=== PATIENT | male | born 1955 | race African-American/Black ===

== ENCOUNTER 2016-09-20 15:12 | Inpatient (IN) | payer BC, MEDICAID ==
[~2016-09-20] VITALS: Ht 193 cm; Wt 157.9 kg
[2016-09-20] MEDS ORDERED: ONDANSETRON HCL 4MG/2ML VIAL IV ONE (16:00)
[2016-09-20] MEDS ORDERED: LEVOFLOXACIN 750MG PREMIX 150 ML IV ONE (16:00)
[2016-09-20] MEDS ORDERED: MORPHINE SULFATE 4 MG/ML CPJ (NOT FOR IM USE) IV ONE (16:00)
[2016-09-20] MEDS ORDERED: VANCOMYCIN 1 G PREMIX 200 ML IV ONE (16:00)
[2016-09-20 16:15] LABS: BASOPHILS % 0.6 % (0.0-2.0); EOSINOPHILS % 2.1 % (0.0-5.0); HEMATOCRIT. 39.7 % (42.0-52.0); MEAN CORPUSCULAR HEMOGLOBIN 29.3 pg (28.0-32.0); MEAN CORPUSCULAR HGB CONC 32.6 g/dL (31.0-37.0); MEAN CORPUSCULAR VOLUME 89.8 fL (80.0-94.0); MEAN PLATELET VOLUME 8.4 fl (7.4-10.4); MONOCYTES % 10.3 % (2.0-8.0); PLATELET 231 x1000/uL (130-400); RED BLOOD CELL COUNT 4.42 mill/uL (4.7-6.1); RED CELL DISTRIBUTION WIDTH 14.5 % (11.6-14.6)
[2016-09-20 16:22] LABS: PROTHROMBIN TIME 10.9 sec
[2016-09-20 16:32] LABS: ALANINE AMINOTRANSFERASE 16 IU/L (13-61); ALBUMIN 2.8 g/dL (3.4-5.0); ANION GAP 9; CALCIUM 8.3 mg/dL (8.5-10.1); CARBON DIOXIDE 32 mEq/L (21-32); CHLORIDE 104 mEq/L (98-107); INDEX HEMOLYSI 1 (1-3); INDEX ICTERIC 1 (1-4); INDEX LIPEMIC 1 (1-3); NT PRO B-TYPE NATRIURETIC PEP 226 pg/mL (5-125); TROPONIN I < 0.02 ng/mL (0.00-0.04); UREA NITROGEN BLOOD 24 mg/dL (7-21); eGFR > 60 mL/min (>60)
[2016-09-20] MEDS ORDERED: ALBUTEROL (0.083%) 2.5MG/3ML NEB HHN STA (17:15)
[2016-09-20 17:36] LABS: GLUCOSE URINE NEGATIVE (NEGATIVE); KETONES URINE NEGATIVE (NEGATIVE); LEUKOCYTE ESTERASE URINE TRACE (NEGATIVE); NITRITE URINE NEGATIVE (NEGATIVE); OCCULT BLOOD URINE NEGATIVE (NEGATIVE); PH URINE 5.5 (4.5-8.0); PROTEIN URINE NEGATIVE (NEGATIVE); SPECIFIC GRAVITY URINE 1.016 (1.005-1.030)
[2016-09-20 17:38] LABS: CLARITY URINE CLEAR (CLEAR); COLOR URINE YELLOW (YELLOW)
[2016-09-20 18:09] LABS: BACTERIA URINE TRACE; RBC URINE NONE SEEN /hpf (0-2); SQUAMOUS EPITHELIAL CELL URINE FEW /lpf (RARE/1+); WBC URINE 0-2 /hpf (0-2)
[2016-09-20] MEDS ORDERED: HYDROCODONE/ACETAMINOPHEN 5/325MG TABLET PO ONE (18:30)
[2016-09-20 20:25] VITALS: BP 135/83
[2016-09-20 20:32] VITALS: BP 135/83
[2016-09-20] MEDS ORDERED: DOCUSATE SODIUM 100MG CAPSULE PO PRN (22:15)
[2016-09-20] MEDS ORDERED: ONDANSETRON HCL 4MG/2ML VIAL IV PRN (22:15)
[2016-09-20] MEDS ORDERED: MAGNESIUM/ALUMINUM HYDROXIDE/SIMETHICONE 30ML UDC PO PRN (22:15)
[2016-09-20] MEDS ORDERED: CLONIDINE 0.1MG TABLET PO PRN (22:15)
[2016-09-20] MEDS ORDERED: ACETAMINOPHEN 325MG TABLET PO PRN (22:15)
[2016-09-20] MEDS: MORPHINE SULFATE 2 MG/ML CPJ (NOT FOR IM USE) IV PRN (22:48)
[2016-09-21] MEDS ORDERED: VANCOMYCIN 2,000 MG in DEXT 5% WATER 500 ML IV NR ×2
[2016-09-21 00:22] VITALS: BP_SYST 102; BP_SYST 137; BP_DIAS 77; BP_DIAS 85
[2016-09-21 00:58] LABS: ANION GAP 6; CALCIUM 8.5 mg/dL (8.5-10.1); CARBON DIOXIDE 35 mEq/L (21-32); CHLORIDE 102 mEq/L (98-107); INDEX HEMOLYSI 1 (1-3); INDEX ICTERIC 1 (1-4); INDEX LIPEMIC 1 (1-3); UREA NITROGEN BLOOD 24 mg/dL (7-21); eGFR > 60 mL/min (>60)
[2016-09-21] MEDS: MORPHINE SULFATE 2 MG/ML CPJ (NOT FOR IM USE) IV PRN ×4 (03:00→21:35)
[2016-09-21 04:46] VITALS: BP 151/87
[2016-09-21 06:39] LABS: THYROID STIMULATING HORMONE 0.47 uIU/mL (0.36-3.74)
[2016-09-21] MEDS ORDERED: BACL-141 PO (07:57)
[2016-09-21 07:58] LABS: BASOPHILS % 0.9 % (0.0-2.0); DIFFERENTIAL COMMENT 0; EOSINOPHILS % 0.3 % (0.0-5.0); HEMATOCRIT. 39.1 % (42.0-52.0); HEMOGLOBIN. 12.4 g/dL (14.0-18.0); LYMPHOCYTES % 7.4 % (20.0-50.0); MEAN CORPUSCULAR HEMOGLOBIN 28.8 pg (28.0-32.0); MEAN CORPUSCULAR HGB CONC 31.8 g/dL (31.0-37.0); MEAN CORPUSCULAR VOLUME 90.4 fL (80.0-94.0); MEAN PLATELET VOLUME 8.6 fl (7.4-10.4); NEUTROPHILS % 80.4 % (40.0-76.0); PLATELET 236 x1000/uL (130-400); RED BLOOD CELL COUNT 4.32 mill/uL (4.7-6.1); RED CELL DISTRIBUTION WIDTH 14.7 % (11.6-14.6); WHITE BLOOD COUNT 11.5 x1000/uL (4.5-11.0)
[2016-09-21 08:00] VITALS: BP 150/87
[2016-09-21] MEDS ORDERED: FURO-151 PO (08:03)
[2016-09-21] MEDS ORDERED: METO-296 PO (08:03)
[2016-09-21] MEDS ORDERED: GABA-533 PO (08:03)
[2016-09-21] MEDS ORDERED: POTA20TA75 PO (08:03)
[2016-09-21] MEDS ORDERED: MULT-1146 PO (08:03)
[2016-09-21] MEDS ORDERED: LISI10TA5 PO (08:03)
[2016-09-21 08:04] LABS: CHLORIDE 102 mEq/L (98-107); INDEX HEMOLYSI 1 (1-3); INDEX ICTERIC 1 (1-4); INDEX LIPEMIC 1 (1-3)
[2016-09-21 08:09] LABS: ANION GAP 13; CALCIUM 7.6 mg/dL (8.5-10.1); CARBON DIOXIDE 28 mEq/L (21-32); PHOSPHORUS 3.6 mg/dL (2.5-4.9); UREA NITROGEN BLOOD 16 mg/dL (7-21); eGFR > 60 mL/min (>60)
[2016-09-21 08:13] LABS: *AMPHETAMINES SCREEN URINE NEGATIVE (NEGATIVE); *BARBITURATES SCREEN URINE NEGATIVE (NEGATIVE); *BENZODIAZEPINES SCREEN URINE NEGATIVE (NEGATIVE); *COCAINE SCREEN URINE NEGATIVE (NEGATIVE); CANNABINOID URINE SCREEN NEGATIVE (NEGATIVE); ECSTASY MDMA SCREEN URINE NEGATIVE (NEGATIVE); METHADONE URINE SCREEN NEGATIVE (NEGATIVE); OPIATES URINE SCREEN PRESUMTIVE POSITIVE (NEGATIVE); PHENCYCLIDINE URINE SCREEN NEGATIVE (NEGATIVE)
[2016-09-21] MEDS ORDERED: LISINOPRIL 10MG TABLET PO SCH ×2 (09:00)
[2016-09-21] MEDS ORDERED: POTASSIUM CHLORIDE 20MEQ TABLET SR PO SCH (09:00)
[2016-09-21] MEDS: BACLOFEN 10MG TABLET PO SCH ×3 (09:03→17:53)
[2016-09-21] MEDS: GABAPENTIN 400MG CAPSULE PO SCH ×3 (09:03→21:33)
[2016-09-21] MEDS: ENOXAPARIN 40MG/0.4ML SYR SUBCUT SCH (09:04)
[2016-09-21] MEDS: FUROSEMIDE 40MG TABLET PO SCH (09:04)
[2016-09-21] MEDS: HYDROCODONE/ACETAMINOPHEN 5/325MG TABLET PO PRN (10:18)
[2016-09-21] MEDS: VANCOMYCIN 1 G PREMIX 200 ML IV SCH ×2 (10:18→21:33)
[2016-09-21 12:00] VITALS: BP 157/96
[2016-09-21] MEDS ORDERED: MORPHINE SULFATE 2 MG/ML CPJ (NOT FOR IM USE) IV PRN (14:00)
[2016-09-21 15:34] LABS: BG BASE EXCESS 3.6 mmol/L (-2.0-2.0); BG CARBOXYHEMOGLOBIN 2.5 % (0.5-1.5); BG DEOXYHEMOGLOBIN 7.2 % (0.0-5.0); BG FRACTION INSPIRED OXYGEN 21; BG HCO3 ACT 30.2 mmol/L (22.0-26.0); BG OXYGEN SATURATION 92.6 % (92.0-98.5); BG OXYHEMOGLOBIN 90.3 % (94.0-97.0); BG PCO2 53.4 mmHg (35.0-45.0); BG PO2 65.7 mmHg (75.0-100.0); BG SAMPLE SITE RIGHT BRACHIAL; BG TOTAL HEMOGLOBIN 14.7 g/dL (12.0-18.0); BG VENT MODE ROOM AIR
[2016-09-21] MEDS: LEVOFLOXACIN 750MG PREMIX 150 ML IV SCH (17:45)
[2016-09-21 20:00] VITALS: BP 141/64
[2016-09-21] MEDS: IPRATROPIUM/ALBUTEROL 0.5-3(2.5)MG/3ML NEB INH PRN (20:51)
[2016-09-21] MEDS: PANTOT AC/MIN OIL/PET HY-PHL OINT 52.5GM (AQUAPHOR) TOP SCH (21:31)
[2016-09-22] VITALS: BP 144/68
[2016-09-22] MEDS: BACLOFEN 10MG TABLET PO SCH ×5 (00:28→23:47)
[2016-09-22] MEDS: MORPHINE SULFATE 2 MG/ML CPJ (NOT FOR IM USE) IV PRN ×4 (01:48→20:27)
[2016-09-22 04:00] VITALS: BP 138/73
[2016-09-22] MEDS: GABAPENTIN 400MG CAPSULE PO SCH ×3 (06:20→21:55)
[2016-09-22 06:34] LABS: BASOPHILS % 0.6 % (0.0-2.0); EOSINOPHILS % 0.1 % (0.0-5.0); HEMATOCRIT. 39.1 % (42.0-52.0); HEMOGLOBIN. 12.7 g/dL (14.0-18.0); LYMPHOCYTES % 8.5 % (20.0-50.0); MEAN CORPUSCULAR HEMOGLOBIN 29.1 pg (28.0-32.0); MEAN CORPUSCULAR HGB CONC 32.6 g/dL (31.0-37.0); MEAN CORPUSCULAR VOLUME 89.3 fL (80.0-94.0); MEAN PLATELET VOLUME 8.2 fl (7.4-10.4); MONOCYTES % 11.9 % (2.0-8.0); NEUTROPHILS % 78.9 % (40.0-76.0); PLATELET 228 x1000/uL (130-400); RED BLOOD CELL COUNT 4.38 mill/uL (4.7-6.1); RED CELL DISTRIBUTION WIDTH 14.5 % (11.6-14.6); WHITE BLOOD COUNT 10.9 x1000/uL (4.5-11.0)
[2016-09-22 07:25] LABS: CHLORIDE 100 mEq/L (98-107); INDEX HEMOLYSI 1 (1-3); INDEX ICTERIC 1 (1-4); INDEX LIPEMIC 1 (1-3)
[2016-09-22 07:36] LABS: ANION GAP 11; CALCIUM 8.6 mg/dL (8.5-10.1); CARBON DIOXIDE 32 mEq/L (21-32); PHOSPHORUS 3.3 mg/dL (2.5-4.9); UREA NITROGEN BLOOD 15 mg/dL (7-21); eGFR > 60 mL/min (>60)
[2016-09-22 08:00] VITALS: BP 15/76
[2016-09-22] MEDS: FUROSEMIDE 40MG TABLET PO SCH (08:47)
[2016-09-22] MEDS: ENOXAPARIN 40MG/0.4ML SYR SUBCUT SCH (08:48)
[2016-09-22] MEDS: IPRATROPIUM/ALBUTEROL 0.5-3(2.5)MG/3ML NEB INH PRN ×2 (09:34→14:01)
[2016-09-22 12:00] VITALS: BP 148/74
[2016-09-22] MEDS: PANTOT AC/MIN OIL/PET HY-PHL OINT 52.5GM (AQUAPHOR) TOP SCH (13:05)
[2016-09-22] MEDS: VANCOMYCIN 2,000 MG in DEXT 5% WATER 500 ML IV SCH ×2 (13:11→21:55)
[2016-09-22 16:00] VITALS: BP 140/70
[2016-09-22] MEDS: HYDROCODONE/ACETAMINOPHEN 5/325MG TABLET PO PRN (16:35)
[2016-09-22] MEDS: LEVOFLOXACIN 750MG PREMIX 150 ML IV SCH (16:39)
[2016-09-22 20:00] VITALS: BP 134/76
[2016-09-23] VITALS: BP 129/74
[2016-09-23] MEDS: MORPHINE SULFATE 2 MG/ML CPJ (NOT FOR IM USE) IV PRN ×3 (00:25→16:09)
[2016-09-23 04:00] VITALS: BP 136/77
[2016-09-23] MEDS: BACLOFEN 10MG TABLET PO SCH ×3 (05:47→17:50)
[2016-09-23] MEDS: GABAPENTIN 400MG CAPSULE PO SCH ×3 (05:47→21:45)
[2016-09-23 07:13] LABS: BASOPHILS % 0.3 % (0.0-2.0); EOSINOPHILS % 1.5 % (0.0-5.0); HEMATOCRIT. 39.7 % (42.0-52.0); HEMOGLOBIN. 13.1 g/dL (14.0-18.0); MEAN CORPUSCULAR HEMOGLOBIN 29.5 pg (28.0-32.0); MEAN CORPUSCULAR HGB CONC 33.1 g/dL (31.0-37.0); MEAN CORPUSCULAR VOLUME 89.1 fL (80.0-94.0); MEAN PLATELET VOLUME 8.2 fl (7.4-10.4); MONOCYTES % 12.2 % (2.0-8.0); PLATELET 227 x1000/uL (130-400); RED BLOOD CELL COUNT 4.45 mill/uL (4.7-6.1); RED CELL DISTRIBUTION WIDTH 14.4 % (11.6-14.6); WHITE BLOOD COUNT 9.1 x1000/uL (4.5-11.0)
[2016-09-23 08:00] LABS: CHLORIDE 100 mEq/L (98-107); INDEX HEMOLYSI 1 (1-3); INDEX ICTERIC 1 (1-4); INDEX LIPEMIC 1 (1-3)
[2016-09-23 08:13] LABS: ANION GAP 10; CALCIUM 8.7 mg/dL (8.5-10.1); CARBON DIOXIDE 33 mEq/L (21-32); UREA NITROGEN BLOOD 14 mg/dL (7-21); eGFR > 60 mL/min (>60)
[2016-09-23 08:30] VITALS: BP 155/80
[2016-09-23] MEDS: VANCOMYCIN 2,000 MG in DEXT 5% WATER 500 ML IV SCH ×2 (09:21→21:45)
[2016-09-23] MEDS: FUROSEMIDE 40MG TABLET PO SCH (09:22)
[2016-09-23] MEDS: ENOXAPARIN 40MG/0.4ML SYR SUBCUT SCH ×2 (09:22→21:46)
[2016-09-23] MEDS: PANTOT AC/MIN OIL/PET HY-PHL OINT 52.5GM (AQUAPHOR) TOP SCH (09:23)
[2016-09-23] MEDS: AMIODARONE HCL 200 MG TABLET PO SCH (09:58)
[2016-09-23] MEDS: HYDROCODONE/ACETAMINOPHEN 5/325MG TABLET PO PRN ×2 (11:59→18:53)
[2016-09-23 12:00] VITALS: BP 158/85
[2016-09-23 14:48] LABS: *AMPHETAMINES SCREEN URINE NEGATIVE (NEGATIVE); *BARBITURATES SCREEN URINE NEGATIVE (NEGATIVE); *BENZODIAZEPINES SCREEN URINE NEGATIVE (NEGATIVE); *COCAINE SCREEN URINE NEGATIVE (NEGATIVE); CANNABINOID URINE SCREEN NEGATIVE (NEGATIVE); ECSTASY MDMA SCREEN URINE NEGATIVE (NEGATIVE); METHADONE URINE SCREEN NEGATIVE (NEGATIVE); OPIATES URINE SCREEN PRESUMTIVE POSITIVE (NEGATIVE); PHENCYCLIDINE URINE SCREEN NEGATIVE (NEGATIVE)
[2016-09-23 16:00] VITALS: BP 146/77
[2016-09-23] MEDS: LEVOFLOXACIN 750MG PREMIX 150 ML IV SCH (16:17)
[2016-09-23 20:00] VITALS: BP 123/91
[2016-09-24] VITALS: BP 156/83
[2016-09-24] MEDS: BACLOFEN 10MG TABLET PO SCH ×4 (00:20→17:23)
[2016-09-24] MEDS: MORPHINE SULFATE 2 MG/ML CPJ (NOT FOR IM USE) IV PRN ×4 (00:20→17:24)
[2016-09-24 04:00] VITALS: BP 140/80
[2016-09-24] MEDS: GABAPENTIN 400MG CAPSULE PO SCH ×2 (05:44→15:25)
[2016-09-24 06:38] LABS: BASOPHILS % 0.4 % (0.0-2.0); EOSINOPHILS % 2.3 % (0.0-5.0); HEMATOCRIT. 44.2 % (42.0-52.0); HEMOGLOBIN. 14.1 g/dL (14.0-18.0); LYMPHOCYTES % 13.1 % (20.0-50.0); MEAN CORPUSCULAR HEMOGLOBIN 28.8 pg (28.0-32.0); MEAN CORPUSCULAR HGB CONC 31.9 g/dL (31.0-37.0); MEAN CORPUSCULAR VOLUME 90.3 fL (80.0-94.0); MEAN PLATELET VOLUME 8.3 fl (7.4-10.4); MONOCYTES % 10.9 % (2.0-8.0); NEUTROPHILS % 73.3 % (40.0-76.0); PLATELET 260 x1000/uL (130-400); RED CELL DISTRIBUTION WIDTH 14.1 % (11.6-14.6); WHITE BLOOD COUNT 9.2 x1000/uL (4.5-11.0)
[2016-09-24 07:35] LABS: ALANINE AMINOTRANSFERASE 39 IU/L (13-61); ALBUMIN 2.5 g/dL (3.4-5.0); ANION GAP 9; CALCIUM 8.6 mg/dL (8.5-10.1); CARBON DIOXIDE 35 mEq/L (21-32); CHLORIDE 100 mEq/L (98-107); INDEX HEMOLYSI 1 (1-3); INDEX ICTERIC 1 (1-4); INDEX LIPEMIC 1 (1-3); MAGNESIUM 1.9 mg/dL (1.8-2.4); UREA NITROGEN BLOOD 16 mg/dL (7-21); eGFR > 60 mL/min (>60)
[2016-09-24] MEDS: FUROSEMIDE 40MG TABLET PO SCH (08:26)
[2016-09-24] MEDS: VANCOMYCIN 2,000 MG in DEXT 5% WATER 500 ML IV SCH (08:26)
[2016-09-24] MEDS: ENOXAPARIN 40MG/0.4ML SYR SUBCUT SCH (08:27)
[2016-09-24] MEDS: AMIODARONE HCL 200 MG TABLET PO SCH (08:27)
[2016-09-24] MEDS: PANTOT AC/MIN OIL/PET HY-PHL OINT 52.5GM (AQUAPHOR) TOP SCH (08:28)
[2016-09-24] MEDS ORDERED: METOPROLOL TARTRATE 25MG TABLET PO SCH (10:00)
[2016-09-24] MEDS ORDERED: LEVOFLOXACIN 250MG TABLET PO SCH (11:00)
[2016-09-24] MEDS ORDERED: AMIO200T39 PO (15:14)
[2016-09-24] MEDS ORDERED: DOXY100C2 PO (15:14)
[2016-09-24] MEDS ORDERED: METO25TA6 PO (15:14)
[2016-09-24] MEDS ORDERED: CLIN-123 PO (15:14)
[2016-09-24 16:00] VITALS: BP 115/69
[2016-09-24 17:38] VITALS: BP 115/69
[2016-09-24] MEDS ORDERED: DOXYCYCLINE HYCLATE 100MG CAPSULE PO SCH (18:00)
[2016-09-24] MEDS ORDERED: CLINDAMYCIN HCL 150MG CAPSULE PO SCH (18:00)
== END 2016-09-24 20:24 | DRG 720 ==
LOC: ER 15:18 → 6EST 17:33 → 5WST 09-21 18:53
PROVIDERS: ADMIT Internal Medicine; ATTEND Internal Medicine
DX: A41.9 Sepsis, unspecified organism (principal); E43 Unspecified severe protein-calorie malnutrition; I47.2 Ventricular tachycardia; N17.9 Acute kidney failure, unspecified; D64.9 Anemia, unspecified; S81.802A Unspecified open wound, left lower leg, initial encounter; I13.10 Hypertensive heart and chronic kidney disease without heart failure, with stage 1 through stage 4 chronic kidney disease, or unspecified chronic kidney disease; N39.0 Urinary tract infection, site not specified; L03.116 Cellulitis of left lower limb; E87.5 Hyperkalemia; I73.9 Peripheral vascular disease, unspecified; I25.10 Atherosclerotic heart disease of native coronary artery without angina pectoris; E66.01 Morbid (severe) obesity due to excess calories; E78.00 Pure hypercholesterolemia, unspecified; F10.20 Alcohol dependence, uncomplicated; F17.210 Nicotine dependence, cigarettes, uncomplicated; I87.2 Venous insufficiency (chronic) (peripheral); M86.9 Osteomyelitis, unspecified; L03.115 Cellulitis of right lower limb; J44.9 Chronic obstructive pulmonary disease, unspecified; N18.9 Chronic kidney disease, unspecified; R35.1 Nocturia; Z79.82 Long term (current) use of aspirin; Z79.899 Other long term (current) drug therapy; Z88.0 Allergy status to penicillin; I25.2 Old myocardial infarction; Z71.6 Tobacco abuse counseling; Z68.41 Body mass index [BMI] 40.0-44.9, adult
CPT/HCPCS: 36415; 36600; 71010; 73590; 76770; 80048; 80053; 80061; 80202; 80305; 81001; 82375; 82805; 83605; 83735; 83880; 84100; 84443; 84484; 85025; 85610; 87040; 87086; 93005; 93306; 93923; 93970; 94640; 96365; 96366; 96367; 96375; 97162; 99285; J1650; J1956; J2270; J2405; J3370; J7060; J7611; J7620

== ENCOUNTER 2017-01-02 23:34 | Inpatient (IN) | payer MEDICAID ==
[~2017-01-02] VITALS: Ht 188 cm; Wt 170.1 kg
[~2017-01-02 23:34] MED LIST: AMI2 PO; BACL-141 PO; CLIN-123 PO; DOXY100C2 PO; FURO-151 PO; GABA-533 PO; LISI10TA5 PO; METO-396 PO; METO25TA6 PO; MULT-1146 PO; POTA20TA12 PO
[2017-01-03] VITALS (45 sets, daily range): BP systolic 87–168; BP diastolic 47–127
[2017-01-03] MEDS ORDERED: SODIUM CHLORIDE 0.9% 1,000 ML IV ONE (01:14)
[2017-01-03 01:44] LABS: BASOPHILS % 0.4 % (0.0-2.0); EOSINOPHILS % 0.6 % (0.0-5.0); HEMATOCRIT. 45.3 % (42.0-52.0); HEMOGLOBIN. 14.7 g/dL (14.0-18.0); LYMPHOCYTES % 8.4 % (20.0-50.0); MEAN CORPUSCULAR HEMOGLOBIN 29.4 pg (28.0-32.0); MEAN CORPUSCULAR VOLUME 90.7 fL (80.0-94.0); MONOCYTES % 11.5 % (2.0-8.0); NEUTROPHILS % 79.1 % (40.0-76.0); PLATELET 219 x1000/uL (130-400); RED BLOOD CELL COUNT 4.99 mill/uL (4.7-6.1); RED CELL DISTRIBUTION WIDTH 15.8 % (11.6-14.6)
[2017-01-03 01:46] LABS: PROTHROMBIN TIME 10.9 sec (9.4-11.6)
[2017-01-03 01:50] LABS: BG BASE EXCESS -6.2 mmol/L (-2.0-2.0); BG CARBOXYHEMOGLOBIN 2.8 % (0.5-1.5); BG DEOXYHEMOGLOBIN 15.6 % (0.0-5.0); BG FRACTION INSPIRED OXYGEN 21; BG HCO3 ACT 21.1 mmol/L (22.0-26.0); BG METHEMOGLOBIN 0.2 % (0.0-1.5); BG OXYGEN SATURATION 83.9 % (92.0-98.5); BG OXYHEMOGLOBIN 81.4 % (94.0-97.0); BG PCO2 48.1 mmHg (35.0-45.0); BG PH 7.259 (7.350-7.450); BG PO2 49.5 mmHg (75.0-100.0); BG SAMPLE SITE RIGHT BRACHIAL; BG TOTAL HEMOGLOBIN 15.6 g/dL (12.0-18.0); BG VENT MODE ROOM AIR
[2017-01-03 01:54] LABS: CARBON DIOXIDE 23 mEq/L (21-32); ETHANOL BLOOD < 10 mg/dL; TROPONIN I < 0.02 ng/mL (0.00-0.04)
[2017-01-03 01:55] LABS: CHLORIDE 111 mEq/L (98-107)
[2017-01-03] MEDS ORDERED: SODIUM BICARBONATE 8.4% 1 MEQ/ML 50ML SYR IV ONE (02:30)
[2017-01-03] MEDS ORDERED: CALCIUM CHLORIDE 1GM/10ML SYR IV ONE (02:30)
[2017-01-03] MEDS ORDERED: ALBUTEROL (0.083%) 2.5MG/3ML NEB HHN ONE (02:30)
[2017-01-03] MEDS ORDERED: INSULIN REGULAR (HUMULIN R) 300UNITS/3ML IV ONE (02:30)
[2017-01-03] MEDS ORDERED: DEXTROSE 50% WATER 50ML SYRINGE IV ONE (02:30)
[2017-01-03] MEDS ORDERED: SODIUM BICARBONATE 100 MEQ in DEXTROSE 5% WATER 1,000 ML IV SCH (02:45)
[2017-01-03] MEDS ORDERED: SODIUM POLYSTYRENE SULFONATE 15 G/60 ML BOT PO ONE (02:45)
[2017-01-03] MEDS ORDERED: FUROSEMIDE 40MG/4ML VIAL IVP NR (03:00)
[2017-01-03 03:17] LABS: CLARITY URINE CLEAR (CLEAR); COLOR URINE YELLOW (YELLOW); GLUCOSE URINE NEGATIVE (NEGATIVE); KETONES URINE NEGATIVE (NEGATIVE); LEUKOCYTE ESTERASE URINE NEGATIVE (NEGATIVE); NITRITE URINE NEGATIVE (NEGATIVE); OCCULT BLOOD URINE NEGATIVE (NEGATIVE); PROTEIN URINE TRACE (NEGATIVE); SPECIFIC GRAVITY URINE 1.019 (1.005-1.030)
[2017-01-03 04:01] LABS: *AMPHETAMINES SCREEN URINE NEGATIVE (NEGATIVE); *BARBITURATES SCREEN URINE NEGATIVE (NEGATIVE); *BENZODIAZEPINES SCREEN URINE NEGATIVE (NEGATIVE); *COCAINE SCREEN URINE NEGATIVE (NEGATIVE); CANNABINOID URINE SCREEN NEGATIVE (NEGATIVE); METHADONE URINE SCREEN NEGATIVE (NEGATIVE); OPIATES URINE SCREEN PRESUMTIVE POSITIVE (NEGATIVE); PHENCYCLIDINE URINE SCREEN NEGATIVE (NEGATIVE)
[2017-01-03] MEDS ORDERED: SODIUM POLYSTYRENE SULFONATE 15 G/60 ML BOT PO NR (04:45)
[2017-01-03] MEDS ORDERED: BLOOD SUGAR DIAGNOSTIC STRIP TEST NR (04:45)
[2017-01-03] MEDS ORDERED: SODIUM BICARBONATE 50 MEQ in DEXTROSE 5% WATER 1,000 ML IV SCH (06:00)
[2017-01-03] MEDS: IPRATROPIUM/ALBUTEROL 0.5-3(2.5)MG/3ML NEB HHN SCH ×4 (08:19→20:09)
[2017-01-03 08:57] LABS: HEPATITIS B SURFACE ANTIGEN NEGATIVE
[2017-01-03 09:14] LABS: PHOSPHORUS 4.8 mg/dL (2.5-4.9)
[2017-01-03 09:25] LABS: HEPATITIS B CORE AB IGM NEGATIVE
[2017-01-03 09:26] LABS: HEPATITIS A AB IGM NEGATIVE (NEGATIVE)
[2017-01-03] MEDS ORDERED: HEPARIN SODIUM 1,000 UNIT/1ML VIAL IV NR (12:30)
[2017-01-03] MEDS ORDERED: LIDOCAINE HCL 1% 20ML VIAL (Pyxis) INJ ONE (13:27)
[2017-01-03 19:31] LABS: BASOPHILS % 0.8 % (0.0-2.0); EOSINOPHILS % 0.3 % (0.0-5.0); HEMATOCRIT. 40.3 % (42.0-52.0); LYMPHOCYTES % 9.2 % (20.0-50.0); MEAN CORPUSCULAR HEMOGLOBIN 29.1 pg (28.0-32.0); MEAN CORPUSCULAR VOLUME 90.4 fL (80.0-94.0); MEAN PLATELET VOLUME 8.5 fl (7.4-10.4); MONOCYTES % 12.2 % (2.0-8.0); NEUTROPHILS % 77.5 % (40.0-76.0); PLATELET 187 x1000/uL (130-400); RED BLOOD CELL COUNT 4.46 mill/uL (4.7-6.1); RED CELL DISTRIBUTION WIDTH 15.9 % (11.6-14.6)
[2017-01-04] VITALS (59 sets, daily range): BP systolic 96–150; BP diastolic 50–80
[2017-01-04] MEDS: IPRATROPIUM/ALBUTEROL 0.5-3(2.5)MG/3ML NEB HHN SCH ×6 (00:04→20:46)
[2017-01-04 05:33] LABS: BASOPHILS % 0.4 % (0.0-2.0); EOSINOPHILS % 0.8 % (0.0-5.0); HEMATOCRIT. 38.9 % (42.0-52.0); HEMOGLOBIN. 12.9 g/dL (14.0-18.0); LYMPHOCYTES % 13.1 % (20.0-50.0); MEAN CORPUSCULAR HEMOGLOBIN 29.3 pg (28.0-32.0); MEAN CORPUSCULAR VOLUME 88.2 fL (80.0-94.0); MEAN PLATELET VOLUME 9.1 fl (7.4-10.4); MONOCYTES % 13.9 % (2.0-8.0); NEUTROPHILS % 71.8 % (40.0-76.0); PLATELET 183 x1000/uL (130-400); RED BLOOD CELL COUNT 4.41 mill/uL (4.7-6.1); RED CELL DISTRIBUTION WIDTH 15.3 % (11.6-14.6)
[2017-01-04] MEDS ORDERED: HYDROCODONE/ACETAMINOPHEN 5/325MG TABLET PO PRN (15:45)
[2017-01-04] MEDS ORDERED: CLONIDINE 0.1MG TABLET PO PRN (15:45)
[2017-01-04] MEDS ORDERED: ONDANSETRON HCL 4MG/2ML VIAL IV PRN (15:45)
[2017-01-04] MEDS: SODIUM CHLORIDE 0.9% 1,000 ML IV SCH (17:50)
[2017-01-04] MEDS ORDERED: VANCOMYCIN 2,000 MG in DEXT 5% WATER 400 ML IV NR (18:00)
[2017-01-05] VITALS (33 sets, daily range): BP systolic 116–166; BP diastolic 57–85
[2017-01-05] MEDS: IPRATROPIUM/ALBUTEROL 0.5-3(2.5)MG/3ML NEB HHN SCH ×3 (00:16→18:11)
[2017-01-05] MEDS: MAGNESIUM/ALUMINUM HYDROXIDE/SIMETHICONE 30ML UDC PO PRN ×3 (02:02→10:26)
[2017-01-05] MEDS: SODIUM CHLORIDE 0.9% 1,000 ML IV SCH (03:48)
[2017-01-05 05:20] LABS: BASOPHILS % 0.7 % (0.0-2.0); EOSINOPHILS % 1.2 % (0.0-5.0); HEMATOCRIT. 38.8 % (42.0-52.0); HEMOGLOBIN. 12.9 g/dL (14.0-18.0); LYMPHOCYTES % 12.8 % (20.0-50.0); MEAN CORPUSCULAR HEMOGLOBIN 29.4 pg (28.0-32.0); MEAN CORPUSCULAR VOLUME 88.7 fL (80.0-94.0); MEAN PLATELET VOLUME 8.9 fl (7.4-10.4); MONOCYTES % 14.4 % (2.0-8.0); NEUTROPHILS % 70.9 % (40.0-76.0); PLATELET 187 x1000/uL (130-400); RED BLOOD CELL COUNT 4.38 mill/uL (4.7-6.1); RED CELL DISTRIBUTION WIDTH 15.1 % (11.6-14.6)
[2017-01-05 06:10] LABS: CARBON DIOXIDE 29 mEq/L (21-32); CHLORIDE 103 mEq/L (98-107)
[2017-01-05] MEDS ORDERED: FUROSEMIDE 40MG/4ML VIAL IVP NR (12:15)
[2017-01-05] MEDS ORDERED: ENOXAPARIN 40MG/0.4ML SYR SUBCUT SCH (12:15)
[2017-01-05 12:41] LABS: BG BASE EXCESS 4.1 mmol/L (-2.0-2.0); BG CARBOXYHEMOGLOBIN 0.9 % (0.5-1.5); BG DEOXYHEMOGLOBIN 6.4 % (0.0-5.0); BG FRACTION INSPIRED OXYGEN 28; BG HCO3 ACT 29.3 mmol/L (22.0-26.0); BG METHEMOGLOBIN 0.2 % (0.0-1.5); BG OXYGEN SATURATION 93.5 % (92.0-98.5); BG OXYHEMOGLOBIN 92.5 % (94.0-97.0); BG PCO2 45.9 mmHg (35.0-45.0); BG PH 7.423 (7.350-7.450); BG PO2 69.5 mmHg (75.0-100.0); BG SAMPLE SITE RIGHT RADIAL; BG TOTAL HEMOGLOBIN 14.4 g/dL (12.0-18.0); BG VENT MODE NASAL CANNULA
[2017-01-05] MEDS ORDERED: SILVER SULFADIAZINE 1% CREAM 50GM TOP SCH (21:00)
[2017-01-08 07:13] LABS: A/G RATIO 0.9 (0.7-1.7); ALBUMIN 3.2 g/dL (2.9-4.4); ALPHA-1-GLOBULIN 0.3 g/dL (0.0-0.4); ALPHA-2-GLOBULIN 0.8 g/dL (0.4-1.0); BETA GLOBULIN 0.9 g/dL (0.7-1.3); GAMMA GLOBULINS 1.7 g/dL (0.4-1.8); GLOBULIN TOTAL 3.7 g/dL (2.2-3.9); M-SPIKE Not Observed g/dL (Not Observed); TOTAL PROTEIN SERUM 6.9 g/dL (6.0-8.5)
== END 2017-01-05 19:30 | DRG 720 ==
LOC: ER 23:34 → MICUNO 01-03 02:19 → EDBEDREQSVC 01-03 02:28 → EDBEDREQ 01-03 02:28 → ENRESERV 01-03 03:06 → MICUSO 01-03 08:30
PROVIDERS: ADMIT Internal Medicine; ATTEND Internal Medicine
PROC: 5A09357 Assistance with Respiratory Ventilation, Less than 24 Consecutive Hours, Continuous Positive Airway Pressure (ICD-10-PCS; principal; 2017-01-03)
PROC: 02HV33Z Insertion of Infusion Device into Superior Vena Cava, Percutaneous Approach (ICD-10-PCS; 2017-01-03)
PROC: B548ZZA Ultrasonography of Superior Vena Cava, Guidance (ICD-10-PCS; 2017-01-03)
DX: A41.9 Sepsis, unspecified organism (principal); J96.01 Acute respiratory failure with hypoxia; N17.0 Acute kidney failure with tubular necrosis; I13.0 Hypertensive heart and chronic kidney disease with heart failure and stage 1 through stage 4 chronic kidney disease, or unspecified chronic kidney disease; I50.32 Chronic diastolic (congestive) heart failure; E87.5 Hyperkalemia; N18.9 Chronic kidney disease, unspecified; J44.9 Chronic obstructive pulmonary disease, unspecified; I25.10 Atherosclerotic heart disease of native coronary artery without angina pectoris; E66.9 Obesity, unspecified; F17.200 Nicotine dependence, unspecified, uncomplicated; I83.009 Varicose veins of unspecified lower extremity with ulcer of unspecified site; L03.90 Cellulitis, unspecified; L97.909 Non-pressure chronic ulcer of unspecified part of unspecified lower leg with unspecified severity; W18.30XA Fall on same level, unspecified, initial encounter; Y93.89 Activity, other specified; Y92.89 Other specified places as the place of occurrence of the external cause; Y99.8 Other external cause status; Z88.0 Allergy status to penicillin; Z79.899 Other long term (current) drug therapy
CPT/HCPCS: 36415; 36556; 36600; 70450; 71010; 73560; 76770; 76937; 80048; 80053; 80305; 81001; 82375; 82805; 82962; 83735; 83970; 84100; 84153; 84155; 84165; 84484; 85025; 85610; 86705; 86709; 86803; 87340; 93005; 93970; 94640; 94660; 96374; 96375; 96376; 97163; 99291; C1752; G0482; J1644; J1650; J1815; J1940; J2405; J3370; J3490; J7030; J7050; J7060; J7070; J7611; J7620; A4315

== ENCOUNTER 2017-05-31 16:11 | Inpatient (IN) | payer MEDICAID ==
[~2017-05-31] VITALS: Ht 193 cm; Wt 182.4 kg
[~2017-05-31 16:11] MED LIST changes: +ASPI-1159 PO; +ATROV IH; +CLON0.1T PO; +NIFE30TA94 PO; +SULF1TAB48 PO; +TIOT18CA3 IH
[2017-05-31] MEDS ORDERED: SODIUM CHLORIDE 0.9% 1,000 ML IV ONE (22:26)
[2017-05-31 23:02] LABS: CLARITY URINE CLEAR (CLEAR); COLOR URINE YELLOW (YELLOW); KETONES URINE NEGATIVE (NEGATIVE); LEUKOCYTE ESTERASE URINE NEGATIVE (NEGATIVE); NITRITE URINE NEGATIVE (NEGATIVE); OCCULT BLOOD URINE NEGATIVE (NEGATIVE); PROTEIN URINE NEGATIVE (NEGATIVE); SPECIFIC GRAVITY URINE 1.019 (1.005-1.030); UROBILINOGEN URINE 0.2 E.U./dL (0.2-1.0)
[2017-05-31 23:04] LABS: HEMATOCRIT. 43.1 % (42.0-52.0); HEMOGLOBIN. 13.3 g/dL (14.0-18.0); MEAN CORPUSCULAR HEMOGLOBIN 27.4 pg (28.0-32.0); MEAN CORPUSCULAR VOLUME 88.5 fL (80.0-94.0); MEAN PLATELET VOLUME 8.5 fl (7.4-10.4); PLATELET 331 x1000/uL (130-400); RED BLOOD CELL COUNT 4.87 mill/uL (4.7-6.1); RED CELL DISTRIBUTION WIDTH 16.1 % (11.6-14.6)
[2017-05-31 23:06] LABS: CHLORIDE 109 mEq/L (98-107)
[2017-05-31 23:09] LABS: INR 1.1; PROTHROMBIN TIME 11.6 sec (9.4-11.6)
[2017-05-31 23:15] LABS: CARBON DIOXIDE 25 mEq/L (21-32)
[2017-05-31 23:23] LABS: PLATELET ESTIMATE NORMAL
[2017-06-01] MEDS ORDERED: CALCIUM GLUCONATE 1,000 MG in DEXTROSE 5% WATER 50 ML IV ONE ×2
[2017-06-01] MEDS ORDERED: INSULIN REGULAR (HUMULIN R) 300UNITS/3ML SUBCUT ONE
[2017-06-01] MEDS ORDERED: ALBUTEROL (0.5%) 2.5MG/0.5ML NEB HHN ONE
[2017-06-01] MEDS ORDERED: DEXTROSE 50% WATER 50ML SYRINGE IV ONE
[2017-06-01] MEDS ORDERED: SODIUM POLYSTYRENE SULFONATE 15 G/60 ML BOT PO ONE (00:30)
[2017-06-01] MEDS ORDERED: VANCOMYCIN 1 G PREMIX 200 ML IV SCH (00:30)
[2017-06-01] MEDS ORDERED: ONDANSETRON 4MG ODT PO ONE (03:15)
[2017-06-01] MEDS ORDERED: MORPHINE SULFATE 4 MG/ML CPJ (NOT FOR IM USE) IV ONE (03:15)
[2017-06-01] MEDS ORDERED: ALBUTEROL (0.083%) 2.5MG/3ML NEB HHN ONE ×2 (03:15)
[2017-06-01] MEDS ORDERED: SODIUM CHLORIDE 0.9% 1,000 ML IV SCH (06:15)
[2017-06-01 09:32] LABS: HEMATOCRIT. 41.8 % (42.0-52.0); HEMOGLOBIN. 13.2 g/dL (14.0-18.0); MEAN CORPUSCULAR HEMOGLOBIN 27.7 pg (28.0-32.0); MEAN CORPUSCULAR VOLUME 87.9 fL (80.0-94.0); MEAN PLATELET VOLUME 8.2 fl (7.4-10.4); PLATELET 316 x1000/uL (130-400); RED BLOOD CELL COUNT 4.76 mill/uL (4.7-6.1); RED CELL DISTRIBUTION WIDTH 16.5 % (11.6-14.6)
[2017-06-01 09:47] LABS: CARBON DIOXIDE 23 mEq/L (21-32); CHLORIDE 115 mEq/L (98-107)
[2017-06-01 10:11] LABS: PLATELET ESTIMATE NORMAL
[2017-06-01] MEDS ORDERED: SODIUM BICARBONATE 8.4% 1 MEQ/ML 50ML SYR IV NR ×2 (10:14→16:00)
[2017-06-01] MEDS ORDERED: INSULIN REGULAR (HUMULIN R) 300UNITS/3ML IV NR (10:14)
[2017-06-01] MEDS ORDERED: SODIUM POLYSTYRENE SULFONATE 15 G/60 ML BOT PO NR ×2 (10:15→16:00)
[2017-06-01] MEDS ORDERED: IPRATROPIUM/ALBUTEROL 0.5-3(2.5)MG/3ML NEB HHN NR (10:16)
[2017-06-01] MEDS ORDERED: IPRATROPIUM/ALBUTEROL 0.5-3(2.5)MG/3ML NEB ONE (10:21)
[2017-06-01] MEDS: DEXTROSE 50% WATER 50ML SYRINGE IV NR ×2 (10:46→10:48)
[2017-06-01 11:52] LABS: BG BASE EXCESS -7.6 mmol/L (-2.0-2.0); BG CARBOXYHEMOGLOBIN 2.1 % (0.5-1.5); BG DEOXYHEMOGLOBIN 5.6 % (0.0-5.0); BG METHEMOGLOBIN 0.3 % (0.0-1.5); BG OXYGEN SATURATION 94.3 % (92.0-98.5); BG PH 7.229 (7.350-7.450); BG PO2 77.1 mmHg (75.0-100.0); BG SAMPLE SITE RIGHT RADIAL; BG TOTAL HEMOGLOBIN 13.7 g/dL (12.0-18.0); BG VENT MODE NASAL CANNULA
[2017-06-01 13:47] VITALS: BP 127/66
[2017-06-01 14:00] VITALS: BP 148/73
[2017-06-01] MEDS: ASPIRIN 81MG EC TABLET PO SCH (14:25)
[2017-06-01] MEDS: METHYLPREDNISOLONE SOD SUCC 40 MG/ML VIAL IV SCH ×2 (14:25→21:19)
[2017-06-01] MEDS: FUROSEMIDE 40MG/4ML VIAL IV SCH (14:25)
[2017-06-01] MEDS: ENOXAPARIN 40MG/0.4ML SYR SUBCUT SCH ×2 (14:26→21:19)
[2017-06-01] MEDS ORDERED: SILVER SULFADIAZINE 1% CREAM 25GM TOP NR (15:15)
[2017-06-01 16:00] VITALS: BP 151/74
[2017-06-01] MEDS ORDERED: DEXTROSE 50% WATER 50ML SYRINGE IV NR (16:00)
[2017-06-01] MEDS: IPRATROPIUM/ALBUTEROL 0.5-3(2.5)MG/3ML NEB INH SCH ×2 (16:48→20:10)
[2017-06-01 16:55] LABS: PHOSPHORUS 3.9 mg/dL (2.5-4.9)
[2017-06-01] MEDS ORDERED: SODIUM CHLORIDE 0.9% IV NR (17:00)
[2017-06-01] MEDS ORDERED: INSULIN REGULAR (HUMULIN R) UD 100 UNITS/ML SYR IV NR (17:00)
[2017-06-01] MEDS ORDERED: CALCIUM GLUCONATE IV NR (17:00)
[2017-06-01 18:00] VITALS: BP 162/77
[2017-06-01] MEDS: VANCOMYCIN 1250MG in DEXTROSE 5% WATER 250ML IV SCH (18:53)
[2017-06-01 20:00] VITALS: BP 150/70
[2017-06-01 21:36] LABS: BG BILEVEL POS AIRWAY PRESSURE 15/5; BG CARBOXYHEMOGLOBIN 1.4 % (0.5-1.5); BG DEOXYHEMOGLOBIN 5.1 % (0.0-5.0); BG FRACTION INSPIRED OXYGEN 30; BG HCO3 ACT 26.3 mmol/L (22.0-26.0); BG METHEMOGLOBIN 0.3 % (0.0-1.5); BG OXYGEN SATURATION 94.8 % (92.0-98.5); BG OXYHEMOGLOBIN 93.2 % (94.0-97.0); BG PCO2 54.8 mmHg (35.0-45.0); BG PH 7.299 (7.350-7.450); BG PO2 74.6 mmHg (75.0-100.0); BG SAMPLE SITE RIGHT RADIAL; BG VENT MODE MASK - BIPAP; BG VENT RATE 16 set
[2017-06-01 22:00] VITALS: BP 128/75
[2017-06-01 22:01] LABS: CHLORIDE 111 mEq/L (98-107)
[2017-06-01 22:07] LABS: CARBON DIOXIDE 28 mEq/L (21-32)
[2017-06-01] MEDS: MORPHINE SULFATE 2 MG/ML CPJ (NOT FOR IM USE) IV PRN (22:46)
[2017-06-02] VITALS (13 sets, daily range): BP systolic 126–162; BP diastolic 59–85
[2017-06-02] MEDS: METHYLPREDNISOLONE SOD SUCC 40 MG/ML VIAL IV SCH ×3 (06:45→21:07)
[2017-06-02] MEDS: MORPHINE SULFATE 2 MG/ML CPJ (NOT FOR IM USE) IV PRN ×4 (06:45→22:38)
[2017-06-02 06:48] LABS: HEMATOCRIT. 42.2 % (42.0-52.0); HEMOGLOBIN. 13.3 g/dL (14.0-18.0); MEAN CORPUSCULAR VOLUME 88.7 fL (80.0-94.0); MEAN PLATELET VOLUME 8.3 fl (7.4-10.4); PLATELET 332 x1000/uL (130-400); RED BLOOD CELL COUNT 4.76 mill/uL (4.7-6.1); RED CELL DISTRIBUTION WIDTH 16.5 % (11.6-14.6)
[2017-06-02 08:08] LABS: CARBON DIOXIDE 28 mEq/L (21-32); CHLORIDE 110 mEq/L (98-107); LDL CHOLESTEROL 33 mg/dL (5-100)
[2017-06-02 08:13] LABS: HDL CHOLESTEROL 47 mg/dL (40-59); T4 FREE 0.73 ng/dL (0.76-1.46)
[2017-06-02 08:32] LABS: PLATELET ESTIMATE NORMAL
[2017-06-02] MEDS: IPRATROPIUM/ALBUTEROL 0.5-3(2.5)MG/3ML NEB INH SCH ×4 (09:20→21:37)
[2017-06-02] MEDS: ASPIRIN 81MG EC TABLET PO SCH (09:47)
[2017-06-02] MEDS: ENOXAPARIN 40MG/0.4ML SYR SUBCUT SCH ×2 (09:48→21:07)
[2017-06-02] MEDS: FUROSEMIDE 40MG/4ML VIAL IV SCH (09:48)
[2017-06-02] MEDS ORDERED: SILVER SULFADIAZINE 1% CREAM 25GM TOP SCH (11:00)
[2017-06-02] MEDS ORDERED: SODIUM POLYSTYRENE SULFONATE 15 G/60 ML BOT PO NR (11:00)
[2017-06-02] MEDS: VANCOMYCIN 1250MG in DEXTROSE 5% WATER 250ML IV SCH (13:32)
[2017-06-02] MEDS ORDERED: ACETAMINOPHEN 325MG TABLET PO PRN (19:00)
[2017-06-03] VITALS (9 sets, daily range): BP systolic 138–165; BP diastolic 63–85
[2017-06-03] MEDS: MORPHINE SULFATE 2 MG/ML CPJ (NOT FOR IM USE) IV PRN ×2 (03:13→11:20)
[2017-06-03 05:35] LABS: HEMATOCRIT. 40.9 % (42.0-52.0); HEMOGLOBIN. 12.6 g/dL (14.0-18.0); MEAN CORPUSCULAR HEMOGLOBIN 27.2 pg (28.0-32.0); MEAN CORPUSCULAR VOLUME 88.2 fL (80.0-94.0); MEAN PLATELET VOLUME 8.9 fl (7.4-10.4); PLATELET 299 x1000/uL (130-400); RED BLOOD CELL COUNT 4.64 mill/uL (4.7-6.1); RED CELL DISTRIBUTION WIDTH 16.4 % (11.6-14.6)
[2017-06-03 05:58] LABS: CARBON DIOXIDE 29 mEq/L (21-32); CHLORIDE 107 mEq/L (98-107); PHOSPHORUS 3.6 mg/dL (2.5-4.9); VANCOMYCIN TROUGH 13.2 ug/mL (5.0-10.0)
[2017-06-03] MEDS: METHYLPREDNISOLONE SOD SUCC 40 MG/ML VIAL IV SCH (06:35)
[2017-06-03] MEDS: VANCOMYCIN 1250MG in DEXTROSE 5% WATER 250ML IV SCH (06:35)
[2017-06-03 08:16] LABS: NUCLEATED RED BLOOD CELLS 1 /100 WBC
[2017-06-03 08:17] LABS: PLATELET ESTIMATE NORMAL
[2017-06-03] MEDS: IPRATROPIUM/ALBUTEROL 0.5-3(2.5)MG/3ML NEB INH SCH ×2 (08:54→12:40)
[2017-06-03] MEDS ORDERED: SILVER SULFADIAZINE 1% CREAM 25GM TOP SCH (09:00)
[2017-06-03] MEDS: ASPIRIN 81MG EC TABLET PO SCH (09:17)
[2017-06-03] MEDS: FUROSEMIDE 40MG/4ML VIAL IV SCH (09:18)
[2017-06-03] MEDS: ENOXAPARIN 40MG/0.4ML SYR SUBCUT SCH (09:18)
== END 2017-06-03 14:25 | DRG 383 ==
LOC: ER 16:21 → 3WST 06-01 06:18 → EDBEDREQSVC 06-01 10:04 → ENRESERV 06-01 11:35
PROVIDERS: ADMIT Internal Medicine; ATTEND Internal Medicine
PROC: 5A09357 Assistance with Respiratory Ventilation, Less than 24 Consecutive Hours, Continuous Positive Airway Pressure (ICD-10-PCS; principal; 2017-06-01)
DX: L03.116 Cellulitis of left lower limb (principal); J96.22 Acute and chronic respiratory failure with hypercapnia; I50.33 Acute on chronic diastolic (congestive) heart failure; N17.9 Acute kidney failure, unspecified; Z68.42 Body mass index [BMI] 45.0-49.9, adult; I27.20 Pulmonary hypertension, unspecified; J44.1 Chronic obstructive pulmonary disease with (acute) exacerbation; E87.5 Hyperkalemia; E66.01 Morbid (severe) obesity due to excess calories; N18.9 Chronic kidney disease, unspecified; E78.00 Pure hypercholesterolemia, unspecified; I13.0 Hypertensive heart and chronic kidney disease with heart failure and stage 1 through stage 4 chronic kidney disease, or unspecified chronic kidney disease; I25.10 Atherosclerotic heart disease of native coronary artery without angina pectoris; I87.2 Venous insufficiency (chronic) (peripheral); Z79.82 Long term (current) use of aspirin; Z79.899 Other long term (current) drug therapy; Z87.891 Personal history of nicotine dependence; Z95.5 Presence of coronary angioplasty implant and graft; Z88.0 Allergy status to penicillin
CPT/HCPCS: 36415; 36600; 71045; 76770; 80048; 80053; 80061; 80202; 81003; 82375; 82805; 82962; 83605; 83735; 83970; 84100; 84132; 84439; 84443; 85025; 85610; 87040; 87070; 87086; 87205; 93005; 96365; 96375; 97022; 97161; 99285; A4565; J0610; J1650; J1815; J1940; J2270; J2920; J3370; J3490; J7030; J7040; J7050; J7060; J7611; J7620; Q0162

== ENCOUNTER 2018-02-09 16:01 | Inpatient (IN) | payer MEDICAID ==
[~2018-02-09] VITALS: Ht 193 cm; Wt 162.4 kg
[~2018-02-09 16:01] MED LIST changes: -ASPI-1159 PO; -ATROV IH; -BACL-141 PO; -CLON0.1T PO; -FURO-151 PO; -GABA-533 PO; -LISI10TA5 PO; -METO-396 PO; -MULT-1146 PO; -NIFE30TA94 PO; -POTA20TA12 PO; -SULF1TAB48 PO; -TIOT18CA3 IH
[2018-02-09] MEDS ORDERED: METHYLPREDNISOLONE SOD SUCC 125 MG/2 ML VIAL IV STA (16:08)
[2018-02-09] MEDS ORDERED: IPRATROPIUM BROMIDE (0.02%) 0.5MG/2.5ML NEB HHN STA (16:08)
[2018-02-09] MEDS ORDERED: MAGNESIUM 2 G PREMIX 50 ML IV ONE (16:15)
[2018-02-09] MEDS: ALBUTEROL (0.083%) 2.5MG/3ML NEB HHN SCH ×3 (16:25→17:33)
[2018-02-09 16:41] LABS: HEMATOCRIT. 41.9 % (42.0-52.0); MEAN CORPUSCULAR HEMOGLOBIN 26.8 pg (28.0-32.0); MEAN CORPUSCULAR VOLUME 86.8 fL (80.0-94.0); MEAN PLATELET VOLUME 9.1 fl (7.4-10.4); PLATELET 198 x1000/uL (130-400); RED BLOOD CELL COUNT 4.83 mill/uL (4.7-6.1); RED CELL DISTRIBUTION WIDTH 20.8 % (11.6-14.6)
[2018-02-09] MEDS ORDERED: FUROSEMIDE 40MG/4ML VIAL IVP SCH (16:45)
[2018-02-09 16:46] LABS: CHLORIDE 106 mEq/L (98-107)
[2018-02-09] MEDS ORDERED: FUROSEMIDE 40MG/4ML VIAL IVP ONE (17:00)
[2018-02-09] MEDS ORDERED: FUROSEMIDE 100MG/10ML VIAL IV STA (17:03)
[2018-02-09 17:13] LABS: BG BASE EXCESS -1.9 mmol/L (-2.0-2.0); BG CARBOXYHEMOGLOBIN 5.4 % (0.5-1.5); BG DEOXYHEMOGLOBIN 3.1 % (0.0-5.0); BG FRACTION INSPIRED OXYGEN 21; BG METHEMOGLOBIN 0.2 % (0.0-1.5); BG OXYGEN SATURATION 96.7 % (92.0-98.5); BG OXYHEMOGLOBIN 91.3 % (94.0-97.0); BG PCO2 33.9 mmHg (35.0-45.0); BG PH 7.431 (7.350-7.450); BG PO2 92.5 mmHg (75.0-100.0); BG SAMPLE SITE RIGHT BRACHIAL; BG TOTAL HEMOGLOBIN 8.5 g/dL (12.0-18.0); BG VENT MODE ROOM AIR
[2018-02-09] MEDS ORDERED: INSULIN REGULAR (HUMULIN R) 300UNITS/3ML IV ONE (17:15)
[2018-02-09] MEDS ORDERED: DEXTROSE 50% WATER 50ML SYRINGE IV ONE (17:15)
[2018-02-09] MEDS ORDERED: CALCIUM CHLORIDE 1GM/10ML SYR IV ONE (17:15)
[2018-02-09] MEDS ORDERED: SODIUM BICARBONATE 8.4% 1 MEQ/ML 50ML SYR IV ONE (17:15)
[2018-02-09 19:15] LABS: PLATELET ESTIMATE NORMAL
[2018-02-09 21:00] VITALS: BP 152/86
[2018-02-09 21:22] VITALS: BP 152/86
[2018-02-10] VITALS (35 sets, daily range): BP systolic 67–197; BP diastolic 53–96
[2018-02-10] MEDS ORDERED: ACETAMINOPHEN 650MG/20.3ML UDC PO PRN (00:30)
[2018-02-10] MEDS ORDERED: MORPHINE SULFATE 4 MG/ML CPJ (NOT FOR IM USE) IV PRN (00:45)
[2018-02-10] MEDS ORDERED: SODIUM POLYSTYRENE SULFONATE 15 G/60 ML BOT PO NR ×3 (01:00→11:30)
[2018-02-10] MEDS ORDERED: SODIUM BICARBONATE 8.4% 1 MEQ/ML 50ML SYR IV NR ×3 (01:00→17:53)
[2018-02-10] MEDS ORDERED: LEVOFLOXACIN 250MG PREMIX 50 ML IV SCH (01:00)
[2018-02-10] MEDS: FUROSEMIDE 100MG/10ML VIAL IVP SCH ×3 (01:31→18:10)
[2018-02-10 01:52] LABS: INR 1.4; PARTIAL THROMBOPLASTIN TIME 34.4 sec (23.4-31.0); PROTHROMBIN TIME 13.9 sec (9.1-11.1)
[2018-02-10] MEDS: HYDRALAZINE HCL 50MG TABLET PO SCH ×3 (03:20→21:38)
[2018-02-10] MEDS: LEVOFLOXACIN 250MG PREMIX 50 ML IV SCH (03:33)
[2018-02-10] MEDS: ALBUTEROL (0.083%) 2.5MG/3ML NEB HHN SCH ×5 (05:00→20:10)
[2018-02-10] MEDS ORDERED: PIPERACILLIN/TAZOBACTAM 2.25 G in DEXTROSE 5% WATER 50 ML IV SCH (06:00)
[2018-02-10] MEDS ORDERED: HYDRALAZINE 20MG/ML VIAL IV NR (06:15)
[2018-02-10] MEDS: PANTOPRAZOLE 40MG DR TABLET PO SCH ×2 (06:44→21:36)
[2018-02-10 07:00] LABS: CHLORIDE 106 mEq/L (98-107)
[2018-02-10 07:06] LABS: HEMATOCRIT. 42.8 % (42.0-52.0); HEMOGLOBIN. 13.5 g/dL (14.0-18.0); MEAN CORPUSCULAR HEMOGLOBIN 27.4 pg (28.0-32.0); MEAN CORPUSCULAR VOLUME 86.6 fL (80.0-94.0); MEAN PLATELET VOLUME 9.4 fl (7.4-10.4); PLATELET 190 x1000/uL (130-400); RED BLOOD CELL COUNT 4.94 mill/uL (4.7-6.1); RED CELL DISTRIBUTION WIDTH 20.2 % (11.6-14.6)
[2018-02-10 07:11] LABS: LDL CHOLESTEROL 66 mg/dL (5-100)
[2018-02-10 07:12] LABS: HDL CHOLESTEROL 46 mg/dL (40-59)
[2018-02-10] MEDS ORDERED: DEXTROSE 50% WATER 50ML SYRINGE IV NR ×3 (08:30→17:53)
[2018-02-10] MEDS ORDERED: INSULIN REGULAR (HUMULIN R) UD 100 UNITS/ML SYR IV NR (08:45)
[2018-02-10] MEDS: ASPIRIN 81MG TABLET PO SCH (08:58)
[2018-02-10] MEDS: CARVEDILOL 6.25 MG TABLET PO SCH ×2 (08:59→21:00)
[2018-02-10] MEDS ORDERED: AMIODARONE HCL 200 MG TABLET PO SCH (09:00)
[2018-02-10] MEDS ORDERED: ENOXAPARIN 30MG/0.3ML SYR SUBCUT SCH (09:00)
[2018-02-10 09:06] LABS: BG BASE EXCESS -8.3 mmol/L (-2.0-2.0); BG BILEVEL POS AIRWAY PRESSURE 20/5; BG CARBOXYHEMOGLOBIN 1.2 % (0.5-1.5); BG DEOXYHEMOGLOBIN 4.6 % (0.0-5.0); BG FRACTION INSPIRED OXYGEN 40; BG HCO3 ACT 21.5 mmol/L (22.0-26.0); BG METHEMOGLOBIN 0.3 % (0.0-1.5); BG OXYGEN SATURATION 95.3 % (92.0-98.5); BG OXYHEMOGLOBIN 93.9 % (94.0-97.0); BG PCO2 64.2 mmHg (35.0-45.0); BG PH 7.143 (7.350-7.450); BG PO2 87.8 mmHg (75.0-100.0); BG SAMPLE SITE LEFT BRACHIAL; BG TOTAL HEMOGLOBIN 13.8 g/dL (12.0-18.0); BG VENT MODE MASK - BIPAP
[2018-02-10 10:22] LABS: BG BASE EXCESS -3.8 mmol/L (-2.0-2.0); BG BILEVEL POS AIRWAY PRESSURE 20/5; BG CARBOXYHEMOGLOBIN 1.6 % (0.5-1.5); BG DEOXYHEMOGLOBIN 5.1 % (0.0-5.0); BG FRACTION INSPIRED OXYGEN 40; BG HCO3 ACT 25.8 mmol/L (22.0-26.0); BG METHEMOGLOBIN 0.4 % (0.0-1.5); BG OXYGEN SATURATION 94.8 % (92.0-98.5); BG OXYHEMOGLOBIN 92.9 % (94.0-97.0); BG PCO2 68.9 mmHg (35.0-45.0); BG PH 7.192 (7.350-7.450); BG PO2 79.1 mmHg (75.0-100.0); BG SAMPLE SITE LEFT RADIAL; BG VENT MODE MASK - BIPAP
[2018-02-10] MEDS ORDERED: CALCIUM CHLORIDE 1GM/10ML SYR IV NR ×2 (11:30→17:53)
[2018-02-10] MEDS ORDERED: INSULIN REGULAR (HUMULIN R) 300UNITS/3ML IV NR ×2 (11:30→17:52)
[2018-02-10] MEDS ORDERED: IPRATROPIUM/ALBUTEROL 0.5-3(2.5)MG/3ML NEB HHN NR (11:30)
[2018-02-10] MEDS ORDERED: SODIUM BICARBONATE 4% (2.4MEQ) 5ML VIAL IV ONE (11:36)
[2018-02-10] MEDS ORDERED: LIDOCAINE HCL 1% 20ML VIAL (Pyxis) INJ ONE (11:36)
[2018-02-10 13:52] LABS: PLATELET ESTIMATE NORMAL
[2018-02-10 16:40] LABS: BG BASE EXCESS -0.2 mmol/L (-2.0-2.0); BG BILEVEL POS AIRWAY PRESSURE 20/5; BG CARBOXYHEMOGLOBIN 1.6 % (0.5-1.5); BG DEOXYHEMOGLOBIN 3.7 % (0.0-5.0); BG FRACTION INSPIRED OXYGEN 40; BG HCO3 ACT 29.2 mmol/L (22.0-26.0); BG METHEMOGLOBIN 0.3 % (0.0-1.5); BG OXYGEN SATURATION 96.2 % (92.0-98.5); BG OXYHEMOGLOBIN 94.4 % (94.0-97.0); BG PH 7.238 (7.350-7.450); BG SAMPLE SITE RIGHT RADIAL; BG TOTAL HEMOGLOBIN 14.7 g/dL (12.0-18.0); BG VENT MODE MASK - BIPAP; BG VENT RATE 18 set
[2018-02-11] VITALS (41 sets, daily range): BP systolic 96–147; BP diastolic 36–98
[2018-02-11] MEDS: ALBUTEROL (0.083%) 2.5MG/3ML NEB HHN SCH ×6 (00:35→20:15)
[2018-02-11 05:53] LABS: HEMATOCRIT. 40.8 % (42.0-52.0); HEMOGLOBIN. 12.8 g/dL (14.0-18.0); MEAN CORPUSCULAR HEMOGLOBIN 26.8 pg (28.0-32.0); MEAN CORPUSCULAR VOLUME 85.3 fL (80.0-94.0); PLATELET 209 x1000/uL (130-400); RED BLOOD CELL COUNT 4.78 mill/uL (4.7-6.1); RED CELL DISTRIBUTION WIDTH 19.8 % (11.6-14.6)
[2018-02-11] MEDS: HYDRALAZINE HCL 50MG TABLET PO SCH (05:57)
[2018-02-11] MEDS: PANTOPRAZOLE 40MG DR TABLET PO SCH ×2 (07:50→21:04)
[2018-02-11 08:04] LABS: BG BASE EXCESS 3.7 mmol/L (-2.0-2.0); BG BILEVEL POS AIRWAY PRESSURE 20/5; BG CARBOXYHEMOGLOBIN 1.7 % (0.5-1.5); BG DEOXYHEMOGLOBIN 4.6 % (0.0-5.0); BG HCO3 ACT 31.4 mmol/L (22.0-26.0); BG METHEMOGLOBIN 0.3 % (0.0-1.5); BG OXYGEN SATURATION 95.3 % (92.0-98.5); BG OXYHEMOGLOBIN 93.4 % (94.0-97.0); BG PCO2 61.8 mmHg (35.0-45.0); BG PH 7.324 (7.350-7.450); BG PO2 78.5 mmHg (75.0-100.0); BG SAMPLE SITE RIGHT RADIAL; BG TOTAL HEMOGLOBIN 13.6 g/dL (12.0-18.0); BG VENT MODE MASK - BIPAP; BG VENT RATE 18 set
[2018-02-11] MEDS: ASPIRIN 81MG TABLET PO SCH (12:34)
[2018-02-11] MEDS: ENOXAPARIN 40MG/0.4ML SYR SUBCUT SCH (12:35)
[2018-02-11] MEDS: FUROSEMIDE 100MG/10ML VIAL IVP SCH ×2 (12:35→21:04)
[2018-02-11] MEDS ORDERED: HYDRALAZINE 20MG/ML VIAL IV PRN (13:15)
[2018-02-11] MEDS ORDERED: ONDANSETRON 4MG ODT PO PRN (13:15)
[2018-02-11] MEDS ORDERED: DOCUSATE SODIUM 100MG CAPSULE PO PRN (13:15)
[2018-02-11] MEDS ORDERED: MAGNESIUM/ALUMINUM HYDROXIDE/SIMETHICONE 30ML UDC PO PRN (13:15)
[2018-02-11 13:44] LABS: PLATELET ESTIMATE NORMAL
[2018-02-11] MEDS: SILVER SULFADIAZINE 1% CREAM 50GM TOP SCH (14:45)
[2018-02-11 16:21] LABS: CLARITY URINE CLEAR (CLEAR); COLOR URINE YELLOW (YELLOW); KETONES URINE NEGATIVE (NEGATIVE); LEUKOCYTE ESTERASE URINE TRACE (NEGATIVE); NITRITE URINE NEGATIVE (NEGATIVE); OCCULT BLOOD URINE 3+ (NEGATIVE); PROTEIN URINE NEGATIVE (NEGATIVE); SPECIFIC GRAVITY URINE 1.006 (1.005-1.030); UROBILINOGEN URINE 0.2 E.U./dL (0.2-1.0)
[2018-02-12] VITALS (37 sets, daily range): BP systolic 113–170; BP diastolic 44–91
[2018-02-12] MEDS: LEVOFLOXACIN 250MG PREMIX 50 ML IV SCH (02:57)
[2018-02-12] MEDS: ALBUTEROL (0.083%) 2.5MG/3ML NEB HHN SCH ×5 (05:45→21:42)
[2018-02-12 06:49] LABS: HEMATOCRIT 41.6 % (42.0-52.0); HEMOGLOBIN 13.1 g/dL (14.0-18.0); MEAN CORPUSCULAR HEMOGLOBIN 26.9 pg (28.0-32.0); MEAN CORPUSCULAR VOLUME 85.2 fL (80.0-94.0); PLATELET 209 x1000/uL (130-400); RED BLOOD CELL COUNT 4.88 mill/uL (4.7-6.1); RED CELL DISTRIBUTION WIDTH 19.9 % (11.6-14.6)
[2018-02-12 07:04] LABS: PHOSPHORUS 2.7 mg/dL (2.5-4.9)
[2018-02-12 08:17] LABS: BG BASE EXCESS 4.3 mmol/L (-2.0-2.0); BG DEOXYHEMOGLOBIN 4.6 % (0.0-5.0); BG FRACTION INSPIRED OXYGEN 32; BG HCO3 ACT 31.3 mmol/L (22.0-26.0); BG METHEMOGLOBIN 0.2 % (0.0-1.5); BG OXYGEN SATURATION 95.3 % (92.0-98.5); BG OXYHEMOGLOBIN 93.2 % (94.0-97.0); BG PH 7.358 (7.350-7.450); BG PO2 76.6 mmHg (75.0-100.0); BG SAMPLE SITE RIGHT RADIAL; BG TOTAL HEMOGLOBIN 14.2 g/dL (12.0-18.0); BG VENT MODE NASAL CANNULA
[2018-02-12] MEDS: SILVER SULFADIAZINE 1% CREAM 50GM TOP SCH (09:00)
[2018-02-12] MEDS: FUROSEMIDE 100MG/10ML VIAL IVP SCH ×2 (09:34→20:46)
[2018-02-12] MEDS: ASPIRIN 81MG TABLET PO SCH (09:34)
[2018-02-12] MEDS: PANTOPRAZOLE 40MG DR TABLET PO SCH ×2 (09:34→20:47)
[2018-02-12] MEDS: ENOXAPARIN 40MG/0.4ML SYR SUBCUT SCH (09:35)
[2018-02-12] MEDS: HYDRALAZINE HCL 50MG TABLET PO SCH (21:02)
[2018-02-13] VITALS: BP 130/62
[2018-02-13] MEDS: ALBUTEROL (0.083%) 2.5MG/3ML NEB HHN SCH ×6 (00:19→21:11)
[2018-02-13 04:00] VITALS: BP 127/72
[2018-02-13] MEDS: HYDRALAZINE HCL 50MG TABLET PO SCH ×3 (06:38→20:29)
[2018-02-13] MEDS: PANTOPRAZOLE 40MG DR TABLET PO SCH (06:38)
[2018-02-13 06:54] LABS: HEMATOCRIT 43.7 % (42.0-52.0); HEMOGLOBIN 14.3 g/dL (14.0-18.0); MEAN CORPUSCULAR HEMOGLOBIN 27.4 pg (28.0-32.0); MEAN CORPUSCULAR VOLUME 83.7 fL (80.0-94.0); PLATELET 221 x1000/uL (130-400); RED BLOOD CELL COUNT 5.22 mill/uL (4.7-6.1); RED CELL DISTRIBUTION WIDTH 19.3 % (11.6-14.6)
[2018-02-13 08:00] VITALS: BP 164/78
[2018-02-13] MEDS: SILVER SULFADIAZINE 1% CREAM 50GM TOP SCH (08:20)
[2018-02-13] MEDS: FUROSEMIDE 100MG/10ML VIAL IVP SCH ×2 (08:20→20:26)
[2018-02-13] MEDS: ENOXAPARIN 40MG/0.4ML SYR SUBCUT SCH (08:20)
[2018-02-13] MEDS: ASPIRIN 81MG TABLET PO SCH (08:20)
[2018-02-13 12:00] VITALS: BP 158/76
[2018-02-13 16:00] VITALS: BP 138/78
[2018-02-13 20:00] VITALS: BP 146/67
[2018-02-14] VITALS: BP 136/62
[2018-02-14] MEDS: ALBUTEROL (0.083%) 2.5MG/3ML NEB HHN SCH ×3 (00:10→08:00)
[2018-02-14] MEDS: LEVOFLOXACIN 250MG PREMIX 50 ML IV SCH (03:00)
[2018-02-14 04:00] VITALS: BP 149/71
[2018-02-14] MEDS: HYDRALAZINE HCL 50MG TABLET PO SCH (06:31)
[2018-02-14 08:00] VITALS: BP 150/67
[2018-02-14] MEDS ORDERED: FAMOTIDINE 20MG TABLET PO SCH (09:00)
[2018-02-14] MEDS: ENOXAPARIN 40MG/0.4ML SYR SUBCUT SCH (09:43)
[2018-02-14] MEDS: ASPIRIN 81MG TABLET PO SCH (09:43)
[2018-02-14] MEDS: FUROSEMIDE 100MG/10ML VIAL IVP SCH (09:44)
[2018-02-14] MEDS: SILVER SULFADIAZINE 1% CREAM 50GM TOP SCH (09:44)
[2018-02-14 12:00] VITALS: BP 125/67
[2018-02-14 15:05] VITALS: BP 125/67
[2018-02-14 16:00] VITALS: BP 134/72
[2018-02-14] MEDS ORDERED: LEVOFLOXACIN 500MG PREMIX 100 ML IV SCH (21:00)
== END 2018-02-14 20:45 | DRG 469 ==
LOC: ER 16:17 → 3WST 17:37 → EDBEDREQ 17:40 → EDBEDREQSVC 17:40 → ENRESERV 19:25 → CVICU 02-10 10:43 → 6WST 02-12 22:30
PROVIDERS: ADMIT Internal Medicine; ATTEND Internal Medicine
PROC: 5A09357 Assistance with Respiratory Ventilation, Less than 24 Consecutive Hours, Continuous Positive Airway Pressure (ICD-10-PCS; 2018-02-09)
PROC: 02HV33Z Insertion of Infusion Device into Superior Vena Cava, Percutaneous Approach (ICD-10-PCS; principal; 2018-02-10)
PROC: B548ZZA Ultrasonography of Superior Vena Cava, Guidance (ICD-10-PCS; 2018-02-10)
PROC: 5A1D70Z Performance of Urinary Filtration, Intermittent, Less than 6 Hours Per Day (ICD-10-PCS; 2018-02-10)
PROC: 5A1D70Z Performance of Urinary Filtration, Intermittent, Less than 6 Hours Per Day (ICD-10-PCS; 2018-02-11)
PROC: 5A09357 Assistance with Respiratory Ventilation, Less than 24 Consecutive Hours, Continuous Positive Airway Pressure (ICD-10-PCS; 2018-02-11)
DX: N17.0 Acute kidney failure with tubular necrosis (principal); J96.00 Acute respiratory failure, unspecified whether with hypoxia or hypercapnia; I50.43 Acute on chronic combined systolic (congestive) and diastolic (congestive) heart failure; G93.41 Metabolic encephalopathy; L89.159 Pressure ulcer of sacral region, unspecified stage; E87.4 Mixed disorder of acid-base balance; D68.9 Coagulation defect, unspecified; E11.22 Type 2 diabetes mellitus with diabetic chronic kidney disease; I13.0 Hypertensive heart and chronic kidney disease with heart failure and stage 1 through stage 4 chronic kidney disease, or unspecified chronic kidney disease; E66.01 Morbid (severe) obesity due to excess calories; N18.9 Chronic kidney disease, unspecified; J44.9 Chronic obstructive pulmonary disease, unspecified; E87.5 Hyperkalemia; B07.9 Viral wart, unspecified; B35.9 Dermatophytosis, unspecified; B35.1 Tinea unguium; G47.33 Obstructive sleep apnea (adult) (pediatric); I25.10 Atherosclerotic heart disease of native coronary artery without angina pectoris; I48.91 Unspecified atrial fibrillation; L60.3 Nail dystrophy; R91.8 Other nonspecific abnormal finding of lung field; I87.2 Venous insufficiency (chronic) (peripheral); Z90.5 Acquired absence of kidney; Z88.0 Allergy status to penicillin; Z68.41 Body mass index [BMI] 40.0-44.9, adult; Z79.899 Other long term (current) drug therapy
CPT/HCPCS: 36415; 36556; 36600; 71045; 76770; 76937; 80048; 80061; 82375; 82805; 82962; 83735; 83880; 84100; 84443; 84484; 85007; 85027; 93005; 93306; 93970; 94640; 94660; 96365; 96375; 97162; 97530; 99291; A6261; C1752; J0360; J1642; J1650; J1815; J1940; J1956; J2270; J2930; J3475; J3490; J7030; J7050; J7611; A4315

== ENCOUNTER 2018-04-18 17:11 | Inpatient (IN) | payer MEDICAID ==
[~2018-04-18] VITALS: Ht 193 cm; Wt 132.0 kg
[2018-04-18] MEDS ORDERED: VANCOMYCIN 1 G PREMIX 200 ML IV ONE (18:15)
[2018-04-18] MEDS ORDERED: CLINDAMYCIN 600 MG in DEXTROSE 5% WATER 50 ML IV ONE (18:15)
[2018-04-18] MEDS ORDERED: ALBUTEROL (0.083%) 2.5MG/3ML NEB HHN ONE (18:30)
[2018-04-18 19:22] LABS: BASOPHILS % 0.7 % (0.0-2.0); EOSINOPHILS % 1.9 % (0.0-5.0); HEMATOCRIT. 35.5 % (42.0-52.0); HEMOGLOBIN. 10.9 g/dL (14.0-18.0); LYMPHOCYTES % 9.9 % (20.0-50.0); MEAN CORPUSCULAR HEMOGLOBIN 28.2 pg (28.0-32.0); MEAN CORPUSCULAR VOLUME 91.7 fL (80.0-94.0); MEAN PLATELET VOLUME 8.6 fl (7.4-10.4); MONOCYTES % 12.3 % (2.0-8.0); NEUTROPHILS % 75.2 % (40.0-76.0); PLATELET 232 x1000/uL (130-400); RED BLOOD CELL COUNT 3.87 mill/uL (4.7-6.1); RED CELL DISTRIBUTION WIDTH 17.8 % (11.6-14.6)
[2018-04-18 19:25] LABS: CHLORIDE 113 mEq/L (98-107)
[2018-04-18 19:32] LABS: INR 1.1; PROTHROMBIN TIME 10.6 sec (9.1-11.1)
[2018-04-18 20:14] LABS: CLARITY URINE CLEAR (CLEAR); COLOR URINE YELLOW (YELLOW); KETONES URINE NEGATIVE (NEGATIVE); LEUKOCYTE ESTERASE URINE NEGATIVE (NEGATIVE); NITRITE URINE NEGATIVE (NEGATIVE); OCCULT BLOOD URINE NEGATIVE (NEGATIVE); PROTEIN URINE NEGATIVE (NEGATIVE); SPECIFIC GRAVITY URINE 1.016 (1.005-1.030); UROBILINOGEN URINE 0.2 E.U./dL (0.2-1.0)
[2018-04-18] MEDS ORDERED: SODIUM BICARBONATE 8.4% 1 MEQ/ML 50ML SYR IV ONE (20:45)
[2018-04-18] MEDS ORDERED: CALCIUM GLUCONATE 100MG/ML 10ML VIAL IV ONE (20:45)
[2018-04-18] MEDS ORDERED: SODIUM POLYSTYRENE SULFONATE 15 G/60 ML BOT PO ONE (20:45)
[2018-04-18] MEDS ORDERED: FUROSEMIDE 20MG/2ML VIAL IVP SCH (21:15)
[2018-04-19] VITALS (7 sets, daily range): BP systolic 119–164; BP diastolic 52–78
[2018-04-19] MEDS ORDERED: ACETAMINOPHEN 325MG TABLET PO PRN (01:00)
[2018-04-19] MEDS ORDERED: DEXTROSE 50% WATER 50ML SYRINGE IV PRN (01:15)
[2018-04-19] MEDS: MORPHINE SULFATE 10MG/5ML ORAL SOLN UDC PO PRN ×3 (01:30→20:30)
[2018-04-19] MEDS: METOPROLOL TARTRATE 25MG TABLET PO SCH ×3 (01:31→20:31)
[2018-04-19] MEDS: GABAPENTIN 100MG CAPSULE PO SCH ×3 (05:47→21:18)
[2018-04-19] MEDS: CLINDAMYCIN 600 MG in DEXTROSE 5% WATER 50 ML IV SCH ×3 (05:47→18:07)
[2018-04-19 05:50] LABS: CHLORIDE 109 mEq/L (98-107)
[2018-04-19] MEDS ORDERED: CLINDAMYCIN 600 MG in DEXTROSE 5% WATER 50 ML IV SCH (06:00)
[2018-04-19 06:27] LABS: HEMATOCRIT. 32.7 % (42.0-52.0); HEMOGLOBIN. 10.3 g/dL (14.0-18.0); MEAN CORPUSCULAR HEMOGLOBIN 28.6 pg (28.0-32.0); MEAN CORPUSCULAR VOLUME 90.9 fL (80.0-94.0); MEAN PLATELET VOLUME 8.6 fl (7.4-10.4); PLATELET 222 x1000/uL (130-400); RED BLOOD CELL COUNT 3.59 mill/uL (4.7-6.1); RED CELL DISTRIBUTION WIDTH 17.5 % (11.6-14.6)
[2018-04-19] MEDS: TRAMADOL 50MG TABLET PO PRN (06:32)
[2018-04-19] MEDS ORDERED: BLOOD SUGAR DIAGNOSTIC STRIP TEST SCH (07:10)
[2018-04-19] MEDS ORDERED: INSULIN LISPRO 100 UNITS/ML SUBCUT SCH (07:40)
[2018-04-19] MEDS: AMIODARONE HCL 200 MG TABLET PO SCH (08:14)
[2018-04-19] MEDS: ENOXAPARIN 40MG/0.4ML SYR SUBCUT SCH ×2 (08:15→20:34)
[2018-04-19] MEDS ORDERED: MEDICATION NOT ON FORMULARY EA (Metoprolol Tartrate 25 MG) PO SCH (09:00)
[2018-04-19 10:51] LABS: PLATELET ESTIMATE NORMAL
[2018-04-19] MEDS ORDERED: SODIUM POLYSTYRENE SULFONATE 15 G/60 ML BOT PO NR (11:30)
[2018-04-19] MEDS: FUROSEMIDE 40MG/4ML VIAL IVP SCH (20:30)
[2018-04-19] MEDS: LEVOFLOXACIN 500MG PREMIX 100 ML IV SCH (21:18)
[2018-04-19] MEDS: IPRATROPIUM/ALBUTEROL 0.5-3(2.5)MG/3ML NEB HHN SCH (21:28)
[2018-04-20] VITALS (11 sets, daily range): BP systolic 113–161; BP diastolic 50–87
[2018-04-20] MEDS: IPRATROPIUM/ALBUTEROL 0.5-3(2.5)MG/3ML NEB HHN SCH ×6 (00:54→21:00)
[2018-04-20] MEDS: HYDROCODONE/ACETAMINOPHEN 5/325MG TABLET PO PRN ×2 (01:29→22:26)
[2018-04-20] MEDS: GABAPENTIN 100MG CAPSULE PO SCH ×3 (06:07→22:27)
[2018-04-20 07:38] LABS: HEMATOCRIT 32.1 % (42.0-52.0); HEMOGLOBIN 9.9 g/dL (14.0-18.0); MEAN CORPUSCULAR HEMOGLOBIN 28.1 pg (28.0-32.0); MEAN CORPUSCULAR VOLUME 91.4 fL (80.0-94.0); PLATELET 172 x1000/uL (130-400); RED BLOOD CELL COUNT 3.51 mill/uL (4.7-6.1); RED CELL DISTRIBUTION WIDTH 17.3 % (11.6-14.6)
[2018-04-20] MEDS: METOPROLOL TARTRATE 25MG TABLET PO SCH ×2 (08:25→22:27)
[2018-04-20] MEDS: ENOXAPARIN 40MG/0.4ML SYR SUBCUT SCH ×2 (08:25→22:26)
[2018-04-20] MEDS: FUROSEMIDE 40MG/4ML VIAL IVP SCH (08:25)
[2018-04-20] MEDS: AMIODARONE HCL 200 MG TABLET PO SCH (08:26)
[2018-04-20 08:49] LABS: BG BASE EXCESS 0.5 mmol/L (-2.0-2.0); BG CARBOXYHEMOGLOBIN 1.9 % (0.5-1.5); BG DEOXYHEMOGLOBIN 5.1 % (0.0-5.0); BG FRACTION INSPIRED OXYGEN 28; BG HCO3 ACT 29.3 mmol/L (22.0-26.0); BG METHEMOGLOBIN 0.2 % (0.0-1.5); BG OXYGEN SATURATION 94.8 % (92.0-98.5); BG OXYHEMOGLOBIN 92.8 % (94.0-97.0); BG PCO2 70.9 mmHg (35.0-45.0); BG PH 7.234 (7.350-7.450); BG PO2 78.9 mmHg (75.0-100.0); BG SAMPLE SITE RIGHT RADIAL; BG VENT MODE NASAL CANNULA
[2018-04-20] MEDS ORDERED: SODIUM BICARBONATE 8.4% 1 MEQ/ML 50ML SYR IV NR ×2 (09:15)
[2018-04-20] MEDS: MORPHINE SULFATE 10MG/5ML ORAL SOLN UDC PO PRN (09:59)
[2018-04-20 11:58] LABS: BG BASE EXCESS 2.4 mmol/L (-2.0-2.0); BG CARBOXYHEMOGLOBIN 0.8 % (0.5-1.5); BG DEOXYHEMOGLOBIN 4.8 % (0.0-5.0); BG HCO3 ACT 30.5 mmol/L (22.0-26.0); BG METHEMOGLOBIN 0.1 % (0.0-1.5); BG OXYGEN SATURATION 95.2 % (92.0-98.5); BG OXYHEMOGLOBIN 94.3 % (94.0-97.0); BG PCO2 67.2 mmHg (35.0-45.0); BG PH 7.275 (7.350-7.450); BG PO2 82.1 mmHg (75.0-100.0); BG SAMPLE SITE RIGHT RADIAL; BG TOTAL HEMOGLOBIN 10.6 g/dL (12.0-18.0); BG VENT MODE NASAL CANNULA
[2018-04-20] MEDS: SODIUM CHLORIDE 0.9% 1,000 ML IV SCH ×2 (13:08→20:30)
[2018-04-20 16:13] LABS: BG BASE EXCESS 5.6 mmol/L (-2.0-2.0); BG BILEVEL POS AIRWAY PRESSURE 15/5; BG CARBOXYHEMOGLOBIN 1.2 % (0.5-1.5); BG DEOXYHEMOGLOBIN 4.1 % (0.0-5.0); BG FRACTION INSPIRED OXYGEN 30; BG HCO3 ACT 33.9 mmol/L (22.0-26.0); BG METHEMOGLOBIN 0.2 % (0.0-1.5); BG OXYGEN SATURATION 95.8 % (92.0-98.5); BG OXYHEMOGLOBIN 94.5 % (94.0-97.0); BG PCO2 72.8 mmHg (35.0-45.0); BG PH 7.286 (7.350-7.450); BG PO2 83.4 mmHg (75.0-100.0); BG SAMPLE SITE RIGHT RADIAL; BG TOTAL HEMOGLOBIN 10.5 g/dL (12.0-18.0); BG VENT MODE MASK - BIPAP; BG VENT RATE 16 set
[2018-04-20] MEDS: METHYLPREDNISOLONE SOD SUCC 40 MG/ML VIAL IV SCH (17:10)
[2018-04-20 20:46] LABS: BG BASE EXCESS 4.3 mmol/L (-2.0-2.0); BG BILEVEL POS AIRWAY PRESSURE 18/5; BG CARBOXYHEMOGLOBIN 1.2 % (0.5-1.5); BG DEOXYHEMOGLOBIN 9.5 % (0.0-5.0); BG FRACTION INSPIRED OXYGEN 25; BG HCO3 ACT 31.3 mmol/L (22.0-26.0); BG METHEMOGLOBIN 0.2 % (0.0-1.5); BG OXYGEN SATURATION 90.4 % (92.0-98.5); BG OXYHEMOGLOBIN 89.1 % (94.0-97.0); BG PCO2 58.8 mmHg (35.0-45.0); BG PH 7.344 (7.350-7.450); BG PO2 57.7 mmHg (75.0-100.0); BG PRESSURE SUPPORT 13; BG SAMPLE SITE RIGHT RADIAL; BG TOTAL HEMOGLOBIN 11.3 g/dL (12.0-18.0); BG VENT MODE MASK - BIPAP; BG VENT RATE 20 set
[2018-04-20] MEDS: BUDESONIDE 0.5MG/2ML NEB HHN SCH (21:01)
[2018-04-21] MEDS: LEVOFLOXACIN 500MG PREMIX 100 ML IV SCH
[2018-04-21 00:01] VITALS: BP 148/52
[2018-04-21] MEDS: IPRATROPIUM/ALBUTEROL 0.5-3(2.5)MG/3ML NEB HHN SCH ×6 (00:37→20:06)
[2018-04-21 01:01] VITALS: BP 144/67
[2018-04-21] MEDS: METHYLPREDNISOLONE SOD SUCC 40 MG/ML VIAL IV SCH ×3 (01:28→17:33)
[2018-04-21] MEDS: TRAMADOL 50MG TABLET PO PRN (01:28)
[2018-04-21] MEDS: MORPHINE SULFATE 10MG/5ML ORAL SOLN UDC PO PRN (03:06)
[2018-04-21] MEDS: GABAPENTIN 100MG CAPSULE PO SCH ×3 (06:43→21:48)
[2018-04-21] MEDS: FUROSEMIDE 40MG/4ML VIAL IVP SCH ×2 (06:43→17:33)
[2018-04-21] MEDS: HYDROCODONE/ACETAMINOPHEN 5/325MG TABLET PO PRN ×2 (06:44→20:28)
[2018-04-21] MEDS: BUDESONIDE 0.5MG/2ML NEB HHN SCH ×2 (08:01→20:07)
[2018-04-21] MEDS ORDERED: MAG-55 MT (08:10)
[2018-04-21] MEDS ORDERED: MAGNESIUM/ALUMINUM HYDROXIDE/SIMETHICONE 30ML UDC PO PRN (08:15)
[2018-04-21] MEDS: AMIODARONE HCL 200 MG TABLET PO SCH (08:59)
[2018-04-21] MEDS: DIPHENHYDRAMINE 50MG/ML VIAL IV PRN ×2 (09:00→17:33)
[2018-04-21] MEDS: METOPROLOL TARTRATE 25MG TABLET PO SCH ×2 (09:01→21:48)
[2018-04-21 09:12] LABS: BG BASE EXCESS -5.9 mmol/L (-2.0-2.0); BG CARBOXYHEMOGLOBIN 0.1 % (0.5-1.5); BG DEOXYHEMOGLOBIN 8.6 % (0.0-5.0); BG FRACTION INSPIRED OXYGEN 32; BG METHEMOGLOBIN 0.3 % (0.0-1.5); BG OXYGEN SATURATION 91.4 % (92.0-98.5); BG PCO2 41.1 mmHg (35.0-45.0); BG PH 7.305 (7.350-7.450); BG PO2 70.2 mmHg (75.0-100.0); BG SAMPLE SITE RIGHT RADIAL; BG TOTAL HEMOGLOBIN 10.8 g/dL (12.0-18.0); BG VENT MODE NASAL CANNULA
[2018-04-21] MEDS: ENOXAPARIN 40MG/0.4ML SYR SUBCUT SCH ×2 (09:28→21:00)
[2018-04-21] MEDS ORDERED: LIDOCAINE HCL 1% 20ML VIAL (Pyxis) INJ ONE (09:55)
[2018-04-21 10:13] LABS: HEMOGLOBIN 10.3 g/dL (14.0-18.0); MEAN CORPUSCULAR HEMOGLOBIN 28.3 pg (28.0-32.0); MEAN CORPUSCULAR VOLUME 90.7 fL (80.0-94.0); PLATELET 164 x1000/uL (130-400); RED BLOOD CELL COUNT 3.64 mill/uL (4.7-6.1)
[2018-04-21 11:12] LABS: CHLORIDE 105 mEq/L (98-107)
[2018-04-21] MEDS ORDERED: IOHEXOL-350 100 ML BOTTLE ONE (16:16)
[2018-04-21 17:40] LABS: BG BASE EXCESS 4.3 mmol/L (-2.0-2.0); BG BILEVEL POS AIRWAY PRESSURE 18/5; BG CARBOXYHEMOGLOBIN 0.8 % (0.5-1.5); BG DEOXYHEMOGLOBIN 2.4 % (0.0-5.0); BG FRACTION INSPIRED OXYGEN 40; BG METHEMOGLOBIN 0.3 % (0.0-1.5); BG OXYGEN SATURATION 97.6 % (92.0-98.5); BG OXYHEMOGLOBIN 96.5 % (94.0-97.0); BG PCO2 57.2 mmHg (35.0-45.0); BG PH 7.352 (7.350-7.450); BG PO2 104.3 mmHg (75.0-100.0); BG SAMPLE SITE RIGHT RADIAL; BG TOTAL HEMOGLOBIN 10.9 g/dL (12.0-18.0); BG VENT MODE MASK - BIPAP; BG VENT RATE 20 set
[2018-04-21 20:00] VITALS: BP 174/98
[2018-04-21] MEDS: LEVOFLOXACIN 500MG TABLET PO SCH (21:48)
[2018-04-21 22:00] VITALS: BP 149/84
[2018-04-22] VITALS (12 sets, daily range): BP systolic 128–187; BP diastolic 62–99
[2018-04-22] MEDS: IPRATROPIUM/ALBUTEROL 0.5-3(2.5)MG/3ML NEB HHN SCH ×7 (00:22→23:43)
[2018-04-22] MEDS: METHYLPREDNISOLONE SOD SUCC 40 MG/ML VIAL IV SCH ×3 (02:30→20:21)
[2018-04-22] MEDS: GABAPENTIN 100MG CAPSULE PO SCH ×3 (05:28→21:32)
[2018-04-22 05:57] LABS: HEMATOCRIT. 33.4 % (42.0-52.0); HEMOGLOBIN. 10.6 g/dL (14.0-18.0); MEAN CORPUSCULAR HEMOGLOBIN 28.5 pg (28.0-32.0); MEAN CORPUSCULAR VOLUME 90.1 fL (80.0-94.0); PLATELET 189 x1000/uL (130-400); RED BLOOD CELL COUNT 3.71 mill/uL (4.7-6.1); RED CELL DISTRIBUTION WIDTH 16.5 % (11.6-14.6)
[2018-04-22 06:15] LABS: CHLORIDE 104 mEq/L (98-107)
[2018-04-22 06:22] LABS: PHOSPHORUS 3.6 mg/dL (2.5-4.9)
[2018-04-22] MEDS: FUROSEMIDE 40MG/4ML VIAL IVP SCH ×2 (08:23→17:27)
[2018-04-22] MEDS: ENOXAPARIN 40MG/0.4ML SYR SUBCUT SCH ×2 (08:38→20:21)
[2018-04-22] MEDS: METOPROLOL TARTRATE 25MG TABLET PO SCH ×2 (09:00→20:21)
[2018-04-22] MEDS: AMIODARONE HCL 200 MG TABLET PO SCH (09:00)
[2018-04-22] MEDS: BUDESONIDE 0.5MG/2ML NEB HHN SCH ×2 (10:00→19:52)
[2018-04-22 11:18] LABS: PLATELET ESTIMATE NORMAL
[2018-04-22] MEDS ORDERED: MORPHINE SULFATE 10MG/5ML ORAL SOLN UDC PO PRN (13:31)
[2018-04-22] MEDS: HYDROCODONE/ACETAMINOPHEN 5/325MG TABLET PO PRN ×2 (14:07→21:34)
[2018-04-22 15:34] LABS: BG BASE EXCESS 6.2 mmol/L (-2.0-2.0); BG CARBOXYHEMOGLOBIN 0.2 % (0.5-1.5); BG DEOXYHEMOGLOBIN 6.8 % (0.0-5.0); BG HCO3 ACT 33.5 mmol/L (22.0-26.0); BG METHEMOGLOBIN 0.1 % (0.0-1.5); BG OXYGEN SATURATION 93.2 % (92.0-98.5); BG OXYHEMOGLOBIN 92.9 % (94.0-97.0); BG PCO2 63.4 mmHg (35.0-45.0); BG PH 7.341 (7.350-7.450); BG PO2 68.5 mmHg (75.0-100.0); BG SAMPLE SITE RIGHT RADIAL; BG TOTAL HEMOGLOBIN 11.3 g/dL (12.0-18.0); BG VENT MODE NASAL CANNULA
[2018-04-22] MEDS: SILVER SULFADIAZINE 1% CREAM 25GM TOP SCH (17:27)
[2018-04-22] MEDS: LEVOFLOXACIN 500MG TABLET PO SCH (20:21)
[2018-04-23] VITALS (11 sets, daily range): BP systolic 155–180; BP diastolic 65–96
[2018-04-23] MEDS: IPRATROPIUM/ALBUTEROL 0.5-3(2.5)MG/3ML NEB HHN SCH ×4 (04:01→17:01)
[2018-04-23] MEDS: HYDROCODONE/ACETAMINOPHEN 5/325MG TABLET PO PRN (05:27)
[2018-04-23] MEDS: GABAPENTIN 100MG CAPSULE PO SCH ×2 (06:30→14:02)
[2018-04-23 06:58] LABS: HEMATOCRIT 32.9 % (42.0-52.0); HEMOGLOBIN 10.4 g/dL (14.0-18.0); MEAN CORPUSCULAR HEMOGLOBIN 28.6 pg (28.0-32.0); MEAN CORPUSCULAR VOLUME 90.6 fL (80.0-94.0); PLATELET 190 x1000/uL (130-400); RED BLOOD CELL COUNT 3.63 mill/uL (4.7-6.1); RED CELL DISTRIBUTION WIDTH 16.6 % (11.6-14.6)
[2018-04-23] MEDS: BUDESONIDE 0.5MG/2ML NEB HHN SCH (08:00)
[2018-04-23 08:33] LABS: BG BASE EXCESS 6.2 mmol/L (-2.0-2.0); BG CARBOXYHEMOGLOBIN 0.7 % (0.5-1.5); BG DEOXYHEMOGLOBIN 4.7 % (0.0-5.0); BG FRACTION INSPIRED OXYGEN 28; BG HCO3 ACT 33.1 mmol/L (22.0-26.0); BG METHEMOGLOBIN 0.3 % (0.0-1.5); BG OXYGEN SATURATION 95.3 % (92.0-98.5); BG OXYHEMOGLOBIN 94.3 % (94.0-97.0); BG PCO2 59.7 mmHg (35.0-45.0); BG PH 7.362 (7.350-7.450); BG PO2 81.1 mmHg (75.0-100.0); BG SAMPLE SITE RIGHT RADIAL; BG TOTAL HEMOGLOBIN 11.3 g/dL (12.0-18.0); BG VENT MODE NASAL CANNULA
[2018-04-23 09:16] LABS: CHLORIDE 102 mEq/L (98-107)
[2018-04-23] MEDS: AMIODARONE HCL 200 MG TABLET PO SCH (09:58)
[2018-04-23] MEDS: FUROSEMIDE 40MG/4ML VIAL IVP SCH (09:58)
[2018-04-23] MEDS: METHYLPREDNISOLONE SOD SUCC 40 MG/ML VIAL IV SCH (09:58)
[2018-04-23] MEDS: METOPROLOL TARTRATE 25MG TABLET PO SCH (09:58)
[2018-04-23] MEDS: SILVER SULFADIAZINE 1% CREAM 25GM TOP SCH (10:00)
[2018-04-23] MEDS: ENOXAPARIN 40MG/0.4ML SYR SUBCUT SCH (10:01)
[2018-04-23] MEDS ORDERED: CLONIDINE 0.1MG TABLET PO SCH (10:30)
[2018-04-23] MEDS ORDERED: AMLODIPINE 5MG TABLET PO SCH (15:00)
[2018-04-23] MEDS ORDERED: HYDRALAZINE HCL 50MG TABLET PO SCH (15:00)
[2018-04-23] MEDS ORDERED: HYDRALAZINE 20MG/ML VIAL IV PRN (15:00)
[2018-04-23] MEDS ORDERED: ENOXAPARIN 30MG/0.3ML SYR SUBCUT SCH (21:00)
[2018-04-24] MEDS ORDERED: AMIODARONE HCL 200 MG TABLET PO SCH (09:00)
[2018-04-24] MEDS ORDERED: PREDNISONE 20MG TABLET PO SCH (09:00)
[2018-04-29] MEDS ORDERED: PREDNISONE 20MG TABLET PO SCH (09:00)
[2018-05-04] MEDS ORDERED: PREDNISONE 10MG TABLET PO SCH (09:00)
== END 2018-04-23 20:34 | DRG 720 ==
LOC: ER 17:11 → 8WST 21:26 → EDBEDREQ 21:27 → EDBEDREQSVC 21:27 → EDBEDREQTM 21:27 → ENRESERV 21:59 → 5EST 04-20 18:11
PROVIDERS: ADMIT Internal Medicine; ATTEND Internal Medicine
PROC: 5A09357 Assistance with Respiratory Ventilation, Less than 24 Consecutive Hours, Continuous Positive Airway Pressure (ICD-10-PCS; 2018-04-20)
PROC: 05H533Z Insertion of Infusion Device into Right Subclavian Vein, Percutaneous Approach (ICD-10-PCS; principal; 2018-04-21)
PROC: B546ZZA Ultrasonography of Right Subclavian Vein, Guidance (ICD-10-PCS; 2018-04-21)
PROC: 5A09357 Assistance with Respiratory Ventilation, Less than 24 Consecutive Hours, Continuous Positive Airway Pressure (ICD-10-PCS; 2018-04-21)
PROC: 5A09357 Assistance with Respiratory Ventilation, Less than 24 Consecutive Hours, Continuous Positive Airway Pressure (ICD-10-PCS; 2018-04-22)
DX: A41.9 Sepsis, unspecified organism (principal); J96.20 Acute and chronic respiratory failure, unspecified whether with hypoxia or hypercapnia; I50.33 Acute on chronic diastolic (congestive) heart failure; E87.2 Acidosis; N17.9 Acute kidney failure, unspecified; N18.3 Chronic kidney disease, stage 3 (moderate); E66.2 Morbid (severe) obesity with alveolar hypoventilation; E11.51 Type 2 diabetes mellitus with diabetic peripheral angiopathy without gangrene; E87.5 Hyperkalemia; I13.0 Hypertensive heart and chronic kidney disease with heart failure and stage 1 through stage 4 chronic kidney disease, or unspecified chronic kidney disease; J44.1 Chronic obstructive pulmonary disease with (acute) exacerbation; D63.8 Anemia in other chronic diseases classified elsewhere; E11.22 Type 2 diabetes mellitus with diabetic chronic kidney disease; E11.622 Type 2 diabetes mellitus with other skin ulcer; G47.33 Obstructive sleep apnea (adult) (pediatric); L03.115 Cellulitis of right lower limb; L97.919 Non-pressure chronic ulcer of unspecified part of right lower leg with unspecified severity; I70.202 Unspecified atherosclerosis of native arteries of extremities, left leg; L03.116 Cellulitis of left lower limb; L97.929 Non-pressure chronic ulcer of unspecified part of left lower leg with unspecified severity; I70.201 Unspecified atherosclerosis of native arteries of extremities, right leg; Z88.0 Allergy status to penicillin; Z68.35 Body mass index [BMI] 35.0-35.9, adult
CPT/HCPCS: 36415; 36569; 36600; 71045; 75635; 76937; 80048; 82375; 82805; 82962; 83605; 83735; 83880; 84100; 84145; 84484; 85007; 85027; 86850; 86900; 93005; 93923; 93970; 94640; 94660; 96365; 96366; 96375; 99285; C1725; C1769; J0610; J1200; J1650; J1940; J1956; J2920; J3370; J3490; J7030; J7040; J7042; J7060; J7620; J7626; Q9967

== ENCOUNTER 2018-05-05 14:26 | Emergency (ER) | payer MEDICAID ==
[~2018-05-05] VITALS: Ht 180.3 cm; Wt 177.0 kg
[~2018-05-05 14:26] MED LIST changes: +MAG-55 MT
[2018-05-06 02:00] VITALS: BP 175/75
== END 2018-05-06 02:39 | disposition home or self-care (01) ==
LOC: ER 14:43
DX: S82.831A Other fracture of upper and lower end of right fibula, initial encounter for closed fracture (principal); I11.0 Hypertensive heart disease with heart failure; J44.9 Chronic obstructive pulmonary disease, unspecified; E11.9 Type 2 diabetes mellitus without complications; I50.9 Heart failure, unspecified; W22.01XA Walked into wall, initial encounter; Y93.89 Activity, other specified; Y92.89 Other specified places as the place of occurrence of the external cause; Y99.8 Other external cause status; Z88.0 Allergy status to penicillin; Z79.899 Other long term (current) drug therapy
CPT/HCPCS: 29515; 73590; 73610; 99283

== ENCOUNTER 2018-05-21 14:10 | Inpatient (IN) | payer MEDICAID ==
[~2018-05-21] VITALS: Ht 193 cm; Wt 181.9 kg
[2018-05-21] MEDS ORDERED: SODIUM CHLORIDE 0.9% 1,000 ML IV ONE (16:04)
[2018-05-21] MEDS ORDERED: ONDANSETRON HCL 4MG/2ML INJ IV STA (16:04)
[2018-05-21] MEDS ORDERED: MORPHINE SULFATE 4 MG/ML CPJ (NOT FOR IM USE) IV STA (16:04)
[2018-05-21 17:11] LABS: HEMATOCRIT. 36.8 % (42.0-52.0); HEMOGLOBIN. 11.4 g/dL (14.0-18.0); MEAN CORPUSCULAR HEMOGLOBIN 27.6 pg (28.0-32.0); MEAN CORPUSCULAR VOLUME 88.7 fL (80.0-94.0); MEAN PLATELET VOLUME 9.2 fl (7.4-10.4); PLATELET 207 x1000/uL (130-400); RED BLOOD CELL COUNT 4.15 mill/uL (4.7-6.1); RED CELL DISTRIBUTION WIDTH 16.5 % (11.6-14.6)
[2018-05-21 17:14] LABS: CHLORIDE 99 mEq/L (98-107)
[2018-05-21 17:16] LABS: INR 1.2; PARTIAL THROMBOPLASTIN TIME 21.9 sec (23.4-31.0); PROTHROMBIN TIME 12.2 sec (9.1-11.1)
[2018-05-21 17:37] LABS: PLATELET ESTIMATE NORMAL
[2018-05-21 18:42] LABS: BG CARBOXYHEMOGLOBIN 1.6 % (0.5-1.5); BG DEOXYHEMOGLOBIN 5.6 % (0.0-5.0); BG FRACTION INSPIRED OXYGEN 32; BG HCO3 ACT 43.9 mmol/L (22.0-26.0); BG METHEMOGLOBIN 0.3 % (0.0-1.5); BG OXYGEN SATURATION 94.3 % (92.0-98.5); BG OXYHEMOGLOBIN 92.5 % (94.0-97.0); BG PCO2 79.3 mmHg (35.0-45.0); BG PH 7.361 (7.350-7.450); BG PO2 78.6 mmHg (75.0-100.0); BG SAMPLE SITE RIGHT RADIAL; BG TOTAL HEMOGLOBIN 12.4 g/dL (12.0-18.0); BG VENT MODE NASAL CANNULA
[2018-05-21] MEDS ORDERED: ACETAMINOPHEN 325MG TABLET PO PRN (19:00)
[2018-05-21] MEDS ORDERED: ONDANSETRON HCL 4MG/2ML INJ IV PRN (19:00)
[2018-05-21] MEDS ORDERED: MORPHINE SULFATE 4 MG/ML CPJ (NOT FOR IM USE) IV PRN (19:00)
[2018-05-21] MEDS ORDERED: LORAZEPAM 1MG TABLET PO PRN (19:00)
[2018-05-21] MEDS ORDERED: MAGNESIUM/ALUMINUM HYDROXIDE/SIMETHICONE 30ML UDC PO PRN (19:00)
[2018-05-21] MEDS ORDERED: IPRATROPIUM/ALBUTEROL 0.5-3(2.5)MG/3ML NEB INH PRN ×2 (19:00)
[2018-05-21] MEDS ORDERED: DIPHENHYDRAMINE 50MG/ML VIAL IV PRN (19:00)
[2018-05-21] MEDS ORDERED: HYDROCODONE/ACETAMINOPHEN 5/325MG TABLET PO PRN (19:00)
[2018-05-21] MEDS ORDERED: DOCUSATE SODIUM 100MG CAPSULE PO PRN (19:00)
[2018-05-21] MEDS ORDERED: ACETAMINOPHEN 650MG SUPP PR PRN (19:00)
[2018-05-21] MEDS ORDERED: GUAIFENESIN 200MG/10ML SUGAR FREE UDC PO PRN (19:00)
[2018-05-21 21:50] VITALS: BP 141/73
[2018-05-22] VITALS (25 sets, daily range): BP systolic 106–185; BP diastolic 53–89
[2018-05-22] MEDS: AMLODIPINE 5MG TABLET PO SCH (01:38)
[2018-05-22] MEDS: HYDRALAZINE HCL 25MG TABLET PO SCH ×2 (06:14→22:00)
[2018-05-22 07:47] LABS: BG BASE EXCESS 15.3 mmol/L (-2.0-2.0); BG CARBOXYHEMOGLOBIN 1.4 % (0.5-1.5); BG DEOXYHEMOGLOBIN 5.1 % (0.0-5.0); BG FRACTION INSPIRED OXYGEN 32; BG METHEMOGLOBIN 0.5 % (0.0-1.5); BG OXYGEN SATURATION 94.8 % (92.0-98.5); BG PCO2 137.1 mmHg (35.0-45.0); BG PH 7.171 (7.350-7.450); BG SAMPLE SITE RIGHT RADIAL; BG TOTAL HEMOGLOBIN 12.2 g/dL (12.0-18.0); BG VENT MODE NASAL CANNULA
[2018-05-22 09:47] LABS: HEMATOCRIT. 39.2 % (42.0-52.0); HEMOGLOBIN. 11.6 g/dL (14.0-18.0); MEAN CORPUSCULAR HEMOGLOBIN 27.4 pg (28.0-32.0); MEAN CORPUSCULAR VOLUME 92.7 fL (80.0-94.0); MEAN PLATELET VOLUME 8.7 fl (7.4-10.4); PLATELET 185 x1000/uL (130-400); RED BLOOD CELL COUNT 4.23 mill/uL (4.7-6.1); RED CELL DISTRIBUTION WIDTH 16.4 % (11.6-14.6)
[2018-05-22 09:55] LABS: CHLORIDE 99 mEq/L (98-107)
[2018-05-22 10:02] LABS: LDL CHOLESTEROL 44 mg/dL (5-100)
[2018-05-22 10:04] LABS: CREATINE KINASE 175 IU/L (39-308); HDL CHOLESTEROL 46 mg/dL (40-59)
[2018-05-22] MEDS: ENOXAPARIN 40MG/0.4ML SYR SUBCUT SCH ×2 (10:09→20:51)
[2018-05-22 13:32] LABS: BG BASE EXCESS 14.8 mmol/L (-2.0-2.0); BG BILEVEL POS AIRWAY PRESSURE ST=15/5; BG CARBOXYHEMOGLOBIN 1.4 % (0.5-1.5); BG DEOXYHEMOGLOBIN 4.5 % (0.0-5.0); BG FRACTION INSPIRED OXYGEN 50; BG HCO3 ACT 48.4 mmol/L (22.0-26.0); BG METHEMOGLOBIN 0.4 % (0.0-1.5); BG OXYGEN SATURATION 95.4 % (92.0-98.5); BG OXYHEMOGLOBIN 93.7 % (94.0-97.0); BG PCO2 136.9 mmHg (35.0-45.0); BG PH 7.166 (7.350-7.450); BG PO2 90.7 mmHg (75.0-100.0); BG PRESSURE SUPPORT 10; BG SAMPLE SITE LEFT BRACHIAL; BG TOTAL HEMOGLOBIN 11.9 g/dL (12.0-18.0); BG VENT MODE MASK - BIPAP; BG VENT RATE 16 set
[2018-05-22] MEDS ORDERED: PROPOFOL 10MG/ML 100ML 100 ML IV PRN (14:30)
[2018-05-22] MEDS ORDERED: FUROSEMIDE 40MG/4ML VIAL IVP NR (15:00)
[2018-05-22 15:43] LABS: PLATELET ESTIMATE NORMAL
[2018-05-22] MEDS: METHYLPREDNISOLONE SOD SUCC 40 MG/ML VIAL IV SCH (16:02)
[2018-05-22 16:08] LABS: BG BASE EXCESS 17.8 mmol/L (-2.0-2.0); BG BILEVEL POS AIRWAY PRESSURE 20/5; BG CARBOXYHEMOGLOBIN 1.2 % (0.5-1.5); BG DEOXYHEMOGLOBIN 9.7 % (0.0-5.0); BG FRACTION INSPIRED OXYGEN 30; BG HCO3 ACT 50.1 mmol/L (22.0-26.0); BG METHEMOGLOBIN 0.2 % (0.0-1.5); BG OXYGEN SATURATION 90.2 % (92.0-98.5); BG OXYHEMOGLOBIN 88.9 % (94.0-97.0); BG PCO2 116.1 mmHg (35.0-45.0); BG PH 7.253 (7.350-7.450); BG PO2 60.7 mmHg (75.0-100.0); BG SAMPLE SITE RIGHT RADIAL; BG TOTAL HEMOGLOBIN 12.5 g/dL (12.0-18.0); BG VENT MODE MASK - BIPAP; BG VENT RATE 20 set
[2018-05-22 17:03] LABS: HEMOGLOBIN 10.7 g/dL (14.0-18.0); MEAN CORPUSCULAR HEMOGLOBIN 27.6 pg (28.0-32.0); MEAN CORPUSCULAR VOLUME 92.4 fL (80.0-94.0); PLATELET 197 x1000/uL (130-400); RED CELL DISTRIBUTION WIDTH 16.2 % (11.6-14.6)
[2018-05-22 17:08] LABS: CHLORIDE 98 mEq/L (98-107)
[2018-05-22] MEDS: IPRATROPIUM/ALBUTEROL 0.5-3(2.5)MG/3ML NEB INH SCH (20:48)
[2018-05-22] MEDS: FUROSEMIDE 40MG/4ML VIAL IVP SCH (20:52)
[2018-05-23] VITALS (47 sets, daily range): BP systolic 109–182; BP diastolic 44–111
[2018-05-23] MEDS: IPRATROPIUM/ALBUTEROL 0.5-3(2.5)MG/3ML NEB INH SCH ×6 (00:22→20:40)
[2018-05-23] MEDS: METHYLPREDNISOLONE SOD SUCC 40 MG/ML VIAL IV SCH ×4 (00:24→23:29)
[2018-05-23] MEDS: HYDRALAZINE HCL 25MG TABLET PO SCH ×3 (05:34→21:10)
[2018-05-23 05:39] LABS: HEMATOCRIT 35.5 % (42.0-52.0); HEMOGLOBIN 10.7 g/dL (14.0-18.0); MEAN CORPUSCULAR VOLUME 89.5 fL (80.0-94.0); PLATELET 190 x1000/uL (130-400); RED BLOOD CELL COUNT 3.97 mill/uL (4.7-6.1); RED CELL DISTRIBUTION WIDTH 15.8 % (11.6-14.6)
[2018-05-23 05:45] LABS: CHLORIDE 99 mEq/L (98-107)
[2018-05-23] MEDS: HYDRALAZINE 20MG/ML VIAL IV PRN (05:55)
[2018-05-23 08:10] LABS: BG BASE EXCESS 14.9 mmol/L (-2.0-2.0); BG BILEVEL POS AIRWAY PRESSURE 20/5; BG CARBOXYHEMOGLOBIN 0.7 % (0.5-1.5); BG DEOXYHEMOGLOBIN 6.9 % (0.0-5.0); BG FRACTION INSPIRED OXYGEN 40; BG HCO3 ACT 40.8 mmol/L (22.0-26.0); BG METHEMOGLOBIN 0.2 % (0.0-1.5); BG OXYHEMOGLOBIN 92.2 % (94.0-97.0); BG PCO2 56.7 mmHg (35.0-45.0); BG PH 7.475 (7.350-7.450); BG PO2 60.3 mmHg (75.0-100.0); BG SAMPLE SITE RIGHT RADIAL; BG TOTAL HEMOGLOBIN 11.8 g/dL (12.0-18.0); BG VENT MODE MASK - BIPAP; BG VENT RATE 20 set
[2018-05-23] MEDS ORDERED: FUROSEMIDE 40MG/4ML VIAL IVP SCH (09:00)
[2018-05-23] MEDS: FUROSEMIDE 40MG/4ML VIAL IVP SCH ×3 (09:07→17:14)
[2018-05-23] MEDS: AMLODIPINE 5MG TABLET PO SCH (09:07)
[2018-05-23] MEDS: ENOXAPARIN 40MG/0.4ML SYR SUBCUT SCH ×2 (09:08→21:09)
[2018-05-23] MEDS ORDERED: AMIODARONE HCL 200 MG TABLET PO SCH (12:00)
[2018-05-24] VITALS (29 sets, daily range): BP systolic 131–187; BP diastolic 63–124
[2018-05-24] MEDS: IPRATROPIUM/ALBUTEROL 0.5-3(2.5)MG/3ML NEB INH SCH ×6 (00:35→20:43)
[2018-05-24] MEDS: HYDRALAZINE HCL 25MG TABLET PO SCH (05:07)
[2018-05-24 05:43] LABS: HEMATOCRIT. 36.3 % (42.0-52.0); HEMOGLOBIN. 11.3 g/dL (14.0-18.0); MEAN CORPUSCULAR HEMOGLOBIN 27.3 pg (28.0-32.0); MEAN CORPUSCULAR VOLUME 87.7 fL (80.0-94.0); MEAN PLATELET VOLUME 9.3 fl (7.4-10.4); PLATELET 184 x1000/uL (130-400); RED BLOOD CELL COUNT 4.14 mill/uL (4.7-6.1); RED CELL DISTRIBUTION WIDTH 15.9 % (11.6-14.6)
[2018-05-24 06:11] LABS: CHLORIDE 96 mEq/L (98-107)
[2018-05-24] MEDS: HYDRALAZINE 20MG/ML VIAL IV PRN (07:49)
[2018-05-24] MEDS: METHYLPREDNISOLONE SOD SUCC 40 MG/ML VIAL IV SCH ×2 (07:49→21:14)
[2018-05-24 08:15] LABS: PLATELET ESTIMATE NORMAL
[2018-05-24] MEDS: ENOXAPARIN 40MG/0.4ML SYR SUBCUT SCH ×2 (08:29→21:14)
[2018-05-24] MEDS: AMLODIPINE 5MG TABLET PO SCH (08:30)
[2018-05-24] MEDS: FUROSEMIDE 40MG/4ML VIAL IVP SCH ×3 (08:30→16:37)
[2018-05-24 09:24] LABS: BG BASE EXCESS 11.8 mmol/L (-2.0-2.0); BG CARBOXYHEMOGLOBIN 0.7 % (0.5-1.5); BG DEOXYHEMOGLOBIN 6.6 % (0.0-5.0); BG FRACTION INSPIRED OXYGEN 26; BG METHEMOGLOBIN 0.4 % (0.0-1.5); BG OXYGEN SATURATION 93.3 % (92.0-98.5); BG OXYHEMOGLOBIN 92.3 % (94.0-97.0); BG PCO2 50.4 mmHg (35.0-45.0); BG PH 7.484 (7.350-7.450); BG PO2 68.4 mmHg (75.0-100.0); BG SAMPLE SITE RIGHT RADIAL; BG TOTAL HEMOGLOBIN 12.8 g/dL (12.0-18.0); BG VENT MODE NASAL CANNULA
[2018-05-24] MEDS: SILVER SULFADIAZINE 1% CREAM 50GM TOP SCH (10:22)
[2018-05-24] MEDS ORDERED: PIPERACILLIN/TAZ 3.375G PREMIX 50 ML IV SCH (13:00)
[2018-05-24] MEDS: HYDRALAZINE HCL 50MG TABLET PO SCH ×2 (13:49→21:14)
[2018-05-24] MEDS: LEVOFLOXACIN 500MG PREMIX 100 ML IV SCH (15:53)
[2018-05-25] VITALS (13 sets, daily range): BP systolic 142–183; BP diastolic 69–93
[2018-05-25] MEDS: BUDESONIDE 0.5MG/2ML NEB HHN SCH ×3 (00:11→20:16)
[2018-05-25] MEDS: IPRATROPIUM/ALBUTEROL 0.5-3(2.5)MG/3ML NEB INH SCH ×5 (00:11→20:14)
[2018-05-25] MEDS: HYDRALAZINE HCL 50MG TABLET PO SCH (06:17)
[2018-05-25 07:55] LABS: HEMATOCRIT. 37.2 % (42.0-52.0); HEMOGLOBIN. 11.5 g/dL (14.0-18.0); MEAN CORPUSCULAR VOLUME 87.1 fL (80.0-94.0); MEAN PLATELET VOLUME 9.2 fl (7.4-10.4); PLATELET 183 x1000/uL (130-400); RED BLOOD CELL COUNT 4.26 mill/uL (4.7-6.1); RED CELL DISTRIBUTION WIDTH 16.3 % (11.6-14.6)
[2018-05-25 08:14] LABS: CHLORIDE 97 mEq/L (98-107)
[2018-05-25] MEDS: AMLODIPINE 5MG TABLET PO SCH (09:07)
[2018-05-25] MEDS: AMIODARONE HCL 200 MG TABLET PO SCH (09:07)
[2018-05-25] MEDS: FUROSEMIDE 40MG/4ML VIAL IVP SCH ×3 (09:07→16:47)
[2018-05-25] MEDS: METHYLPREDNISOLONE SOD SUCC 40 MG/ML VIAL IV SCH ×2 (09:07→20:41)
[2018-05-25] MEDS: SILVER SULFADIAZINE 1% CREAM 50GM TOP SCH (09:09)
[2018-05-25] MEDS: ENOXAPARIN 40MG/0.4ML SYR SUBCUT SCH ×2 (09:09→20:41)
[2018-05-25 10:09] LABS: BG BASE EXCESS 14.1 mmol/L (-2.0-2.0); BG CARBOXYHEMOGLOBIN 0.6 % (0.5-1.5); BG DEOXYHEMOGLOBIN 6.7 % (0.0-5.0); BG FRACTION INSPIRED OXYGEN 28; BG HCO3 ACT 40.3 mmol/L (22.0-26.0); BG METHEMOGLOBIN 0.3 % (0.0-1.5); BG OXYGEN SATURATION 93.2 % (92.0-98.5); BG OXYHEMOGLOBIN 92.4 % (94.0-97.0); BG PCO2 57.6 mmHg (35.0-45.0); BG PH 7.463 (7.350-7.450); BG PO2 68.4 mmHg (75.0-100.0); BG SAMPLE SITE RIGHT RADIAL; BG TOTAL HEMOGLOBIN 12.9 g/dL (12.0-18.0); BG VENT MODE NASAL CANNULA
[2018-05-25] MEDS: HYDRALAZINE 20MG/ML VIAL IV PRN (12:03)
[2018-05-25 12:21] LABS: PLATELET ESTIMATE NORMAL
[2018-05-25] MEDS: LEVOFLOXACIN 500MG PREMIX 100 ML IV SCH (13:39)
[2018-05-25] MEDS: HYDRALAZINE HCL 100MG TABLET PO SCH ×2 (13:39→20:41)
[2018-05-25 15:44] LABS: CLARITY URINE CLEAR (CLEAR); COLOR URINE YELLOW (YELLOW); KETONES URINE NEGATIVE (NEGATIVE); LEUKOCYTE ESTERASE URINE NEGATIVE (NEGATIVE); NITRITE URINE NEGATIVE (NEGATIVE); OCCULT BLOOD URINE NEGATIVE (NEGATIVE); PH URINE >=9.0 (4.5-8.0); PROTEIN URINE NEGATIVE (NEGATIVE)
[2018-05-26] VITALS (12 sets, daily range): BP systolic 128–168; BP diastolic 59–81
[2018-05-26] MEDS: IPRATROPIUM/ALBUTEROL 0.5-3(2.5)MG/3ML NEB INH SCH ×6 (00:04→20:21)
[2018-05-26] MEDS: HYDRALAZINE HCL 100MG TABLET PO SCH ×3 (05:51→21:13)
[2018-05-26 05:57] LABS: HEMATOCRIT 38.4 % (42.0-52.0); HEMOGLOBIN 11.9 g/dL (14.0-18.0); MEAN CORPUSCULAR HEMOGLOBIN 26.9 pg (28.0-32.0); MEAN CORPUSCULAR VOLUME 86.9 fL (80.0-94.0); PLATELET 189 x1000/uL (130-400); RED BLOOD CELL COUNT 4.42 mill/uL (4.7-6.1)
[2018-05-26 06:22] LABS: CHLORIDE 96 mEq/L (98-107)
[2018-05-26] MEDS: BUDESONIDE 0.5MG/2ML NEB HHN SCH ×2 (07:31→20:21)
[2018-05-26] MEDS: AMIODARONE HCL 200 MG TABLET PO SCH (09:33)
[2018-05-26] MEDS: FUROSEMIDE 40MG/4ML VIAL IVP SCH ×3 (09:33→17:21)
[2018-05-26] MEDS: METHYLPREDNISOLONE SOD SUCC 40 MG/ML VIAL IV SCH ×2 (09:33→21:11)
[2018-05-26] MEDS: AMLODIPINE 5MG TABLET PO SCH (09:34)
[2018-05-26] MEDS: ENOXAPARIN 40MG/0.4ML SYR SUBCUT SCH ×2 (09:35→21:11)
[2018-05-26] MEDS: SILVER SULFADIAZINE 1% CREAM 50GM TOP SCH (09:47)
[2018-05-26] MEDS ORDERED: LACTULOSE 20G/30ML UDC PO NR (13:15)
[2018-05-26] MEDS: LEVOFLOXACIN 500MG PREMIX 100 ML IV SCH (14:02)
[2018-05-27] VITALS: BP 138/62
[2018-05-27] MEDS: IPRATROPIUM/ALBUTEROL 0.5-3(2.5)MG/3ML NEB INH SCH ×6 (00:20→20:04)
[2018-05-27 04:00] VITALS: BP 155/79
[2018-05-27] MEDS: HYDRALAZINE HCL 100MG TABLET PO SCH ×3 (06:01→21:11)
[2018-05-27] MEDS: FUROSEMIDE 40MG/4ML VIAL IVP SCH (06:02)
[2018-05-27 08:00] VITALS: BP 140/64
[2018-05-27] MEDS: BUDESONIDE 0.5MG/2ML NEB HHN SCH ×2 (09:15→20:05)
[2018-05-27] MEDS: METHYLPREDNISOLONE SOD SUCC 40 MG/ML VIAL IV SCH ×2 (09:38→20:40)
[2018-05-27] MEDS: ENOXAPARIN 40MG/0.4ML SYR SUBCUT SCH ×2 (09:38→20:40)
[2018-05-27] MEDS: AMLODIPINE 5MG TABLET PO SCH (09:38)
[2018-05-27] MEDS: SILVER SULFADIAZINE 1% CREAM 50GM TOP SCH (09:39)
[2018-05-27] MEDS: AMIODARONE HCL 200 MG TABLET PO SCH (09:39)
[2018-05-27 12:00] VITALS: BP 149/79
[2018-05-27] MEDS: LEVOFLOXACIN 500MG PREMIX 100 ML IV SCH (15:17)
[2018-05-27 16:00] VITALS: BP 142/77
[2018-05-27 20:40] VITALS: BP 140/70
[2018-05-28] VITALS (8 sets, daily range): BP systolic 107–168; BP diastolic 60–92
[2018-05-28] MEDS: IPRATROPIUM/ALBUTEROL 0.5-3(2.5)MG/3ML NEB INH SCH ×5 (01:00→15:35)
[2018-05-28] MEDS: HYDRALAZINE HCL 100MG TABLET PO SCH ×2 (05:54→13:29)
[2018-05-28] MEDS: FUROSEMIDE 40MG/4ML VIAL IVP SCH (06:27)
[2018-05-28 06:36] LABS: HEMATOCRIT 39.7 % (42.0-52.0); HEMOGLOBIN 12.4 g/dL (14.0-18.0); MEAN CORPUSCULAR HEMOGLOBIN 26.9 pg (28.0-32.0); PLATELET 185 x1000/uL (130-400); RED BLOOD CELL COUNT 4.61 mill/uL (4.7-6.1); RED CELL DISTRIBUTION WIDTH 15.7 % (11.6-14.6)
[2018-05-28 06:46] LABS: CHLORIDE 95 mEq/L (98-107)
[2018-05-28] MEDS: AMIODARONE HCL 200 MG TABLET PO SCH (08:06)
[2018-05-28] MEDS: AMLODIPINE 5MG TABLET PO SCH (08:06)
[2018-05-28] MEDS: ENOXAPARIN 40MG/0.4ML SYR SUBCUT SCH (08:06)
[2018-05-28] MEDS: METHYLPREDNISOLONE SOD SUCC 40 MG/ML VIAL IV SCH (08:07)
[2018-05-28] MEDS: SILVER SULFADIAZINE 1% CREAM 50GM TOP SCH (08:43)
[2018-05-28] MEDS ORDERED: LEVOFLOXACIN 500MG TABLET PO SCH (11:00)
[2018-05-29] MEDS ORDERED: PREDNISONE 20MG TABLET PO SCH ×2 (09:00)
[2018-06-03] MEDS ORDERED: PREDNISONE 20MG TABLET PO SCH (09:00)
[2018-06-08] MEDS ORDERED: PREDNISONE 10MG TABLET PO SCH (09:00)
== END 2018-05-28 19:42 | DRG 342 ==
LOC: ER 14:10 → EDBEDREQSVC 17:36 → ENRESERV 18:38 → 6WST 05-22 00:26 → 5EST 05-22 08:17 → CVICU 05-22 14:35 → 5EST 05-24 17:16
PROVIDERS: ADMIT Internal Medicine; ATTEND Internal Medicine
PROC: 5A09357 Assistance with Respiratory Ventilation, Less than 24 Consecutive Hours, Continuous Positive Airway Pressure (ICD-10-PCS; principal; 2018-05-22)
PROC: 02HV33Z Insertion of Infusion Device into Superior Vena Cava, Percutaneous Approach (ICD-10-PCS; 2018-05-22)
PROC: 5A09357 Assistance with Respiratory Ventilation, Less than 24 Consecutive Hours, Continuous Positive Airway Pressure (ICD-10-PCS; 2018-05-23)
PROC: 5A09357 Assistance with Respiratory Ventilation, Less than 24 Consecutive Hours, Continuous Positive Airway Pressure (ICD-10-PCS; 2018-05-24)
PROC: 5A09357 Assistance with Respiratory Ventilation, Less than 24 Consecutive Hours, Continuous Positive Airway Pressure (ICD-10-PCS; 2018-05-26)
PROC: 5A09357 Assistance with Respiratory Ventilation, Less than 24 Consecutive Hours, Continuous Positive Airway Pressure (ICD-10-PCS; 2018-05-27)
PROC: 5A09357 Assistance with Respiratory Ventilation, Less than 24 Consecutive Hours, Continuous Positive Airway Pressure (ICD-10-PCS; 2018-05-28)
DX: S82.831A Other fracture of upper and lower end of right fibula, initial encounter for closed fracture (principal); J96.22 Acute and chronic respiratory failure with hypercapnia; I50.33 Acute on chronic diastolic (congestive) heart failure; G93.41 Metabolic encephalopathy; E87.2 Acidosis; N17.9 Acute kidney failure, unspecified; N18.9 Chronic kidney disease, unspecified; I13.0 Hypertensive heart and chronic kidney disease with heart failure and stage 1 through stage 4 chronic kidney disease, or unspecified chronic kidney disease; E11.22 Type 2 diabetes mellitus with diabetic chronic kidney disease; E66.2 Morbid (severe) obesity with alveolar hypoventilation; L97.909 Non-pressure chronic ulcer of unspecified part of unspecified lower leg with unspecified severity; L03.90 Cellulitis, unspecified; E11.51 Type 2 diabetes mellitus with diabetic peripheral angiopathy without gangrene; E11.622 Type 2 diabetes mellitus with other skin ulcer; F17.200 Nicotine dependence, unspecified, uncomplicated; J44.9 Chronic obstructive pulmonary disease, unspecified; D64.9 Anemia, unspecified; T50.2X5A Adverse effect of carbonic-anhydrase inhibitors, benzothiadiazides and other diuretics, initial encounter; W18.30XA Fall on same level, unspecified, initial encounter; Z74.01 Bed confinement status; Y93.89 Activity, other specified; Y92.89 Other specified places as the place of occurrence of the external cause; Y99.8 Other external cause status; Z88.0 Allergy status to penicillin
CPT/HCPCS: 36415; 36600; 71045; 72170; 73610; 80048; 80061; 82375; 82550; 82553; 82805; 84443; 85027; 86850; 86900; 87804; 93005; 93970; 94640; 94660; 97162; 97530; 99285; A4565; J0360; J1650; J1940; J1956; J2270; J2405; J2920; J7030; J7050; J7070; J7620; J7626; A4315

== ENCOUNTER 2019-10-27 08:54 | Inpatient (IN) | payer MEDICARE, MEDICAID ==
[2019-10-27] VITALS (35 sets, daily range): BP systolic 91–164; BP diastolic 55–103
[~2019-10-27] VITALS: Ht 180.3 cm; Wt 144.5 kg
[2019-10-27] MEDS ORDERED: IPRATROPIUM BROMIDE (0.02%) 0.5MG/2.5ML NEB HHN STA (09:05)
[2019-10-27] MEDS ORDERED: ALBUTEROL (0.083%) 2.5MG/3ML NEB HHN STA (09:05)
[2019-10-27] MEDS ORDERED: METHYLPREDNISOLONE SOD SUCC 125 MG/2 ML VIAL IV STA (09:05)
[2019-10-27 09:32] LABS: BG BILEVEL POS AIRWAY PRESSURE 15/5; BG CARBOXYHEMOGLOBIN 2.4 % (0.5-1.5); BG DEOXYHEMOGLOBIN 0.4 % (0.0-5.0); BG FRACTION INSPIRED OXYGEN 100; BG METHEMOGLOBIN 0.4 % (0.0-1.5); BG OXYGEN SATURATION 99.6 % (92.0-98.5); BG OXYHEMOGLOBIN 96.8 % (94.0-97.0); BG PCO2 > 183.4 mmHg (35.0-45.0); BG PH 7.064 (7.350-7.450); BG PO2 342.6 mmHg (75.0-100.0); BG SAMPLE SITE LEFT RADIAL; BG TOTAL HEMOGLOBIN 13.6 g/dL (12.0-18.0); BG VENT MODE MASK - BIPAP; BG VENT RATE 14 set
[2019-10-27] MEDS ORDERED: PROPOFOL 10MG/ML 100ML 100 ML IV ONE ×2 (10:02→10:30)
[2019-10-27] MEDS ORDERED: ETOMIDATE 2MG/ML 10ML VIAL IV ONE (10:30)
[2019-10-27] MEDS ORDERED: SUCCINYLCHOLINE CHLORIDE 200MG/10ML IV ONE (10:30)
[2019-10-27 10:41] LABS: CHLORIDE 97 mEq/L (98-107)
[2019-10-27 11:22] LABS: CLARITY URINE CLOUDY (CLEAR); COLOR URINE DARK YELLOW (YELLOW); KETONES URINE NEGATIVE (NEGATIVE); LEUKOCYTE ESTERASE URINE NEGATIVE (NEGATIVE); NITRITE URINE NEGATIVE (NEGATIVE); OCCULT BLOOD URINE NEGATIVE (NEGATIVE); PROTEIN URINE 2+ (NEGATIVE); SPECIFIC GRAVITY URINE 1.018 (1.005-1.030)
[2019-10-27] MEDS: PROPOFOL 10MG/ML 100ML 100 ML IV PRN ×5 (12:49→23:24)
[2019-10-27] MEDS ORDERED: SODIUM POLYSTYRENE SULFONATE 15 G/60 ML BOT PO NR (13:15)
[2019-10-27] MEDS ORDERED: LORAZEPAM 0.5MG TABLET PO PRN (13:15)
[2019-10-27] MEDS ORDERED: ACETAMINOPHEN 650MG SUPP PR PRN (13:15)
[2019-10-27] MEDS ORDERED: NA PHOS,M-B/NA PHOS,DI-BA ENEMA 118ML PR PRN (13:15)
[2019-10-27] MEDS ORDERED: DIPHENHYDRAMINE 50MG/ML VIAL IV PRN (13:15)
[2019-10-27] MEDS ORDERED: ONDANSETRON HCL 4MG/2ML INJ IV PRN (13:15)
[2019-10-27] MEDS ORDERED: HYDROCODONE/ACETAMINOPHEN 5/325MG TABLET PO PRN (13:15)
[2019-10-27] MEDS ORDERED: MAGNESIUM/ALUMINUM HYDROXIDE/SIMETHICONE 30ML UDC PO PRN (13:15)
[2019-10-27] MEDS ORDERED: DOCUSATE SODIUM 100MG CAPSULE PO PRN (13:15)
[2019-10-27 13:26] LABS: BG BASE EXCESS 13.7 mmol/L (-2.0-2.0); BG CARBOXYHEMOGLOBIN 1.9 % (0.5-1.5); BG DEOXYHEMOGLOBIN 3.8 % (0.0-5.0); BG FRACTION INSPIRED OXYGEN 40; BG HCO3 ACT 44.6 mmol/L (22.0-26.0); BG METHEMOGLOBIN 0.2 % (0.0-1.5); BG OXYGEN SATURATION 96.1 % (92.0-98.5); BG OXYHEMOGLOBIN 94.1 % (94.0-97.0); BG PH 7.276 (7.350-7.450); BG PO2 80.8 mmHg (75.0-100.0); BG SAMPLE SITE RIGHT RADIAL; BG TIDAL VOLUME(mL) 500 mL; BG TOTAL HEMOGLOBIN 12.6 g/dL (12.0-18.0); BG VENT MODE VENT - A/C; BG VENT RATE 18 set
[2019-10-27] MEDS ORDERED: DILTIAZEM HCL 30MG TABLET PO SCH (14:00)
[2019-10-27] MEDS ORDERED: LIDOCAINE HCL 1% 20ML VIAL (Pyxis) INJ ONE (14:05)
[2019-10-27] MEDS: FAMOTIDINE 20MG/2ML VIAL IV SCH (14:38)
[2019-10-27] MEDS ORDERED: FUROSEMIDE 40MG/4ML VIAL IVP NR (14:45)
[2019-10-27] MEDS: AMIODARONE HCL 200 MG TABLET PO SCH (15:31)
[2019-10-27 16:20] LABS: *AMPHETAMINES SCREEN URINE NEGATIVE (NEGATIVE); *BARBITURATES SCREEN URINE NEGATIVE (NEGATIVE); *BENZODIAZEPINES SCREEN URINE NEGATIVE (NEGATIVE); *COCAINE SCREEN URINE NEGATIVE (NEGATIVE); METHADONE URINE SCREEN NEGATIVE (NEGATIVE); OPIATES URINE SCREEN PRESUMTIVE POSITIVE (NEGATIVE); PHENCYCLIDINE URINE SCREEN NEGATIVE (NEGATIVE)
[2019-10-27 16:21] LABS: CANNABINOID URINE SCREEN NEGATIVE (NEGATIVE)
[2019-10-27 16:57] LABS: HEMATOCRIT. 36.9 % (42.0-52.0); HEMOGLOBIN. 12.1 g/dL (14.0-18.0); MEAN CORPUSCULAR HEMOGLOBIN 31.1 pg (28.0-32.0); MEAN CORPUSCULAR VOLUME 94.6 fL (80.0-94.0); MEAN PLATELET VOLUME 10.3 fl (7.4-10.4); PLATELET 173 x1000/uL (130-400); RED CELL DISTRIBUTION WIDTH 15.3 % (11.6-14.6)
[2019-10-27 17:05] LABS: BG BASE EXCESS 15.8 mmol/L (-2.0-2.0); BG DEOXYHEMOGLOBIN 7.2 % (0.0-5.0); BG HCO3 ACT 44.5 mmol/L (22.0-26.0); BG OXYGEN SATURATION 92.7 % (92.0-98.5); BG OXYHEMOGLOBIN 90.8 % (94.0-97.0); BG PCO2 74.6 mmHg (35.0-45.0); BG PH 7.393 (7.350-7.450); BG PO2 56.1 mmHg (75.0-100.0); BG SAMPLE SITE RIGHT RADIAL; BG TIDAL VOLUME(mL) 500 mL; BG TOTAL HEMOGLOBIN 13.5 g/dL (12.0-18.0); BG VENT MODE VENT - A/C; BG VENT RATE 24 set
[2019-10-27] MEDS: METHYLPREDNISOLONE SOD SUCC 125 MG/2 ML VIAL IV SCH (17:07)
[2019-10-27] MEDS: LEVOFLOXACIN 500MG PREMIX 100 ML IV SCH (17:07)
[2019-10-27 17:16] LABS: PROTHROMBIN TIME 10.7 sec (9.6-11.0)
[2019-10-27 17:36] LABS: PLATELET ESTIMATE NORMAL
[2019-10-27 17:38] LABS: CREATINE KINASE MB FRACTION 15.6 ng/mL (0.5-3.6)
[2019-10-27] MEDS ORDERED: DILTIAZEM HCL 5MG/ML 5ML VIAL IV NR (18:00)
[2019-10-27] MEDS: DILTIAZEM HCL 60MG TABLET PO SCH (19:59)
[2019-10-27] MEDS: BUDESONIDE 0.5MG/2ML NEB HHN SCH (20:10)
[2019-10-27] MEDS: IPRATROPIUM/ALBUTEROL 0.5-3(2.5)MG/3ML NEB NEB SCH (20:10)
[2019-10-27] MEDS: METOPROLOL TARTRATE 25MG TABLET PO SCH (21:00)
[2019-10-27 23:41] LABS: CREATINE KINASE MB FRACTION 19.7 ng/mL (0.5-3.6)
[2019-10-28] VITALS (68 sets, daily range): BP systolic 105–158; BP diastolic 59–106
[2019-10-28] MEDS: METHYLPREDNISOLONE SOD SUCC 125 MG/2 ML VIAL IV SCH ×3 (01:52→16:44)
[2019-10-28] MEDS: ENOXAPARIN 150MG/ML SYR SUBCUT SCH ×2 (01:53→12:48)
[2019-10-28] MEDS: DILTIAZEM HCL 60MG TABLET PO SCH ×2 (01:53→08:06)
[2019-10-28] MEDS: IPRATROPIUM/ALBUTEROL 0.5-3(2.5)MG/3ML NEB NEB SCH ×4 (04:00→21:20)
[2019-10-28] MEDS: PROPOFOL 10MG/ML 100ML 100 ML IV PRN ×6 (05:01→22:15)
[2019-10-28 05:25] LABS: CHLORIDE 97 mEq/L (98-107)
[2019-10-28 05:30] LABS: HDL CHOLESTEROL 36 mg/dL (40-59); LDL CHOLESTEROL 49 mg/dL (5-100)
[2019-10-28 05:31] LABS: T4 FREE 0.95 ng/dL (0.76-1.46)
[2019-10-28 07:44] LABS: HEMATOCRIT. 37.1 % (42.0-52.0); HEMOGLOBIN. 11.8 g/dL (14.0-18.0); MEAN CORPUSCULAR HEMOGLOBIN 29.3 pg (28.0-32.0); MEAN CORPUSCULAR VOLUME 91.9 fL (80.0-94.0); MEAN PLATELET VOLUME 10.2 fl (7.4-10.4); PLATELET 173 x1000/uL (130-400); RED BLOOD CELL COUNT 4.03 mill/uL (4.7-6.1)
[2019-10-28] MEDS: FUROSEMIDE 40MG/4ML VIAL IV SCH ×2 (07:44→16:44)
[2019-10-28] MEDS: FAMOTIDINE 20MG/2ML VIAL IV SCH (08:05)
[2019-10-28] MEDS: ASPIRIN 81MG EC TABLET PO SCH (08:06)
[2019-10-28] MEDS: AMIODARONE HCL 200 MG TABLET PO SCH (08:06)
[2019-10-28] MEDS: METOPROLOL TARTRATE 25MG TABLET PO SCH (08:06)
[2019-10-28 08:35] LABS: BG BASE EXCESS 15.4 mmol/L (-2.0-2.0); BG CARBOXYHEMOGLOBIN 0.5 % (0.5-1.5); BG DEOXYHEMOGLOBIN 2.2 % (0.0-5.0); BG FRACTION INSPIRED OXYGEN 60; BG HCO3 ACT 42.3 mmol/L (22.0-26.0); BG METHEMOGLOBIN 0.2 % (0.0-1.5); BG OXYGEN SATURATION 97.8 % (92.0-98.5); BG OXYHEMOGLOBIN 97.1 % (94.0-97.0); BG PCO2 61.9 mmHg (35.0-45.0); BG PH 7.452 (7.350-7.450); BG PO2 100.4 mmHg (75.0-100.0); BG SAMPLE SITE RIGHT RADIAL; BG TIDAL VOLUME(mL) 500 mL; BG TOTAL HEMOGLOBIN 12.8 g/dL (12.0-18.0); BG VENT MODE VENT - A/C; BG VENT RATE 24 set
[2019-10-28 08:51] LABS: PLATELET ESTIMATE NORMAL
[2019-10-28] MEDS ORDERED: FUROSEMIDE 40MG/4ML VIAL IV SCH (09:00)
[2019-10-28] MEDS ORDERED: SODIUM POLYSTYRENE SULFONATE 15 G/60 ML BOT PO NR (11:00)
[2019-10-28] MEDS: BUDESONIDE 0.5MG/2ML NEB HHN SCH ×3 (13:06→21:20)
[2019-10-28] MEDS: DILTIAZEM HCL 125 MG in DEXT 5% WATER 100 ML IV PRN ×2 (15:00→21:17)
[2019-10-28] MEDS: LEVOFLOXACIN 500MG PREMIX 100 ML IV SCH (15:48)
[2019-10-28] MEDS: METOPROLOL TARTRATE 50MG TABLET PO SCH (16:44)
[2019-10-28] MEDS ORDERED: METOPROLOL TARTRATE 50MG TABLET PO SCH (21:00)
[2019-10-29] VITALS (68 sets, daily range): BP systolic 79–160; BP diastolic 43–101
[2019-10-29] MEDS: ENOXAPARIN 150MG/ML SYR SUBCUT SCH ×2 (00:27→12:30)
[2019-10-29] MEDS: METHYLPREDNISOLONE SOD SUCC 125 MG/2 ML VIAL IV SCH ×2 (00:27→08:39)
[2019-10-29] MEDS: PROPOFOL 10MG/ML 100ML 100 ML IV PRN ×6 (00:29→23:28)
[2019-10-29] MEDS: IPRATROPIUM/ALBUTEROL 0.5-3(2.5)MG/3ML NEB NEB SCH ×4 (01:02→20:10)
[2019-10-29 07:38] LABS: HEMATOCRIT. 39.7 % (42.0-52.0); HEMOGLOBIN. 12.6 g/dL (14.0-18.0); MEAN CORPUSCULAR VOLUME 91.5 fL (80.0-94.0); MEAN PLATELET VOLUME 10.8 fl (7.4-10.4); PLATELET 175 x1000/uL (130-400); RED BLOOD CELL COUNT 4.34 mill/uL (4.7-6.1)
[2019-10-29] MEDS: BUDESONIDE 0.5MG/2ML NEB HHN SCH ×2 (08:05→20:15)
[2019-10-29] MEDS: FUROSEMIDE 40MG/4ML VIAL IV SCH ×2 (08:34→17:16)
[2019-10-29] MEDS: DILTIAZEM HCL 125 MG in DEXT 5% WATER 100 ML IV PRN (08:34)
[2019-10-29] MEDS: METOPROLOL TARTRATE 50MG TABLET PO SCH (08:35)
[2019-10-29] MEDS: ASPIRIN 81MG EC TABLET PO SCH (08:35)
[2019-10-29] MEDS: AMIODARONE HCL 200 MG TABLET PO SCH (08:35)
[2019-10-29] MEDS: FAMOTIDINE 20MG/2ML VIAL IV SCH (08:37)
[2019-10-29] MEDS ORDERED: POTASSIUM CHLORIDE 10MEQ TABLET SR PO NR (09:45)
[2019-10-29] MEDS: LEVOFLOXACIN 500MG PREMIX 100 ML IV SCH (14:12)
[2019-10-29 15:15] LABS: BG BASE EXCESS 12.2 mmol/L (-2.0-2.0); BG CARBOXYHEMOGLOBIN 0.3 % (0.5-1.5); BG DEOXYHEMOGLOBIN 3.5 % (0.0-5.0); BG HCO3 ACT 37.7 mmol/L (22.0-26.0); BG METHEMOGLOBIN 0.2 % (0.0-1.5); BG OXYGEN SATURATION 96.5 % (92.0-98.5); BG PCO2 51.6 mmHg (35.0-45.0); BG PH 7.482 (7.350-7.450); BG PO2 84.8 mmHg (75.0-100.0); BG SAMPLE SITE RIGHT RADIAL; BG TIDAL VOLUME(mL) 500 mL; BG TOTAL HEMOGLOBIN 14.1 g/dL (12.0-18.0); BG VENT MODE VENT - A/C; BG VENT RATE 18 set
[2019-10-29 15:40] LABS: NUCLEATED RED BLOOD CELLS 1 /100 WBC; PLATELET ESTIMATE NORMAL
[2019-10-29] MEDS: DILTIAZEM HCL 30MG TABLET PO SCH (17:16)
[2019-10-29] MEDS: METHYLPREDNISOLONE SOD SUCC 40 MG/ML VIAL IV SCH (17:17)
[2019-10-29 18:07] LABS: BG BASE EXCESS 12.8 mmol/L (-2.0-2.0); BG CARBOXYHEMOGLOBIN 0.5 % (0.5-1.5); BG DEOXYHEMOGLOBIN 3.7 % (0.0-5.0); BG FRACTION INSPIRED OXYGEN 50; BG HCO3 ACT 41.6 mmol/L (22.0-26.0); BG METHEMOGLOBIN 0.2 % (0.0-1.5); BG OXYGEN SATURATION 96.3 % (92.0-98.5); BG OXYHEMOGLOBIN 95.6 % (94.0-97.0); BG PCO2 72.6 mmHg (35.0-45.0); BG PH 7.376 (7.350-7.450); BG PRESSURE SUPPORT 10; BG SAMPLE SITE RIGHT RADIAL; BG TOTAL HEMOGLOBIN 14.6 g/dL (12.0-18.0); BG VENT MODE VENT - CPAP
[2019-10-30] VITALS (78 sets, daily range): BP systolic 97–193; BP diastolic 30–163
[2019-10-30] MEDS: METHYLPREDNISOLONE SOD SUCC 40 MG/ML VIAL IV SCH ×3 (01:11→16:00)
[2019-10-30] MEDS: ENOXAPARIN 150MG/ML SYR SUBCUT SCH ×2 (01:11→12:08)
[2019-10-30] MEDS: DILTIAZEM HCL 30MG TABLET PO SCH ×2 (01:12→05:48)
[2019-10-30] MEDS: IPRATROPIUM/ALBUTEROL 0.5-3(2.5)MG/3ML NEB NEB SCH ×4 (01:40→20:42)
[2019-10-30] MEDS: PROPOFOL 10MG/ML 100ML 100 ML IV PRN ×3 (03:01→08:01)
[2019-10-30 05:06] LABS: HEMATOCRIT. 42.7 % (42.0-52.0); HEMOGLOBIN. 13.8 g/dL (14.0-18.0); MEAN CORPUSCULAR HEMOGLOBIN 28.9 pg (28.0-32.0); MEAN CORPUSCULAR VOLUME 89.5 fL (80.0-94.0); MEAN PLATELET VOLUME 10.4 fl (7.4-10.4); PLATELET 179 x1000/uL (130-400); RED BLOOD CELL COUNT 4.77 mill/uL (4.7-6.1); RED CELL DISTRIBUTION WIDTH 15.3 % (11.6-14.6)
[2019-10-30] MEDS: DILTIAZEM HCL 125 MG in DEXT 5% WATER 100 ML IV PRN ×2 (06:31→19:55)
[2019-10-30] MEDS: FUROSEMIDE 40MG/4ML VIAL IV SCH ×2 (08:01→16:00)
[2019-10-30] MEDS: FAMOTIDINE 20MG/2ML VIAL IV SCH (08:01)
[2019-10-30] MEDS: POTASSIUM CHLORIDE 20MEQ TABLET SR PO SCH ×2 (08:02→16:00)
[2019-10-30] MEDS: ASPIRIN 81MG EC TABLET PO SCH (08:02)
[2019-10-30] MEDS: AMIODARONE HCL 200 MG TABLET PO SCH (08:02)
[2019-10-30] MEDS: BUDESONIDE 0.5MG/2ML NEB HHN SCH (08:40)
[2019-10-30 09:14] LABS: BG DEOXYHEMOGLOBIN 3.5 % (0.0-5.0); BG FRACTION INSPIRED OXYGEN 50; BG HCO3 ACT 39.7 mmol/L (22.0-26.0); BG METHEMOGLOBIN 0.3 % (0.0-1.5); BG OXYGEN SATURATION 96.5 % (92.0-98.5); BG OXYHEMOGLOBIN 96.2 % (94.0-97.0); BG PCO2 53.9 mmHg (35.0-45.0); BG PH 7.485 (7.350-7.450); BG PO2 86.1 mmHg (75.0-100.0); BG SAMPLE SITE RIGHT RADIAL; BG TIDAL VOLUME(mL) 500 mL; BG TOTAL HEMOGLOBIN 13.4 g/dL (12.0-18.0); BG VENT MODE VENT - A/C; BG VENT RATE 18 set
[2019-10-30 09:38] LABS: PLATELET ESTIMATE NORMAL
[2019-10-30] MEDS ORDERED: DILTIAZEM HCL 30MG TABLET GT SCH (11:23)
[2019-10-30] MEDS ORDERED: DOCUSATE SODIUM SUGAR FREE 100MG/10ML UDC GT PRN (11:24)
[2019-10-30 12:43] LABS: BG CARBOXYHEMOGLOBIN 0.4 % (0.5-1.5); BG DEOXYHEMOGLOBIN 2.7 % (0.0-5.0); BG FRACTION INSPIRED OXYGEN 50; BG HCO3 ACT 42.2 mmol/L (22.0-26.0); BG METHEMOGLOBIN 0.3 % (0.0-1.5); BG OXYGEN SATURATION 97.3 % (92.0-98.5); BG OXYHEMOGLOBIN 96.6 % (94.0-97.0); BG PH 7.398 (7.350-7.450); BG PO2 100.1 mmHg (75.0-100.0); BG PRESSURE SUPPORT 10; BG SAMPLE SITE RIGHT RADIAL; BG TOTAL HEMOGLOBIN 13.9 g/dL (12.0-18.0); BG VENT MODE VENT - CPAP
[2019-10-30] MEDS ORDERED: PROPOFOL 10MG/ML 100ML 100 ML IV PRN ×2 (14:30→15:15)
[2019-10-30] MEDS: LEVOFLOXACIN 500MG PREMIX 100 ML IV SCH (15:56)
[2019-10-30] MEDS: DILTIAZEM HCL 60MG TABLET GT SCH (18:01)
[2019-10-30] MEDS: CLONIDINE 0.1MG TABLET PO PRN (18:01)
[2019-10-30 18:16] LABS: BG BASE EXCESS 15.3 mmol/L (-2.0-2.0); BG CARBOXYHEMOGLOBIN 0.2 % (0.5-1.5); BG DEOXYHEMOGLOBIN 1.8 % (0.0-5.0); BG FRACTION INSPIRED OXYGEN 50; BG HCO3 ACT 42.5 mmol/L (22.0-26.0); BG METHEMOGLOBIN 0.2 % (0.0-1.5); BG OXYGEN SATURATION 98.2 % (92.0-98.5); BG OXYHEMOGLOBIN 97.8 % (94.0-97.0); BG PH 7.447 (7.350-7.450); BG PO2 124.2 mmHg (75.0-100.0); BG PRESSURE SUPPORT 10; BG SAMPLE SITE RIGHT RADIAL; BG TOTAL HEMOGLOBIN 14.1 g/dL (12.0-18.0); BG VENT MODE VENT - CPAP
[2019-10-31] VITALS (67 sets, daily range): BP systolic 125–194; BP diastolic 58–121
[2019-10-31] MEDS: DILTIAZEM HCL 60MG TABLET GT SCH ×2 (01:09→05:24)
[2019-10-31] MEDS: METHYLPREDNISOLONE SOD SUCC 40 MG/ML VIAL IV SCH ×3 (01:10→17:02)
[2019-10-31] MEDS: ENOXAPARIN 150MG/ML SYR SUBCUT SCH ×2 (01:10→12:38)
[2019-10-31] MEDS: CLONIDINE 0.1MG TABLET PO PRN (01:10)
[2019-10-31] MEDS: IPRATROPIUM/ALBUTEROL 0.5-3(2.5)MG/3ML NEB NEB SCH ×4 (02:11→20:46)
[2019-10-31 05:30] LABS: HEMATOCRIT. 39.4 % (42.0-52.0); HEMOGLOBIN. 12.7 g/dL (14.0-18.0); MEAN CORPUSCULAR HEMOGLOBIN 28.9 pg (28.0-32.0); MEAN CORPUSCULAR VOLUME 89.6 fL (80.0-94.0); MEAN PLATELET VOLUME 10.4 fl (7.4-10.4); PLATELET 167 x1000/uL (130-400); RED CELL DISTRIBUTION WIDTH 14.9 % (11.6-14.6)
[2019-10-31] MEDS: DILTIAZEM HCL 125 MG in DEXT 5% WATER 100 ML IV PRN (06:56)
[2019-10-31 08:05] LABS: BG BASE EXCESS 14.9 mmol/L (-2.0-2.0); BG CARBOXYHEMOGLOBIN 0.4 % (0.5-1.5); BG DEOXYHEMOGLOBIN 2.8 % (0.0-5.0); BG HCO3 ACT 42.5 mmol/L (22.0-26.0); BG METHEMOGLOBIN 0.3 % (0.0-1.5); BG OXYGEN SATURATION 97.2 % (92.0-98.5); BG OXYHEMOGLOBIN 96.5 % (94.0-97.0); BG PCO2 66.3 mmHg (35.0-45.0); BG PH 7.425 (7.350-7.450); BG PO2 96.5 mmHg (75.0-100.0); BG SAMPLE SITE RIGHT RADIAL; BG TOTAL HEMOGLOBIN 13.5 g/dL (12.0-18.0); BG VENT MODE MASK - AEROSOL
[2019-10-31] MEDS: FUROSEMIDE 40MG/4ML VIAL IV SCH (08:30)
[2019-10-31] MEDS: FAMOTIDINE 20MG/2ML VIAL IV SCH (08:30)
[2019-10-31] MEDS: POTASSIUM CHLORIDE 20MEQ TABLET SR PO SCH ×2 (08:31→17:02)
[2019-10-31] MEDS: ASPIRIN 81MG TABLET GT SCH (08:31)
[2019-10-31] MEDS ORDERED: AMIODARONE HCL 200 MG TABLET GT SCH (09:00)
[2019-10-31] MEDS ORDERED: DILTIAZEM HCL 90MG TABLET GT SCH (12:00)
[2019-10-31] MEDS ORDERED: POTASSIUM CHLORIDE 20MEQ TABLET SR PO SCH (13:00)
[2019-10-31 13:18] LABS: PLATELET ESTIMATE NORMAL
[2019-10-31] MEDS: LEVOFLOXACIN 500MG PREMIX 100 ML IV SCH (15:41)
[2019-10-31] MEDS: DILTIAZEM HCL 90MG TABLET PO SCH ×2 (17:27→23:57)
[2019-11-01] VITALS (36 sets, daily range): BP systolic 116–184; BP diastolic 57–139
[2019-11-01] MEDS: ENOXAPARIN 150MG/ML SYR SUBCUT SCH ×2 (00:01→12:22)
[2019-11-01] MEDS: IPRATROPIUM/ALBUTEROL 0.5-3(2.5)MG/3ML NEB NEB SCH ×2 (02:31→09:00)
[2019-11-01] MEDS: METHYLPREDNISOLONE SOD SUCC 40 MG/ML VIAL IV SCH ×2 (05:37→17:01)
[2019-11-01] MEDS: DILTIAZEM HCL 90MG TABLET PO SCH ×4 (05:38→23:27)
[2019-11-01 07:25] LABS: CHLORIDE 98 mEq/L (98-107)
[2019-11-01 07:29] LABS: HEMOGLOBIN. 12.9 g/dL (14.0-18.0); MEAN CORPUSCULAR HEMOGLOBIN 29.2 pg (28.0-32.0); MEAN CORPUSCULAR VOLUME 90.6 fL (80.0-94.0); MEAN PLATELET VOLUME 10.5 fl (7.4-10.4); PLATELET 159 x1000/uL (130-400); RED BLOOD CELL COUNT 4.42 mill/uL (4.7-6.1); RED CELL DISTRIBUTION WIDTH 15.1 % (11.6-14.6)
[2019-11-01] MEDS: FAMOTIDINE 20MG/2ML VIAL IV SCH (08:20)
[2019-11-01] MEDS: POTASSIUM CHLORIDE 20MEQ TABLET SR PO SCH ×2 (08:20→17:01)
[2019-11-01] MEDS: ASPIRIN 81MG TABLET GT SCH (08:20)
[2019-11-01 10:59] LABS: NUCLEATED RED BLOOD CELLS 1 /100 WBC; PLATELET ESTIMATE NORMAL
[2019-11-01] MEDS ORDERED: CLONIDINE 0.1MG TABLET PO SCH (12:00)
[2019-11-01] MEDS ORDERED: POTASSIUM CHLORIDE 20MEQ TABLET SR PO NR (12:15)
[2019-11-01] MEDS ORDERED: FUROSEMIDE 40MG/4ML VIAL IVP SCH (14:45)
[2019-11-01] MEDS: IPRATROPIUM/ALBUTEROL 0.5-3(2.5)MG/3ML NEB NEB PRN (21:02)
[2019-11-01] MEDS: DEXT 5%/0.45% NACL 1000ML 1,000 ML IV SCH (23:28)
[2019-11-02] VITALS (35 sets, daily range): BP systolic 109–181; BP diastolic 61–91
[2019-11-02] MEDS: METHYLPREDNISOLONE SOD SUCC 40 MG/ML VIAL IV SCH ×2 (05:12→17:50)
[2019-11-02] MEDS: DILTIAZEM HCL 90MG TABLET PO SCH ×2 (05:12→13:01)
[2019-11-02 06:32] LABS: CHLORIDE 101 mEq/L (98-107); HEMATOCRIT 37.9 % (42.0-52.0); HEMOGLOBIN 12.4 g/dL (14.0-18.0); MEAN CORPUSCULAR HEMOGLOBIN 29.3 pg (28.0-32.0); MEAN CORPUSCULAR VOLUME 89.9 fL (80.0-94.0); PLATELET 151 x1000/uL (130-400); RED BLOOD CELL COUNT 4.22 mill/uL (4.7-6.1); RED CELL DISTRIBUTION WIDTH 14.9 % (11.6-14.6)
[2019-11-02 06:34] LABS: INR 1.1; PROTHROMBIN TIME 11.8 sec (9.6-11.0)
[2019-11-02 06:39] LABS: CREATINE KINASE 83 IU/L (39-308)
[2019-11-02 06:40] LABS: CREATINE KINASE MB FRACTION < 1.0 ng/mL (0.5-3.6)
[2019-11-02] MEDS: POTASSIUM CHLORIDE 20MEQ TABLET SR PO SCH ×2 (08:46→17:00)
[2019-11-02] MEDS: FAMOTIDINE 20MG/2ML VIAL IV SCH (08:46)
[2019-11-02] MEDS: ASPIRIN 81MG TABLET GT SCH (08:46)
[2019-11-02] MEDS ORDERED: LIDOCAINE HCL 1% 20ML VIAL (Pyxis) INJ ONE (11:23)
[2019-11-02] MEDS ORDERED: MIDAZOLAM HCL 2 MG/2 ML VIAL ONE (11:23)
[2019-11-02] MEDS ORDERED: FENTANYL CITRATE/PF 50MCG/ML 2ML VIAL ONE (11:23)
[2019-11-02] MEDS ORDERED: ASPIRIN/SOD BICARB/CITRIC ACID 324MG TAB EFF ONE (11:24)
[2019-11-02] MEDS ORDERED: IODIXANOL 320MG/ML 100 ML BOTTLE IV ONE (11:24)
[2019-11-02] MEDS ORDERED: DILTIAZEM HCL 5MG/ML 5ML VIAL IV ONE (12:36)
[2019-11-02] MEDS ORDERED: ATROPINE SULFATE 1MG/10ML SYR IV PRN (12:45)
[2019-11-02] MEDS ORDERED: ACETAMINOPHEN 325MG TABLET PO PRN (12:45)
[2019-11-02] MEDS ORDERED: SODIUM CHLORIDE 0.45% IV SCH (13:00)
[2019-11-02] MEDS: DEXT 5%/0.45% NACL 1000ML 1,000 ML IV SCH (17:51)
[2019-11-02] MEDS: DILTIAZEM HCL 60MG TABLET PO SCH ×2 (17:51→23:54)
[2019-11-02] MEDS ORDERED: ENOXAPARIN 120MG/0.8ML SYR SUBCUT ONE (20:00)
[2019-11-02] MEDS: GUAIFENESIN 200MG/10ML SUGAR FREE UDC PO PRN (22:38)
[2019-11-03] VITALS (32 sets, daily range): BP systolic 124–178; BP diastolic 53–109
[2019-11-03] MEDS: METHYLPREDNISOLONE SOD SUCC 40 MG/ML VIAL IV SCH ×2 (04:47→16:54)
[2019-11-03] MEDS: DILTIAZEM HCL 60MG TABLET PO SCH ×3 (05:29→16:54)
[2019-11-03] MEDS: GUAIFENESIN 200MG/10ML SUGAR FREE UDC PO PRN ×3 (05:30→21:06)
[2019-11-03 06:11] LABS: HEMOGLOBIN. 11.8 g/dL (14.0-18.0); MEAN CORPUSCULAR VOLUME 90.7 fL (80.0-94.0); MEAN PLATELET VOLUME 10.5 fl (7.4-10.4); PLATELET 145 x1000/uL (130-400); RED BLOOD CELL COUNT 4.08 mill/uL (4.7-6.1); RED CELL DISTRIBUTION WIDTH 14.8 % (11.6-14.6)
[2019-11-03 06:22] LABS: CHLORIDE 104 mEq/L (98-107)
[2019-11-03 07:26] LABS: PLATELET ESTIMATE NORMAL
[2019-11-03] MEDS: IPRATROPIUM/ALBUTEROL 0.5-3(2.5)MG/3ML NEB NEB PRN (08:54)
[2019-11-03] MEDS: POTASSIUM CHLORIDE 20MEQ TABLET SR PO SCH ×2 (08:56→16:11)
[2019-11-03] MEDS: ASPIRIN 81MG TABLET GT SCH (08:56)
[2019-11-03] MEDS: FAMOTIDINE 20MG/2ML VIAL IV SCH (08:56)
[2019-11-03] MEDS: DEXT 5%/0.45% NACL 1000ML 1,000 ML IV SCH (08:57)
[2019-11-03] MEDS ORDERED: ENOXAPARIN 150MG/ML SYR SUBCUT SCH (09:00)
[2019-11-03] MEDS: LOSARTAN POTASSIUM 25 MG TABLET PO SCH (09:00)
[2019-11-04] VITALS (26 sets, daily range): BP systolic 101–164; BP diastolic 52–83
[2019-11-04] MEDS: DILTIAZEM HCL 60MG TABLET PO SCH ×3 (00:19→12:00)
[2019-11-04] MEDS: DEXT 5%/0.45% NACL 1000ML 1,000 ML IV SCH (02:16)
[2019-11-04] MEDS: GUAIFENESIN 200MG/10ML SUGAR FREE UDC PO PRN (02:19)
[2019-11-04] MEDS: METHYLPREDNISOLONE SOD SUCC 40 MG/ML VIAL IV SCH ×2 (04:24→17:32)
[2019-11-04 06:06] LABS: HEMATOCRIT. 33.6 % (42.0-52.0); HEMOGLOBIN. 10.9 g/dL (14.0-18.0); MEAN CORPUSCULAR HEMOGLOBIN 29.5 pg (28.0-32.0); MEAN CORPUSCULAR VOLUME 90.6 fL (80.0-94.0); MEAN PLATELET VOLUME 10.3 fl (7.4-10.4); PLATELET 153 x1000/uL (130-400); RED BLOOD CELL COUNT 3.71 mill/uL (4.7-6.1); RED CELL DISTRIBUTION WIDTH 14.5 % (11.6-14.6)
[2019-11-04 06:13] LABS: CHLORIDE 106 mEq/L (98-107)
[2019-11-04] MEDS ORDERED: LIDOCAINE HCL 1% 20ML VIAL (Pyxis) INJ ONE ×2 (07:21→08:01)
[2019-11-04 07:51] LABS: PLATELET ESTIMATE NORMAL
[2019-11-04] MEDS ORDERED: FENTANYL CITRATE/PF 50MCG/ML 2ML VIAL ONE (07:53)
[2019-11-04] MEDS ORDERED: MIDAZOLAM HCL 2 MG/2 ML VIAL ONE (07:53)
[2019-11-04] MEDS ORDERED: SUCCINYLCHOLINE CHLORIDE 200MG/10ML IV ONE (07:58)
[2019-11-04] MEDS ORDERED: PROPOFOL 200MG/20ML VIAL IV ONE (08:01)
[2019-11-04] MEDS ORDERED: SODIUM CHLORIDE 0.9% 10ML VIAL ONE ×2 (08:03→08:07)
[2019-11-04] MEDS ORDERED: EPHEDRINE SULFATE 50MG/ML VIAL ONE (08:03)
[2019-11-04] MEDS ORDERED: PHENYLEPHRINE HCL 10 MG/ML 1ML (IV VIAL) IV ONE (08:06)
[2019-11-04] MEDS ORDERED: ROCURONIUM BROMIDE 10MG/ML VIAL 5ML IV ONE (08:15)
[2019-11-04] MEDS ORDERED: CEFAZOLIN SODIUM 1000MG/VIAL ONE (08:44)
[2019-11-04] MEDS: FAMOTIDINE 20MG/2ML VIAL IV SCH (09:00)
[2019-11-04] MEDS: POTASSIUM CHLORIDE 20MEQ TABLET SR PO SCH ×2 (09:00→17:00)
[2019-11-04] MEDS ORDERED: CLINDAMYCIN 900 MG in DEXTROSE 5% WATER 50 ML IV ONE (09:15)
[2019-11-04] MEDS ORDERED: CLINDAMYCIN 900 MG PREMIX 50 ML IV ONE (09:30)
[2019-11-04] MEDS ORDERED: HEPARIN SODIUM 1,000 UNIT/1ML VIAL IV ONE ×2 (09:58→10:57)
[2019-11-04] MEDS ORDERED: ATROPINE SULFATE 1MG/10ML SYR ONE (10:08)
[2019-11-04] MEDS: LOSARTAN POTASSIUM 25 MG TABLET PO SCH (13:09)
[2019-11-05] VITALS (14 sets, daily range): BP systolic 101–161; BP diastolic 35–89
[2019-11-05] MEDS: METHYLPREDNISOLONE SOD SUCC 40 MG/ML VIAL IV SCH ×2 (05:51→17:50)
[2019-11-05 06:24] LABS: HEMATOCRIT. 30.2 % (42.0-52.0); HEMOGLOBIN. 9.6 g/dL (14.0-18.0); MEAN CORPUSCULAR HEMOGLOBIN 28.9 pg (28.0-32.0); MEAN PLATELET VOLUME 9.9 fl (7.4-10.4); PLATELET 141 x1000/uL (130-400); RED BLOOD CELL COUNT 3.32 mill/uL (4.7-6.1); RED CELL DISTRIBUTION WIDTH 14.7 % (11.6-14.6)
[2019-11-05 06:34] LABS: CHLORIDE 106 mEq/L (98-107)
[2019-11-05] MEDS: ACETAMINOPHEN 325MG TABLET PO PRN (08:40)
[2019-11-05] MEDS: LOSARTAN POTASSIUM 25 MG TABLET PO SCH (08:40)
[2019-11-05] MEDS: POTASSIUM CHLORIDE 20MEQ TABLET SR PO SCH ×2 (08:40→17:00)
[2019-11-05] MEDS: FAMOTIDINE 20MG/2ML VIAL IV SCH (08:41)
[2019-11-05 11:47] LABS: PLATELET ESTIMATE NORMAL
[2019-11-05] MEDS: METOPROLOL TARTRATE 25MG TABLET PO SCH (20:22)
[2019-11-06] VITALS (10 sets, daily range): BP systolic 131–167; BP diastolic 61–106
[2019-11-06] MEDS: METHYLPREDNISOLONE SOD SUCC 40 MG/ML VIAL IV SCH ×2 (05:34→17:00)
[2019-11-06 08:05] LABS: HEMATOCRIT. 29.2 % (42.0-52.0); HEMOGLOBIN. 9.4 g/dL (14.0-18.0); MEAN CORPUSCULAR VOLUME 90.3 fL (80.0-94.0); MEAN PLATELET VOLUME 10.1 fl (7.4-10.4); PLATELET 140 x1000/uL (130-400); RED BLOOD CELL COUNT 3.23 mill/uL (4.7-6.1); RED CELL DISTRIBUTION WIDTH 14.9 % (11.6-14.6)
[2019-11-06] MEDS: POTASSIUM CHLORIDE 20MEQ TABLET SR PO SCH ×2 (08:22→17:00)
[2019-11-06] MEDS: FAMOTIDINE 20MG TABLET PO SCH (08:22)
[2019-11-06] MEDS: LOSARTAN POTASSIUM 25 MG TABLET PO SCH (08:23)
[2019-11-06] MEDS: METOPROLOL TARTRATE 25MG TABLET PO SCH ×2 (08:23→20:41)
[2019-11-06 08:29] LABS: CHLORIDE 106 mEq/L (98-107)
[2019-11-06] MEDS ORDERED: IPRATROPIUM/ALBUTEROL 0.5-3(2.5)MG/3ML NEB HHN NR (13:00)
[2019-11-06 14:12] LABS: BG BASE EXCESS 3.3 mmol/L (-2.0-2.0); BG CARBOXYHEMOGLOBIN 0.5 % (0.5-1.5); BG DEOXYHEMOGLOBIN 3.7 % (0.0-5.0); BG FRACTION INSPIRED OXYGEN 28; BG HCO3 ACT 30.4 mmol/L (22.0-26.0); BG METHEMOGLOBIN 0.4 % (0.0-1.5); BG OXYGEN SATURATION 96.3 % (92.0-98.5); BG OXYHEMOGLOBIN 95.4 % (94.0-97.0); BG PCO2 60.3 mmHg (35.0-45.0); BG PH 7.321 (7.350-7.450); BG PO2 94.4 mmHg (75.0-100.0); BG SAMPLE SITE RIGHT RADIAL; BG TOTAL HEMOGLOBIN 10.4 g/dL (12.0-18.0); BG VENT MODE NASAL CANNULA
[2019-11-06 16:16] LABS: PLATELET ESTIMATE NORMAL
[2019-11-06] MEDS: AZTREONAM 1 G in DEXTROSE 5% WATER 50 ML IV SCH (16:34)
[2019-11-06] MEDS: IPRATROPIUM/ALBUTEROL 0.5-3(2.5)MG/3ML NEB HHN SCH (20:53)
[2019-11-06] MEDS: ACETAMINOPHEN 325MG TABLET PO PRN (23:26)
[2019-11-07] VITALS (12 sets, daily range): BP systolic 123–162; BP diastolic 61–79
[2019-11-07] MEDS: IPRATROPIUM/ALBUTEROL 0.5-3(2.5)MG/3ML NEB HHN SCH ×4 (01:01→20:38)
[2019-11-07] MEDS: METHYLPREDNISOLONE SOD SUCC 40 MG/ML VIAL IV SCH ×2 (05:29→17:15)
[2019-11-07] MEDS: AZTREONAM 1 G in DEXTROSE 5% WATER 50 ML IV SCH ×2 (05:44→17:15)
[2019-11-07 06:59] LABS: HEMATOCRIT. 29.4 % (42.0-52.0); HEMOGLOBIN. 9.4 g/dL (14.0-18.0); MEAN CORPUSCULAR HEMOGLOBIN 29.2 pg (28.0-32.0); MEAN PLATELET VOLUME 10.2 fl (7.4-10.4); PLATELET 135 x1000/uL (130-400); RED BLOOD CELL COUNT 3.23 mill/uL (4.7-6.1); RED CELL DISTRIBUTION WIDTH 14.8 % (11.6-14.6)
[2019-11-07 07:52] LABS: CHLORIDE 105 mEq/L (98-107)
[2019-11-07] MEDS: LOSARTAN POTASSIUM 25 MG TABLET PO SCH (08:38)
[2019-11-07] MEDS: FAMOTIDINE 20MG TABLET PO SCH (08:38)
[2019-11-07] MEDS: POTASSIUM CHLORIDE 20MEQ TABLET SR PO SCH ×2 (08:38→17:15)
[2019-11-07] MEDS: METOPROLOL TARTRATE 25MG TABLET PO SCH (08:39)
[2019-11-07] MEDS: CLONIDINE 0.1MG TABLET PO PRN (11:48)
[2019-11-07] MEDS ORDERED: LOSARTAN POTASSIUM 50 MG TABLET PO SCH (12:30)
[2019-11-07 13:14] LABS: PLATELET ESTIMATE NORMAL
[2019-11-07] MEDS ORDERED: LACTULOSE 20G/30ML UDC PO NR (13:15)
[2019-11-08] VITALS (12 sets, daily range): BP systolic 135–160; BP diastolic 61–76
[2019-11-08] MEDS: IPRATROPIUM/ALBUTEROL 0.5-3(2.5)MG/3ML NEB HHN SCH ×4 (00:37→20:07)
[2019-11-08] MEDS: AZTREONAM 1 G in DEXTROSE 5% WATER 50 ML IV SCH ×2 (05:44→18:45)
[2019-11-08] MEDS: METHYLPREDNISOLONE SOD SUCC 40 MG/ML VIAL IV SCH ×2 (05:44→18:44)
[2019-11-08 06:13] LABS: CHLORIDE 107 mEq/L (98-107)
[2019-11-08 06:46] LABS: HEMATOCRIT. 29.1 % (42.0-52.0); HEMOGLOBIN. 9.5 g/dL (14.0-18.0); MEAN CORPUSCULAR HEMOGLOBIN 29.6 pg (28.0-32.0); MEAN CORPUSCULAR VOLUME 90.5 fL (80.0-94.0); MEAN PLATELET VOLUME 9.6 fl (7.4-10.4); PLATELET 154 x1000/uL (130-400); RED BLOOD CELL COUNT 3.22 mill/uL (4.7-6.1); RED CELL DISTRIBUTION WIDTH 14.9 % (11.6-14.6)
[2019-11-08] MEDS: FAMOTIDINE 20MG TABLET PO SCH (08:44)
[2019-11-08] MEDS: POTASSIUM CHLORIDE 20MEQ TABLET SR PO SCH ×2 (08:44→18:44)
[2019-11-08] MEDS: LOSARTAN POTASSIUM 50 MG TABLET PO SCH (08:44)
[2019-11-08] MEDS: GUAIFENESIN 200MG/10ML SUGAR FREE UDC PO PRN (08:45)
[2019-11-08] MEDS: ACETAMINOPHEN 325MG TABLET PO PRN (09:10)
[2019-11-08 10:33] LABS: PLATELET ESTIMATE NORMAL
[2019-11-08] MEDS: NA PHOS,M-B/NA PHOS,DI-BA ENEMA 118ML PR NR ×2 (11:05→11:14)
[2019-11-08] MEDS ORDERED: SORBITOL 70% SOLN 30ML PO NR (11:15)
[2019-11-08] MEDS ORDERED: HYDROCODONE/ACETAMINOPHEN 5/325MG TABLET PO PRN (20:00)
[2019-11-09] VITALS (10 sets, daily range): BP systolic 138–155; BP diastolic 64–80
[2019-11-09] MEDS: IPRATROPIUM/ALBUTEROL 0.5-3(2.5)MG/3ML NEB HHN SCH ×3 (01:16→13:37)
[2019-11-09] MEDS: METHYLPREDNISOLONE SOD SUCC 40 MG/ML VIAL IV SCH (04:53)
[2019-11-09] MEDS: AZTREONAM 1 G in DEXTROSE 5% WATER 50 ML IV SCH (05:44)
[2019-11-09 06:07] LABS: HEMATOCRIT. 29.2 % (42.0-52.0); HEMOGLOBIN. 9.5 g/dL (14.0-18.0); MEAN CORPUSCULAR HEMOGLOBIN 29.3 pg (28.0-32.0); MEAN PLATELET VOLUME 9.6 fl (7.4-10.4); PLATELET 152 x1000/uL (130-400); RED BLOOD CELL COUNT 3.25 mill/uL (4.7-6.1); RED CELL DISTRIBUTION WIDTH 14.9 % (11.6-14.6)
[2019-11-09 07:16] LABS: CHLORIDE 105 mEq/L (98-107)
[2019-11-09] MEDS: LOSARTAN POTASSIUM 50 MG TABLET PO SCH (08:45)
[2019-11-09] MEDS: FAMOTIDINE 20MG TABLET PO SCH (08:45)
[2019-11-09 13:56] LABS: PLATELET ESTIMATE NORMAL
[2019-11-09] MEDS ORDERED: SODIUM POLYSTYRENE SULFONATE 15 G/60 ML BOT PO SCH (15:00)
[2019-11-09 16:39] LABS: CHLORIDE 105 mEq/L (98-107)
== END 2019-11-09 17:42 | DRG 981 ==
LOC: ER 08:54 → MICUSO 11:05 → ENRESERV 11:15 → CVICU 10-31 13:50 → 3WST 11-05 00:26
PROVIDERS: ADMIT Internal Medicine; ATTEND Internal Medicine
PROC: 02HV33Z Insertion of Infusion Device into Superior Vena Cava, Percutaneous Approach (ICD-10-PCS; 2019-10-27)
PROC: B548ZZA Ultrasonography of Superior Vena Cava, Guidance (ICD-10-PCS; 2019-10-27)
PROC: B5181ZA Fluoroscopy of Superior Vena Cava using Low Osmolar Contrast, Guidance (ICD-10-PCS; 2019-10-27)
PROC: 0BH17EZ Insertion of Endotracheal Airway into Trachea, Via Natural or Artificial Opening (ICD-10-PCS; 2019-10-27)
PROC: 5A1945Z Respiratory Ventilation, 24-96 Consecutive Hours (ICD-10-PCS; 2019-10-27)
PROC: 5A09357 Assistance with Respiratory Ventilation, Less than 24 Consecutive Hours, Continuous Positive Airway Pressure (ICD-10-PCS; 2019-10-27)
PROC: 4A023N7 Measurement of Cardiac Sampling and Pressure, Left Heart, Percutaneous Approach (ICD-10-PCS; 2019-11-02)
PROC: B2111ZZ Fluoroscopy of Multiple Coronary Arteries using Low Osmolar Contrast (ICD-10-PCS; 2019-11-02)
PROC: 4A033BC Measurement of Arterial Pressure, Coronary, Percutaneous Approach (ICD-10-PCS; 2019-11-02)
PROC: 02583ZZ Destruction of Conduction Mechanism, Percutaneous Approach (ICD-10-PCS; principal; 2019-11-04)
PROC: 4A023FZ Measurement of Cardiac Rhythm, Percutaneous Approach (ICD-10-PCS; 2019-11-04)
PROC: 4A0234Z Measurement of Cardiac Electrical Activity, Percutaneous Approach (ICD-10-PCS; 2019-11-04)
PROC: 02K83ZZ Map Conduction Mechanism, Percutaneous Approach (ICD-10-PCS; 2019-11-04)
PROC: B245ZZZ Ultrasonography of Left Heart (ICD-10-PCS; 2019-11-04)
PROC: 5A09357 Assistance with Respiratory Ventilation, Less than 24 Consecutive Hours, Continuous Positive Airway Pressure (ICD-10-PCS; 2019-11-06)
PROC: 5A09357 Assistance with Respiratory Ventilation, Less than 24 Consecutive Hours, Continuous Positive Airway Pressure (ICD-10-PCS; 2019-11-07)
PROC: 5A09357 Assistance with Respiratory Ventilation, Less than 24 Consecutive Hours, Continuous Positive Airway Pressure (ICD-10-PCS; 2019-11-08)
PROC: 5A09357 Assistance with Respiratory Ventilation, Less than 24 Consecutive Hours, Continuous Positive Airway Pressure (ICD-10-PCS; 2019-11-09)
DX: J96.01 Acute respiratory failure with hypoxia (principal); I21.4 Non-ST elevation (NSTEMI) myocardial infarction; I50.43 Acute on chronic combined systolic (congestive) and diastolic (congestive) heart failure; G93.41 Metabolic encephalopathy; I13.0 Hypertensive heart and chronic kidney disease with heart failure and stage 1 through stage 4 chronic kidney disease, or unspecified chronic kidney disease; M62.82 Rhabdomyolysis; I48.92 Unspecified atrial flutter; E66.2 Morbid (severe) obesity with alveolar hypoventilation; J44.1 Chronic obstructive pulmonary disease with (acute) exacerbation; E87.2 Acidosis; E46 Unspecified protein-calorie malnutrition; I47.2 Ventricular tachycardia; J44.0 Chronic obstructive pulmonary disease with (acute) lower respiratory infection; I42.8 Other cardiomyopathies; Z68.41 Body mass index [BMI] 40.0-44.9, adult; L03.119 Cellulitis of unspecified part of limb; J96.02 Acute respiratory failure with hypercapnia; N18.9 Chronic kidney disease, unspecified; I48.91 Unspecified atrial fibrillation; E87.5 Hyperkalemia; E03.9 Hypothyroidism, unspecified; E11.51 Type 2 diabetes mellitus with diabetic peripheral angiopathy without gangrene; I25.10 Atherosclerotic heart disease of native coronary artery without angina pectoris; D64.9 Anemia, unspecified; E11.22 Type 2 diabetes mellitus with diabetic chronic kidney disease; I45.9 Conduction disorder, unspecified; X58.XXXA Exposure to other specified factors, initial encounter; I87.2 Venous insufficiency (chronic) (peripheral); Z20.828 Contact with and (suspected) exposure to other viral communicable diseases; L85.3 Xerosis cutis; I34.0 Nonrheumatic mitral (valve) insufficiency; S40.021A Contusion of right upper arm, initial encounter; S81.811A Laceration without foreign body, right lower leg, initial encounter; Z79.899 Other long term (current) drug therapy; Y93.89 Activity, other specified; Y92.89 Other specified places as the place of occurrence of the external cause; Y99.8 Other external cause status; Z88.0 Allergy status to penicillin; Z87.898 Personal history of other specified conditions
CPT/HCPCS: 36415; 36600; 71045; 71250; 72192; 73700; 76937; 80048; 80053; 80061; 80305; 81003; 82375; 82550; 82553; 82805; 83605; 83735; 83880; 84132; 84145; 84439; 84443; 84478; 84484; 85025; 85027; 86850; 86900; 87070; 92610; 93005; 93306; 93458; 93613; 93621; 93653; 93662; 93923; 93970; 94640; 96374; 97022; 97110; 97162; 97164; 99291; C1725; C1731; C1732; C1759; C1769; C1887; C1893; J0330; J0461; J0690; J1644; J1650; J1940; J1956; J2250; J2370; J2704; J2920; J2930; J3010; J3490; J7060; J7626; Q9967; U0003-CS

== ENCOUNTER 2020-04-19 17:50 | Inpatient (IN) | payer MEDICARE, MEDICAID ==
[~2020-04-19] VITALS: Ht 193 cm; Wt 137.4 kg
[2020-04-19] MEDS ORDERED: SODIUM CHLORIDE 0.9% 1,000 ML IV ONE (21:00)
[2020-04-19 21:42] LABS: BASOPHILS % 0.2 % (0.0-2.0); EOSINOPHILS % 1.2 % (0.0-5.0); HEMATOCRIT. 40.2 % (42.0-52.0); HEMOGLOBIN. 12.1 g/dL (14.0-18.0); LYMPHOCYTES % 9.1 % (20.0-50.0); MEAN CORPUSCULAR HEMOGLOBIN 28.6 pg (28.0-32.0); MEAN CORPUSCULAR VOLUME 95.1 fL (80.0-94.0); MEAN PLATELET VOLUME 9.8 fl (7.4-10.4); NEUTROPHILS % 81.5 % (40.0-76.0); PLATELET 164 x1000/uL (130-400); RED BLOOD CELL COUNT 4.23 mill/uL (4.7-6.1); RED CELL DISTRIBUTION WIDTH 15.6 % (11.6-14.6)
[2020-04-19 21:46] LABS: CHLORIDE 103 mEq/L (98-107)
[2020-04-19 21:49] LABS: CLARITY URINE CLEAR (CLEAR); COLOR URINE YELLOW (YELLOW); KETONES URINE NEGATIVE (NEGATIVE); LEUKOCYTE ESTERASE URINE TRACE (NEGATIVE); NITRITE URINE NEGATIVE (NEGATIVE); OCCULT BLOOD URINE NEGATIVE (NEGATIVE); PROTEIN URINE TRACE (NEGATIVE)
[2020-04-19 21:55] LABS: INR 1.1; PROTHROMBIN TIME 11.4 sec (9.6-11.0)
[2020-04-19] MEDS ORDERED: SODIUM POLYSTYRENE SULFONATE 15 G/60 ML BOT PO ONE (23:45)
[2020-04-19] MEDS ORDERED: LEVOFLOXACIN 750MG PREMIX 150 ML IV ONE (23:45)
[2020-04-19] MEDS ORDERED: INSULIN REGULAR (HUMULIN R) 300UNITS/3ML VIAL IV ONE (23:45)
[2020-04-19] MEDS ORDERED: SODIUM BICARBONATE 8.4% 1 MEQ/ML 50ML SYR IV ONE (23:45)
[2020-04-19] MEDS ORDERED: DEXTROSE 50% WATER 50ML SYRINGE IV ONE (23:45)
[2020-04-20] MEDS ORDERED: ASPIRIN 81MG TABLET PO ONE (01:00)
[2020-04-20 09:42] LABS: BASOPHILS % 0.6 % (0.0-2.0); EOSINOPHILS % 1.8 % (0.0-5.0); HEMATOCRIT. 34.7 % (42.0-52.0); HEMOGLOBIN. 10.6 g/dL (14.0-18.0); LYMPHOCYTES % 8.9 % (20.0-50.0); MEAN CORPUSCULAR HEMOGLOBIN 28.2 pg (28.0-32.0); MEAN CORPUSCULAR VOLUME 92.9 fL (80.0-94.0); MEAN PLATELET VOLUME 9.3 fl (7.4-10.4); MONOCYTES % 8.7 % (2.0-8.0); PLATELET 162 x1000/uL (130-400); RED BLOOD CELL COUNT 3.74 mill/uL (4.7-6.1); RED CELL DISTRIBUTION WIDTH 15.2 % (11.6-14.6)
[2020-04-20 09:48] LABS: CHLORIDE 103 mEq/L (98-107)
[2020-04-21] MEDS ORDERED: LORAZEPAM 2MG/ML CPJ IV PRN (09:15)
[2020-04-21] MEDS ORDERED: ONDANSETRON HCL 4MG/2ML INJ IV PRN (09:15)
[2020-04-21] MEDS ORDERED: IPRATROPIUM/ALBUTEROL 0.5-3(2.5)MG/3ML NEB HHN PRN (09:15)
[2020-04-21] MEDS ORDERED: DOCUSATE SODIUM 100MG CAPSULE PO PRN (09:15)
[2020-04-21] MEDS ORDERED: NA PHOS,M-B/NA PHOS,DI-BA ENEMA 118ML PR PRN (09:15)
[2020-04-21] MEDS ORDERED: ACETAMINOPHEN 325MG TABLET PO PRN (09:15)
[2020-04-21] MEDS ORDERED: MORPHINE SULFATE 2 MG/ML CPJ (NOT FOR IM USE) IV PRN (09:15)
[2020-04-21] MEDS ORDERED: DEXTROSE 50% WATER 50ML SYRINGE IV PRN (09:15)
[2020-04-21] MEDS ORDERED: ENOXAPARIN 40MG/0.4ML SYR SUBCUT SCH (09:15)
[2020-04-21] MEDS ORDERED: GUAIFENESIN 200MG/10ML SUGAR FREE UDC PO PRN (09:15)
[2020-04-21] MEDS ORDERED: MAGNESIUM/ALUMINUM HYDROXIDE/SIMETHICONE 30ML UDC PO PRN (09:15)
[2020-04-21] MEDS ORDERED: CLONIDINE 0.1MG TABLET PO PRN (09:15)
[2020-04-21] MEDS ORDERED: HYDROCODONE/ACETAMINOPHEN 10/325MG TABLET PO PRN (09:15)
[2020-04-21] MEDS ORDERED: DIPHENHYDRAMINE 50MG/ML VIAL IV PRN (09:15)
[2020-04-21 11:50] VITALS: BP 184/80
[2020-04-21] MEDS: ENOXAPARIN 40MG/0.4ML SYR SUBCUT SCH ×2 (12:00→21:37)
[2020-04-21] MEDS: BLOOD SUGAR DIAGNOSTIC STRIP TEST SCH ×3 (12:20→20:48)
[2020-04-21] MEDS: INSULIN LISPRO 100 UNITS/ML SUBCUT SCH ×3 (12:50→20:48)
[2020-04-21] MEDS: SODIUM CHLORIDE 0.9% INJ 3ML FLUSH IVF SCH ×2 (14:00→21:38)
[2020-04-21 17:04] LABS: CREATINE KINASE MB FRACTION 3.5 ng/mL (0.5-3.6)
[2020-04-21] MEDS ORDERED: LEVOFLOXACIN 500MG PREMIX 100 ML IV SCH (18:00)
[2020-04-21] MEDS: FUROSEMIDE 40MG/4ML VIAL IVP SCH (18:51)
[2020-04-21] MEDS: AMIODARONE HCL 200 MG TABLET PO SCH (18:51)
[2020-04-21 20:00] VITALS: BP 127/67
[2020-04-21] MEDS ORDERED: SODIUM CHLORIDE 0.45% 1,000 ML IV ONE (20:00)
[2020-04-21] MEDS: LEVOFLOXACIN 500MG PREMIX 100 ML IV SCH (21:18)
[2020-04-21] MEDS: METOPROLOL TARTRATE 25MG TABLET PO SCH (21:36)
[2020-04-22] VITALS: BP 111/54
[2020-04-22 00:22] LABS: CREATINE KINASE MB FRACTION 2.9 ng/mL (0.5-3.6)
[2020-04-22 05:20] VITALS: BP 151/59
[2020-04-22] MEDS: SODIUM CHLORIDE 0.9% INJ 3ML FLUSH IVF SCH ×3 (06:00→21:35)
[2020-04-22] MEDS: INSULIN LISPRO 100 UNITS/ML SUBCUT SCH ×4 (07:50→20:06)
[2020-04-22 07:54] LABS: BASOPHILS % 0.4 % (0.0-2.0); EOSINOPHILS % 2.3 % (0.0-5.0); HEMATOCRIT. 36.8 % (42.0-52.0); HEMOGLOBIN. 11.2 g/dL (14.0-18.0); LYMPHOCYTES % 11.4 % (20.0-50.0); MEAN CORPUSCULAR VOLUME 92.3 fL (80.0-94.0); MEAN PLATELET VOLUME 9.7 fl (7.4-10.4); MONOCYTES % 11.2 % (2.0-8.0); NEUTROPHILS % 74.7 % (40.0-76.0); PLATELET 147 x1000/uL (130-400); RED BLOOD CELL COUNT 3.99 mill/uL (4.7-6.1); RED CELL DISTRIBUTION WIDTH 15.9 % (11.6-14.6)
[2020-04-22] MEDS: BLOOD SUGAR DIAGNOSTIC STRIP TEST SCH ×4 (08:07→20:06)
[2020-04-22 08:22] VITALS: BP 160/48
[2020-04-22 08:49] LABS: CHLORIDE 103 mEq/L (98-107)
[2020-04-22 09:00] LABS: LDL CHOLESTEROL 37 mg/dL (5-100)
[2020-04-22 09:02] LABS: HDL CHOLESTEROL 42 mg/dL (40-59)
[2020-04-22 09:03] LABS: T4 FREE 0.88 ng/dL (0.76-1.46); VITAMIN B12 SERUM 462 pg/mL (211-911)
[2020-04-22] MEDS: AMIODARONE HCL 200 MG TABLET PO SCH (09:08)
[2020-04-22] MEDS: FUROSEMIDE 40MG/4ML VIAL IVP SCH (09:08)
[2020-04-22] MEDS: ENOXAPARIN 40MG/0.4ML SYR SUBCUT SCH ×2 (09:08→20:10)
[2020-04-22] MEDS: METOPROLOL TARTRATE 25MG TABLET PO SCH ×2 (09:11→20:12)
[2020-04-22] MEDS: LOPERAMIDE HCL 2MG CAPSULE PO PRN ×2 (09:52→14:52)
[2020-04-22 12:16] VITALS: BP 120/50
[2020-04-22 16:20] VITALS: BP 109/61
[2020-04-22 17:24] LABS: CREATINE KINASE MB FRACTION 2.5 ng/mL (0.5-3.6)
[2020-04-22 20:00] VITALS: BP 133/53
[2020-04-22] MEDS: LEVOFLOXACIN 500MG PREMIX 100 ML IV SCH (20:09)
[2020-04-22 23:40] LABS: CREATINE KINASE MB FRACTION 2.2 ng/mL (0.5-3.6)
[2020-04-23] VITALS (7 sets, daily range): BP systolic 119–150; BP diastolic 51–66
[2020-04-23] MEDS ORDERED: MAGNESIUM 2 G PREMIX 50 ML IV SCH
[2020-04-23] MEDS: SODIUM CHLORIDE 0.9% INJ 3ML FLUSH IVF SCH ×3 (06:05→20:41)
[2020-04-23] MEDS: BLOOD SUGAR DIAGNOSTIC STRIP TEST SCH ×4 (06:31→20:40)
[2020-04-23] MEDS: INSULIN LISPRO 100 UNITS/ML SUBCUT SCH ×4 (06:32→21:00)
[2020-04-23 07:12] LABS: CREATINE KINASE MB FRACTION 1.7 ng/mL (0.5-3.6)
[2020-04-23] MEDS: AMIODARONE HCL 200 MG TABLET PO SCH (08:43)
[2020-04-23] MEDS: METOPROLOL TARTRATE 25MG TABLET PO SCH ×2 (08:43→21:26)
[2020-04-23] MEDS: FUROSEMIDE 40MG/4ML VIAL IVP SCH (08:43)
[2020-04-23] MEDS: ENOXAPARIN 40MG/0.4ML SYR SUBCUT SCH (08:44)
[2020-04-23] MEDS: LOPERAMIDE HCL 2MG CAPSULE PO PRN (14:04)
[2020-04-23] MEDS: LEVOFLOXACIN 500MG PREMIX 100 ML IV SCH (20:40)
[2020-04-23] MEDS ORDERED: ENOXAPARIN 30MG/0.3ML SYR SUBCUT SCH (21:00)
[2020-04-24] MEDS ORDERED: LEVOFLOXACIN 500MG TABLET PO SCH (11:00)
== END 2020-04-23 23:15 | DRG 91 ==
LOC: ER 17:50 → MICUSO 04-20 21:52 → 6WST 04-21 08:11
PROVIDERS: ADMIT Internal Medicine; ATTEND Internal Medicine
DX: G92 Toxic encephalopathy (principal); J96.01 Acute respiratory failure with hypoxia; I50.22 Chronic systolic (congestive) heart failure; E87.5 Hyperkalemia; I11.0 Hypertensive heart disease with heart failure; I25.10 Atherosclerotic heart disease of native coronary artery without angina pectoris; E66.01 Morbid (severe) obesity due to excess calories; I48.91 Unspecified atrial fibrillation; E11.51 Type 2 diabetes mellitus with diabetic peripheral angiopathy without gangrene; I87.2 Venous insufficiency (chronic) (peripheral); E03.9 Hypothyroidism, unspecified; E78.5 Hyperlipidemia, unspecified; E83.42 Hypomagnesemia; J32.0 Chronic maxillary sinusitis; J44.9 Chronic obstructive pulmonary disease, unspecified; R62.7 Adult failure to thrive; Z20.828 Contact with and (suspected) exposure to other viral communicable diseases; Z88.0 Allergy status to penicillin; Z68.36 Body mass index [BMI] 36.0-36.9, adult; Z79.899 Other long term (current) drug therapy; R91.8 Other nonspecific abnormal finding of lung field
CPT/HCPCS: 36415; 71045; 80048; 80053; 80061; 81003; 82550; 82553; 82607; 82962; 83036; 83605; 83735; 83880; 84439; 84443; 84484; 85025; 85379; 93005; 93306; 93923; 93970; 97022; 97162; 97530; 99285; J1650; J1815; J1940; J1956; J3475; J3490; J7030; U0003

== ENCOUNTER 2020-04-29 06:45 | Inpatient (IN) | payer MEDICARE, MEDICAID ==
[~2020-04-29] VITALS: Ht 177.8 cm; Wt 178.7 kg
[2020-04-29 09:34] LABS: BASOPHILS % 0.5 % (0.0-2.0); EOSINOPHILS % 2.3 % (0.0-5.0); HEMOGLOBIN. 11.3 g/dL (14.0-18.0); LYMPHOCYTES % 14.5 % (20.0-50.0); MEAN CORPUSCULAR HEMOGLOBIN 28.5 pg (28.0-32.0); MEAN CORPUSCULAR VOLUME 90.5 fL (80.0-94.0); MEAN PLATELET VOLUME 8.6 fl (7.4-10.4); MONOCYTES % 9.3 % (2.0-8.0); NEUTROPHILS % 73.4 % (40.0-76.0); PLATELET 160 x1000/uL (130-400); RED BLOOD CELL COUNT 3.98 mill/uL (4.7-6.1); RED CELL DISTRIBUTION WIDTH 15.3 % (11.6-14.6)
[2020-04-29 09:41] LABS: CHLORIDE 102 mEq/L (98-107)
[2020-04-29] MEDS ORDERED: FUROSEMIDE 40MG/4ML VIAL IVP ONE (10:30)
[2020-04-29 11:59] LABS: CLARITY URINE CLEAR (CLEAR); COLOR URINE YELLOW (YELLOW); KETONES URINE NEGATIVE (NEGATIVE); LEUKOCYTE ESTERASE URINE NEGATIVE (NEGATIVE); NITRITE URINE NEGATIVE (NEGATIVE); OCCULT BLOOD URINE NEGATIVE (NEGATIVE); PH URINE 6.5 (4.5-8.0); PROTEIN URINE NEGATIVE (NEGATIVE); SPECIFIC GRAVITY URINE 1.022 (1.005-1.030)
[2020-04-30] VITALS (12 sets, daily range): BP systolic 121–149; BP diastolic 50–84
[2020-04-30] MEDS ORDERED: IPRATROPIUM/ALBUTEROL 0.5-3(2.5)MG/3ML NEB HHN PRN (02:00)
[2020-04-30] MEDS ORDERED: DEXTROSE 50% WATER 50ML SYRINGE IV PRN ×2 (02:00)
[2020-04-30] MEDS ORDERED: CLONIDINE 0.1MG TABLET PO PRN (02:00)
[2020-04-30] MEDS ORDERED: ACETAMINOPHEN 325MG TABLET PO PRN (02:00)
[2020-04-30] MEDS: LEVOTHYROXINE SODIUM 50MCG TABLET PO SCH (06:29)
[2020-04-30] MEDS: FAMOTIDINE 20MG TABLET PO SCH (06:29)
[2020-04-30] MEDS: BLOOD SUGAR DIAGNOSTIC STRIP TEST SCH ×3 (06:50→16:50)
[2020-04-30] MEDS: INSULIN LISPRO 100 UNITS/ML SUBCUT SCH ×3 (07:20→17:20)
[2020-04-30] MEDS: GABAPENTIN 100MG CAPSULE PO SCH ×2 (10:10→18:26)
[2020-04-30] MEDS: METOPROLOL TARTRATE 25MG TABLET PO SCH ×3 (10:11→23:04)
[2020-04-30] MEDS: LOSARTAN POTASSIUM 50 MG TABLET PO SCH (10:11)
[2020-04-30] MEDS ORDERED: FAMO20TA8 PO (11:57)
[2020-04-30] MEDS ORDERED: LEVO50TA8 MT (11:58)
[2020-04-30] MEDS ORDERED: LOSA50TA41 MT (11:59)
[2020-04-30] MEDS ORDERED: POTA10CA42 MT (12:00)
[2020-04-30] MEDS ORDERED: FUROSEMIDE 40MG/4ML VIAL IVP NR (14:15)
[2020-04-30 20:02] LABS: CHLORIDE 96 mEq/L (98-107)
[2020-05-01] VITALS (12 sets, daily range): BP systolic 102–152; BP diastolic 27–72
[2020-05-01] MEDS: HYDROCODONE/ACETAMINOPHEN 5/325MG TABLET PO PRN (02:09)
[2020-05-01] MEDS: FAMOTIDINE 20MG TABLET PO SCH (06:09)
[2020-05-01] MEDS: LEVOTHYROXINE SODIUM 50MCG TABLET PO SCH (06:09)
[2020-05-01] MEDS: LOSARTAN POTASSIUM 50 MG TABLET PO SCH ×2 (09:00→09:06)
[2020-05-01] MEDS: METOPROLOL TARTRATE 25MG TABLET PO SCH ×2 (09:00→09:06)
[2020-05-01 09:04] LABS: BASOPHILS % 0.5 % (0.0-2.0); EOSINOPHILS % 4.1 % (0.0-5.0); HEMOGLOBIN. 12.2 g/dL (14.0-18.0); LYMPHOCYTES % 16.3 % (20.0-50.0); MEAN CORPUSCULAR HEMOGLOBIN 28.3 pg (28.0-32.0); MEAN CORPUSCULAR VOLUME 91.1 fL (80.0-94.0); MEAN PLATELET VOLUME 9.6 fl (7.4-10.4); MONOCYTES % 11.1 % (2.0-8.0); PLATELET 168 x1000/uL (130-400); RED BLOOD CELL COUNT 4.29 mill/uL (4.7-6.1); RED CELL DISTRIBUTION WIDTH 15.5 % (11.6-14.6)
[2020-05-01 09:06] LABS: CHLORIDE 95 mEq/L (98-107)
[2020-05-01] MEDS: GABAPENTIN 100MG CAPSULE PO SCH ×2 (09:06→16:54)
[2020-05-01] MEDS: AMIODARONE HCL 200 MG TABLET PO SCH (11:40)
[2020-05-01] MEDS: APIXABAN 5 MG TABLET PO SCH ×2 (11:40→16:54)
[2020-05-01] MEDS: METOPROLOL TARTRATE 50MG TABLET PO SCH (20:44)
[2020-05-02] VITALS (9 sets, daily range): BP systolic 123–157; BP diastolic 57–92
[2020-05-02] MEDS: FAMOTIDINE 20MG TABLET PO SCH (06:19)
[2020-05-02] MEDS: LEVOTHYROXINE SODIUM 50MCG TABLET PO SCH (06:19)
[2020-05-02 07:16] LABS: BASOPHILS % 0.5 % (0.0-2.0); EOSINOPHILS % 3.2 % (0.0-5.0); HEMATOCRIT. 34.4 % (42.0-52.0); HEMOGLOBIN. 10.9 g/dL (14.0-18.0); LYMPHOCYTES % 16.3 % (20.0-50.0); MEAN CORPUSCULAR HEMOGLOBIN 28.7 pg (28.0-32.0); MEAN CORPUSCULAR VOLUME 90.7 fL (80.0-94.0); MONOCYTES % 12.5 % (2.0-8.0); NEUTROPHILS % 67.5 % (40.0-76.0); PLATELET 154 x1000/uL (130-400); RED CELL DISTRIBUTION WIDTH 15.4 % (11.6-14.6)
[2020-05-02 07:53] LABS: CHLORIDE 96 mEq/L (98-107)
[2020-05-02] MEDS: APIXABAN 5 MG TABLET PO SCH ×2 (10:29→18:01)
[2020-05-02] MEDS: METOPROLOL TARTRATE 50MG TABLET PO SCH (10:29)
[2020-05-02] MEDS: AMIODARONE HCL 200 MG TABLET PO SCH (10:29)
[2020-05-02] MEDS: GABAPENTIN 100MG CAPSULE PO SCH ×2 (10:29→18:00)
[2020-05-02] MEDS: LOSARTAN POTASSIUM 50 MG TABLET PO SCH (10:29)
[2020-05-02 14:42] LABS: T4 FREE 0.92 ng/dL (0.76-1.46)
[2020-05-02] MEDS ORDERED: DILTIAZEM HCL 30MG TABLET PO SCH (18:00)
[2020-05-03] VITALS (11 sets, daily range): BP systolic 150–177; BP diastolic 68–82
[2020-05-03] MEDS: FAMOTIDINE 20MG TABLET PO SCH (05:14)
[2020-05-03] MEDS: LEVOTHYROXINE SODIUM 50MCG TABLET PO SCH (06:30)
[2020-05-03] MEDS: HYDROCODONE/ACETAMINOPHEN 5/325MG TABLET PO PRN (06:35)
[2020-05-03] MEDS: METOPROLOL TARTRATE 50MG TABLET PO SCH ×2 (08:37→20:24)
[2020-05-03] MEDS: APIXABAN 5 MG TABLET PO SCH (08:37)
[2020-05-03] MEDS: LOSARTAN POTASSIUM 50 MG TABLET PO SCH (08:37)
[2020-05-03] MEDS: GABAPENTIN 100MG CAPSULE PO SCH ×2 (08:37→17:31)
[2020-05-03] MEDS ORDERED: AMIODARONE HCL 200 MG TABLET PO SCH (09:00)
[2020-05-03 14:23] LABS: BG BASE EXCESS 14.2 mmol/L (-2.0-2.0); BG CARBOXYHEMOGLOBIN 1.5 % (0.5-1.5); BG DEOXYHEMOGLOBIN 8.8 % (0.0-5.0); BG FRACTION INSPIRED OXYGEN 28; BG HCO3 ACT 43.9 mmol/L (22.0-26.0); BG METHEMOGLOBIN 0.3 % (0.0-1.5); BG OXYHEMOGLOBIN 89.4 % (94.0-97.0); BG PCO2 87.3 mmHg (35.0-45.0); BG PH 7.319 (7.350-7.450); BG PO2 59.5 mmHg (75.0-100.0); BG SAMPLE SITE RIGHT RADIAL; BG VENT MODE NASAL CANNULA
[2020-05-03] MEDS ORDERED: ENOXAPARIN 150MG/ML SYR SUBCUT SCH (21:00)
== END 2020-05-03 22:26 | DRG 291 ==
LOC: ER 06:45 → 3WST 11:14 → EDBEDREQ 11:27 → ENRESERV 22:12 → 3WST 05-01 18:20
PROVIDERS: ADMIT Internal Medicine; ATTEND Internal Medicine
DX: I13.0 Hypertensive heart and chronic kidney disease with heart failure and stage 1 through stage 4 chronic kidney disease, or unspecified chronic kidney disease (principal); I50.41 Acute combined systolic (congestive) and diastolic (congestive) heart failure; I48.20 Chronic atrial fibrillation, unspecified; Z68.43 Body mass index [BMI] 50.0-59.9, adult; I48.3 Typical atrial flutter; J96.12 Chronic respiratory failure with hypercapnia; J96.11 Chronic respiratory failure with hypoxia; E66.2 Morbid (severe) obesity with alveolar hypoventilation; J44.9 Chronic obstructive pulmonary disease, unspecified; E03.9 Hypothyroidism, unspecified; I89.0 Lymphedema, not elsewhere classified; I44.7 Left bundle-branch block, unspecified; E78.5 Hyperlipidemia, unspecified; E11.22 Type 2 diabetes mellitus with diabetic chronic kidney disease; E11.51 Type 2 diabetes mellitus with diabetic peripheral angiopathy without gangrene; I42.8 Other cardiomyopathies; I44.30 Unspecified atrioventricular block; N18.9 Chronic kidney disease, unspecified; I48.0 Paroxysmal atrial fibrillation; Z20.828 Contact with and (suspected) exposure to other viral communicable diseases; Z86.718 Personal history of other venous thrombosis and embolism; Z79.01 Long term (current) use of anticoagulants; Z88.0 Allergy status to penicillin; Z79.899 Other long term (current) drug therapy; Z82.49 Family history of ischemic heart disease and other diseases of the circulatory system; Z90.5 Acquired absence of kidney; I27.20 Pulmonary hypertension, unspecified
CPT/HCPCS: 36415; 36600; 71045; 80048; 80053; 81003; 82375; 82805; 82962; 83036; 83735; 83880; 84439; 84443; 84484; 85025; 87426; 93005; 93306; 99285; J1650; J1940; A4315

== ENCOUNTER 2020-06-04 22:40 | Inpatient (IN) | payer MEDICARE, MEDICAID ==
[~2020-06-04] VITALS: Ht 193 cm; Wt 166.9 kg
[~2020-06-04 22:40] MED LIST changes: +FAMO20TA8 PO; +LEVO50TA8 MT; +LOSA50TA41 MT; +POTA10CA42 MT
[2020-06-04] MEDS ORDERED: ALBUTEROL (0.083%) 2.5MG/3ML NEB HHN STA (23:45)
[2020-06-04] MEDS ORDERED: IPRATROPIUM BROMIDE (0.02%) 0.5MG/2.5ML NEB HHN STA (23:45)
[2020-06-04] MEDS ORDERED: FUROSEMIDE 40MG/4ML VIAL IVP ONE (23:45)
[2020-06-05 01:05] LABS: BASOPHILS % 0.3 % (0.0-2.0); HEMATOCRIT. 38.6 % (42.0-52.0); HEMOGLOBIN. 11.5 g/dL (14.0-18.0); LYMPHOCYTES % 12.3 % (20.0-50.0); MEAN CORPUSCULAR HEMOGLOBIN 27.5 pg (28.0-32.0); MEAN CORPUSCULAR VOLUME 92.2 fL (80.0-94.0); MEAN PLATELET VOLUME 9.6 fl (7.4-10.4); MONOCYTES % 13.6 % (2.0-8.0); NEUTROPHILS % 71.8 % (40.0-76.0); PLATELET 115 x1000/uL (130-400); RED BLOOD CELL COUNT 4.18 mill/uL (4.7-6.1); RED CELL DISTRIBUTION WIDTH 15.3 % (11.6-14.6)
[2020-06-05 01:17] LABS: CHLORIDE 99 mEq/L (98-107)
[2020-06-05 01:29] LABS: BG BASE EXCESS 16.8 mmol/L (-2.0-2.0); BG CARBOXYHEMOGLOBIN 0.8 % (0.5-1.5); BG DEOXYHEMOGLOBIN 2.6 % (0.0-5.0); BG FRACTION INSPIRED OXYGEN 100; BG HCO3 ACT 51.5 mmol/L (22.0-26.0); BG METHEMOGLOBIN 0.1 % (0.0-1.5); BG OXYGEN SATURATION 97.4 % (92.0-98.5); BG OXYHEMOGLOBIN 96.5 % (94.0-97.0); BG PCO2 147.6 mmHg (35.0-45.0); BG PH 7.161 (7.350-7.450); BG PO2 108.1 mmHg (75.0-100.0); BG SAMPLE SITE RIGHT RADIAL; BG TOTAL HEMOGLOBIN 12.9 g/dL (12.0-18.0); BG VENT MODE MASK - NRB
[2020-06-05] MEDS ORDERED: CEFTRIAXONE 1 G PREMIX 50 ML IV SCH (01:45)
[2020-06-05 01:48] LABS: INR 1.1; PROTHROMBIN TIME 11.6 sec (9.6-11.0)
[2020-06-05] MEDS ORDERED: AZITHROMYCIN 500 MG in DEXT 5% WATER 250 ML IV SCH (02:00)
[2020-06-05 04:38] LABS: BG BASE EXCESS 13.6 mmol/L (-2.0-2.0); BG CARBOXYHEMOGLOBIN 0.7 % (0.5-1.5); BG DEOXYHEMOGLOBIN 6.4 % (0.0-5.0); BG FRACTION INSPIRED OXYGEN 50; BG HCO3 ACT 44.9 mmol/L (22.0-26.0); BG METHEMOGLOBIN 0.1 % (0.0-1.5); BG OXYGEN SATURATION 93.5 % (92.0-98.5); BG OXYHEMOGLOBIN 92.8 % (94.0-97.0); BG PCO2 104.1 mmHg (35.0-45.0); BG PH 7.253 (7.350-7.450); BG PO2 74.1 mmHg (75.0-100.0); BG TOTAL HEMOGLOBIN 12.2 g/dL (12.0-18.0); BG VENT MODE MASK - BIPAP
[2020-06-05] MEDS ORDERED: LEVOTHYROXINE SODIUM 50MCG TABLET PO ONE (09:00)
[2020-06-05] MEDS ORDERED: IPRATROPIUM/ALBUTEROL 0.5-3(2.5)MG/3ML NEB HHN PRN (09:00)
[2020-06-05] MEDS ORDERED: LIDOCAINE HCL/PF 1% 2ML VIAL ONE (09:00)
[2020-06-05] MEDS ORDERED: ACETAMINOPHEN 325MG TABLET PO PRN (09:00)
[2020-06-05] MEDS ORDERED: METOPROLOL TARTRATE 50MG TABLET PO SCH (09:15)
[2020-06-05] MEDS: METHYLPREDNISOLONE SOD SUCC 40 MG/ML VIAL IV SCH ×2 (09:45→21:14)
[2020-06-05] MEDS: ENOXAPARIN 150MG/ML SYR SUBCUT SCH ×2 (09:45→21:45)
[2020-06-05 11:59] LABS: BG BASE EXCESS 22.1 mmol/L (-2.0-2.0); BG CARBOXYHEMOGLOBIN 1.4 % (0.5-1.5); BG DEOXYHEMOGLOBIN 3.7 % (0.0-5.0); BG FRACTION INSPIRED OXYGEN 50; BG HCO3 ACT 54.8 mmol/L (22.0-26.0); BG METHEMOGLOBIN 0.5 % (0.0-1.5); BG OXYGEN SATURATION 96.2 % (92.0-98.5); BG OXYHEMOGLOBIN 94.4 % (94.0-97.0); BG PCO2 121.9 mmHg (35.0-45.0); BG PH 7.271 (7.350-7.450); BG PO2 87.8 mmHg (75.0-100.0); BG SAMPLE SITE RIGHT BRACHIAL; BG TOTAL HEMOGLOBIN 12.4 g/dL (12.0-18.0); BG TOTAL RESPIRATORY RATE 24 b/min; BG VENT MODE MASK - BIPAP
[2020-06-05] MEDS ORDERED: BISACODYL 10MG SUPP PR PRN (15:15)
[2020-06-05] MEDS ORDERED: DEXTROSE 50% WATER 50ML SYRINGE IV PRN (15:30)
[2020-06-05 15:31] LABS: CREATINE KINASE 144 IU/L (39-308)
[2020-06-05 15:32] LABS: CREATINE KINASE MB FRACTION 1.6 ng/mL (0.5-3.6)
[2020-06-05] MEDS ORDERED: DEXT 5%/0.45% NACL 1000ML 1,000 ML IV SCH (16:00)
[2020-06-05] MEDS ORDERED: FENTANYL CITRATE/PF 2,500 MCG in SODIUM CHLORIDE 0.9% 200 ML IV PRN ×4 (16:00)
[2020-06-05] MEDS ORDERED: MIDAZOLAM HCL 100 MG in DEXT 5% WATER 80 ML IV PRN ×4 (16:00)
[2020-06-05 16:04] LABS: BG BASE EXCESS 15.5 mmol/L (-2.0-2.0); BG CARBOXYHEMOGLOBIN 1.3 % (0.5-1.5); BG FRACTION INSPIRED OXYGEN 35; BG HCO3 ACT 44.8 mmol/L (22.0-26.0); BG METHEMOGLOBIN 0.1 % (0.0-1.5); BG OXYGEN SATURATION 92.9 % (92.0-98.5); BG OXYHEMOGLOBIN 91.6 % (94.0-97.0); BG PCO2 82.3 mmHg (35.0-45.0); BG PH 7.354 (7.350-7.450); BG PO2 67.6 mmHg (75.0-100.0); BG SAMPLE SITE RIGHT RADIAL; BG TOTAL HEMOGLOBIN 12.7 g/dL (12.0-18.0); BG VENT MODE MASK - BIPAP
[2020-06-05] MEDS: FAMOTIDINE 20MG/2ML VIAL IV SCH (17:02)
[2020-06-05] MEDS: IPRATROPIUM/ALBUTEROL 0.5-3(2.5)MG/3ML NEB HHN SCH ×2 (17:04→20:08)
[2020-06-05] MEDS: LEVOFLOXACIN 500MG PREMIX 100 ML IV SCH (17:11)
[2020-06-05] MEDS: FUROSEMIDE 40MG/4ML VIAL IVP SCH (17:12)
[2020-06-05] MEDS: BLOOD SUGAR DIAGNOSTIC STRIP TEST SCH ×2 (17:38→20:47)
[2020-06-05] MEDS ORDERED: SODIUM BICARBONATE 8.4% 1 MEQ/ML 50ML SYR IV NR (17:44)
[2020-06-05] MEDS: INSULIN LISPRO 100 UNITS/ML SUBCUT SCH ×2 (18:17→21:00)
[2020-06-05 20:15] LABS: BG BASE EXCESS 10.7 mmol/L (-2.0-2.0); BG CARBOXYHEMOGLOBIN 0.9 % (0.5-1.5); BG FRACTION INSPIRED OXYGEN 40; BG HCO3 ACT 38.1 mmol/L (22.0-26.0); BG METHEMOGLOBIN 0.1 % (0.0-1.5); BG OXYGEN SATURATION 94.9 % (92.0-98.5); BG PH 7.386 (7.350-7.450); BG SAMPLE SITE RIGHT RADIAL; BG TOTAL HEMOGLOBIN 12.3 g/dL (12.0-18.0); BG VENT MODE MASK - BIPAP
[2020-06-06 00:51] LABS: CREATINE KINASE 127 IU/L (39-308)
[2020-06-06 00:52] LABS: CREATINE KINASE MB FRACTION 2.3 ng/mL (0.5-3.6)
[2020-06-06] MEDS: HYDRALAZINE 20MG/ML VIAL IV PRN ×3 (03:15→23:18)
[2020-06-06 05:13] LABS: BASOPHILS % 0.1 % (0.0-2.0); HEMATOCRIT. 37.4 % (42.0-52.0); HEMOGLOBIN. 11.6 g/dL (14.0-18.0); LYMPHOCYTES % 7.6 % (20.0-50.0); MEAN CORPUSCULAR HEMOGLOBIN 27.6 pg (28.0-32.0); MEAN CORPUSCULAR VOLUME 88.8 fL (80.0-94.0); MONOCYTES % 3.5 % (2.0-8.0); NEUTROPHILS % 88.8 % (40.0-76.0); PLATELET 111 x1000/uL (130-400); RED BLOOD CELL COUNT 4.21 mill/uL (4.7-6.1)
[2020-06-06 05:21] LABS: CHLORIDE 95 mEq/L (98-107)
[2020-06-06 05:31] LABS: LDL CHOLESTEROL 40 mg/dL (5-100)
[2020-06-06 05:33] LABS: HDL CHOLESTEROL 58 mg/dL (40-59); T4 FREE 1.03 ng/dL (0.76-1.46)
[2020-06-06] MEDS: BLOOD SUGAR DIAGNOSTIC STRIP TEST SCH ×4 (06:43→21:00)
[2020-06-06] MEDS: INSULIN LISPRO 100 UNITS/ML SUBCUT SCH ×4 (06:44→21:07)
[2020-06-06] MEDS: IPRATROPIUM/ALBUTEROL 0.5-3(2.5)MG/3ML NEB HHN SCH ×2 (08:27→20:45)
[2020-06-06] MEDS: FAMOTIDINE 20MG/2ML VIAL IV SCH (09:00)
[2020-06-06] MEDS: FUROSEMIDE 40MG/4ML VIAL IVP SCH (09:36)
[2020-06-06] MEDS: ENOXAPARIN 150MG/ML SYR SUBCUT SCH ×2 (09:36→22:00)
[2020-06-06] MEDS: METHYLPREDNISOLONE SOD SUCC 40 MG/ML VIAL IV SCH ×2 (09:36→21:06)
[2020-06-06 11:04] LABS: BG BASE EXCESS 15.5 mmol/L (-2.0-2.0); BG CARBOXYHEMOGLOBIN 0.7 % (0.5-1.5); BG DEOXYHEMOGLOBIN 4.9 % (0.0-5.0); BG FRACTION INSPIRED OXYGEN 40; BG OXYGEN SATURATION 95.1 % (92.0-98.5); BG OXYHEMOGLOBIN 94.4 % (94.0-97.0); BG PCO2 53.6 mmHg (35.0-45.0); BG PH 7.501 (7.350-7.450); BG PO2 70.3 mmHg (75.0-100.0); BG SAMPLE SITE RIGHT RADIAL; BG TOTAL HEMOGLOBIN 12.5 g/dL (12.0-18.0); BG TOTAL RESPIRATORY RATE 30 b/min; BG VENT MODE MASK - BIPAP
[2020-06-06] MEDS: LEVOFLOXACIN 500MG PREMIX 100 ML IV SCH (16:16)
[2020-06-06] MEDS ORDERED: LOPERAMIDE HCL 2MG CAPSULE PO ONE (16:45)
[2020-06-07] VITALS (7 sets, daily range): BP systolic 140–204; BP diastolic 60–96
[2020-06-07] MEDS: HYDRALAZINE 20MG/ML VIAL IV PRN (05:39)
[2020-06-07 07:13] LABS: CHLORIDE 96 mEq/L (98-107)
[2020-06-07 07:19] LABS: HEMATOCRIT. 38.4 % (42.0-52.0); HEMOGLOBIN. 12.1 g/dL (14.0-18.0); MEAN CORPUSCULAR HEMOGLOBIN 28.1 pg (28.0-32.0); MEAN CORPUSCULAR VOLUME 88.8 fL (80.0-94.0); MEAN PLATELET VOLUME 10.5 fl (7.4-10.4); PLATELET 133 x1000/uL (130-400); RED BLOOD CELL COUNT 4.32 mill/uL (4.7-6.1); RED CELL DISTRIBUTION WIDTH 15.2 % (11.6-14.6)
[2020-06-07] MEDS: INSULIN LISPRO 100 UNITS/ML SUBCUT SCH ×4 (08:00→21:00)
[2020-06-07] MEDS: BLOOD SUGAR DIAGNOSTIC STRIP TEST SCH ×4 (08:16→21:00)
[2020-06-07] MEDS: FUROSEMIDE 40MG/4ML VIAL IVP SCH (08:17)
[2020-06-07] MEDS: METHYLPREDNISOLONE SOD SUCC 40 MG/ML VIAL IV SCH ×2 (08:17→21:38)
[2020-06-07] MEDS: FAMOTIDINE 20MG/2ML VIAL IV SCH (08:17)
[2020-06-07] MEDS: ENOXAPARIN 150MG/ML SYR SUBCUT SCH ×2 (08:17→21:39)
[2020-06-07] MEDS ORDERED: NA P230E RC (08:58)
[2020-06-07] MEDS ORDERED: DOCU-138 MT (08:58)
[2020-06-07] MEDS ORDERED: HYDR-4001 MT (08:58)
[2020-06-07] MEDS ORDERED: GABA-529 MT (08:58)
[2020-06-07] MEDS ORDERED: TOPUD PO (08:58)
[2020-06-07] MEDS ORDERED: MOM MT (08:58)
[2020-06-07] MEDS ORDERED: IPRA3AMP31 NEB (08:58)
[2020-06-07] MEDS ORDERED: CLON0.1T MT (08:58)
[2020-06-07] MEDS: IPRATROPIUM/ALBUTEROL 0.5-3(2.5)MG/3ML NEB HHN SCH ×2 (09:40→20:16)
[2020-06-07] MEDS: AMLODIPINE 10MG TABLET PO SCH (09:55)
[2020-06-07] MEDS: HYDRALAZINE HCL 50MG TABLET PO SCH ×3 (09:55→21:39)
[2020-06-07] MEDS: METRONIDAZOLE 500MG TABLET PO SCH ×3 (09:55→21:38)
[2020-06-07] MEDS: LOSARTAN POTASSIUM 50 MG TABLET PO SCH (09:55)
[2020-06-07 15:51] LABS: BG BASE EXCESS 15.1 mmol/L (-2.0-2.0); BG CARBOXYHEMOGLOBIN 0.5 % (0.5-1.5); BG DEOXYHEMOGLOBIN 2.8 % (0.0-5.0); BG FRACTION INSPIRED OXYGEN 40; BG HCO3 ACT 41.5 mmol/L (22.0-26.0); BG METHEMOGLOBIN 0.3 % (0.0-1.5); BG OXYGEN SATURATION 97.2 % (92.0-98.5); BG OXYHEMOGLOBIN 96.4 % (94.0-97.0); BG PCO2 58.3 mmHg (35.0-45.0); BG PO2 93.1 mmHg (75.0-100.0); BG SAMPLE SITE RIGHT BRACHIAL; BG TOTAL RESPIRATORY RATE 28 b/min; BG VENT MODE MASK - BIPAP
[2020-06-07 16:17] LABS: PLATELET ESTIMATE NORMAL
[2020-06-07] MEDS: LEVOFLOXACIN 500MG PREMIX 100 ML IV SCH (17:28)
[2020-06-07] MEDS: NITROGLYCERIN OINT 1GM/INCH UDPKT TD SCH (21:39)
[2020-06-08] VITALS (10 sets, daily range): BP systolic 120–186; BP diastolic 58–88
[2020-06-08] MEDS: HYDRALAZINE 20MG/ML VIAL IV PRN (00:47)
[2020-06-08] MEDS: IPRATROPIUM/ALBUTEROL 0.5-3(2.5)MG/3ML NEB HHN SCH ×4 (00:54→20:46)
[2020-06-08] MEDS: HYDRALAZINE HCL 50MG TABLET PO SCH ×3 (06:22→21:08)
[2020-06-08] MEDS: METRONIDAZOLE 500MG TABLET PO SCH ×3 (06:22→21:08)
[2020-06-08] MEDS: NITROGLYCERIN OINT 1GM/INCH UDPKT TD SCH ×3 (06:22→21:05)
[2020-06-08 07:10] LABS: HEMATOCRIT. 37.5 % (42.0-52.0); HEMOGLOBIN. 11.9 g/dL (14.0-18.0); MEAN CORPUSCULAR HEMOGLOBIN 28.3 pg (28.0-32.0); MEAN CORPUSCULAR VOLUME 89.2 fL (80.0-94.0); MEAN PLATELET VOLUME 10.1 fl (7.4-10.4); PLATELET 126 x1000/uL (130-400); RED BLOOD CELL COUNT 4.21 mill/uL (4.7-6.1); RED CELL DISTRIBUTION WIDTH 15.7 % (11.6-14.6)
[2020-06-08 07:27] LABS: CHLORIDE 96 mEq/L (98-107)
[2020-06-08] MEDS: INSULIN LISPRO 100 UNITS/ML SUBCUT SCH ×4 (08:00→21:00)
[2020-06-08] MEDS: BLOOD SUGAR DIAGNOSTIC STRIP TEST SCH ×4 (08:23→21:08)
[2020-06-08] MEDS: AMLODIPINE 10MG TABLET PO SCH (08:23)
[2020-06-08] MEDS: LOSARTAN POTASSIUM 50 MG TABLET PO SCH (08:23)
[2020-06-08] MEDS: ENOXAPARIN 150MG/ML SYR SUBCUT SCH ×2 (08:24→21:08)
[2020-06-08] MEDS: FUROSEMIDE 40MG/4ML VIAL IVP SCH ×2 (08:24→17:38)
[2020-06-08] MEDS: FAMOTIDINE 20MG/2ML VIAL IV SCH (08:24)
[2020-06-08] MEDS: METHYLPREDNISOLONE SOD SUCC 40 MG/ML VIAL IV SCH ×2 (08:24→21:06)
[2020-06-08 13:18] LABS: BG BASE EXCESS 15.6 mmol/L (-2.0-2.0); BG CARBOXYHEMOGLOBIN 0.7 % (0.5-1.5); BG DEOXYHEMOGLOBIN 3.7 % (0.0-5.0); BG FRACTION INSPIRED OXYGEN 35; BG HCO3 ACT 42.8 mmol/L (22.0-26.0); BG METHEMOGLOBIN 0.4 % (0.0-1.5); BG OXYGEN SATURATION 96.3 % (92.0-98.5); BG OXYHEMOGLOBIN 95.2 % (94.0-97.0); BG PCO2 64.3 mmHg (35.0-45.0); BG PH 7.441 (7.350-7.450); BG SAMPLE SITE RIGHT RADIAL; BG TOTAL HEMOGLOBIN 13.2 g/dL (12.0-18.0); BG TOTAL RESPIRATORY RATE 29 b/min; BG VENT MODE MASK - BIPAP
[2020-06-08] MEDS: LEVOFLOXACIN 500MG PREMIX 100 ML IV SCH (13:50)
[2020-06-08] MEDS: VANCOMYCIN HCL 1000 MG/20 ML ORAL PO SCH (17:38)
[2020-06-08 17:59] LABS: PLATELET ESTIMATE SLIGHTLY DECREASED
[2020-06-08] MEDS ORDERED: VANCOMYCIN HCL 1 GM/VIAL PO SCH (18:00)
[2020-06-08 19:41] LABS: CLARITY URINE CLEAR (CLEAR); COLOR URINE YELLOW (YELLOW); KETONES URINE NEGATIVE (NEGATIVE); LEUKOCYTE ESTERASE URINE NEGATIVE (NEGATIVE); NITRITE URINE NEGATIVE (NEGATIVE); OCCULT BLOOD URINE 1+ (NEGATIVE); PROTEIN URINE NEGATIVE (NEGATIVE)
[2020-06-09] VITALS (10 sets, daily range): BP systolic 134–163; BP diastolic 61–84
[2020-06-09] MEDS: VANCOMYCIN HCL 1000 MG/20 ML ORAL PO SCH ×5 (00:47→23:59)
[2020-06-09] MEDS: IPRATROPIUM/ALBUTEROL 0.5-3(2.5)MG/3ML NEB HHN SCH ×3 (02:00→17:06)
[2020-06-09] MEDS: FUROSEMIDE 40MG/4ML VIAL IVP SCH ×2 (05:41→17:29)
[2020-06-09] MEDS: METRONIDAZOLE 500MG TABLET PO SCH ×3 (05:42→20:51)
[2020-06-09] MEDS: NITROGLYCERIN OINT 1GM/INCH UDPKT TD SCH ×3 (05:42→20:51)
[2020-06-09] MEDS: HYDRALAZINE HCL 50MG TABLET PO SCH ×3 (05:42→20:51)
[2020-06-09] MEDS: INSULIN LISPRO 100 UNITS/ML SUBCUT SCH ×4 (08:00→21:00)
[2020-06-09] MEDS: BLOOD SUGAR DIAGNOSTIC STRIP TEST SCH ×4 (08:18→21:00)
[2020-06-09] MEDS: FAMOTIDINE 20MG/2ML VIAL IV SCH (08:19)
[2020-06-09] MEDS: METHYLPREDNISOLONE SOD SUCC 40 MG/ML VIAL IV SCH ×2 (08:19→20:50)
[2020-06-09] MEDS: LOSARTAN POTASSIUM 50 MG TABLET PO SCH (08:19)
[2020-06-09] MEDS: AMLODIPINE 10MG TABLET PO SCH (08:20)
[2020-06-09 08:23] LABS: CHLORIDE 94 mEq/L (98-107)
[2020-06-09 08:46] LABS: HEMATOCRIT. 37.6 % (42.0-52.0); HEMOGLOBIN. 12.1 g/dL (14.0-18.0); MEAN CORPUSCULAR HEMOGLOBIN 28.4 pg (28.0-32.0); MEAN PLATELET VOLUME 10.3 fl (7.4-10.4); PLATELET 127 x1000/uL (130-400); RED BLOOD CELL COUNT 4.28 mill/uL (4.7-6.1); RED CELL DISTRIBUTION WIDTH 15.2 % (11.6-14.6)
[2020-06-09] MEDS: ENOXAPARIN 150MG/ML SYR SUBCUT SCH ×2 (08:55→20:50)
[2020-06-09] MEDS ORDERED: POTASSIUM CHLORIDE 20MEQ TABLET SR PO NR (11:00)
[2020-06-09 12:30] LABS: PLATELET ESTIMATE SLIGHTLY DECREASED
[2020-06-09 12:38] LABS: BG BASE EXCESS 14.7 mmol/L (-2.0-2.0); BG CARBOXYHEMOGLOBIN 0.8 % (0.5-1.5); BG HCO3 ACT 42.7 mmol/L (22.0-26.0); BG METHEMOGLOBIN 0.2 % (0.0-1.5); BG OXYGEN SATURATION 91.9 % (92.0-98.5); BG PCO2 69.6 mmHg (35.0-45.0); BG PH 7.406 (7.350-7.450); BG PO2 63.8 mmHg (75.0-100.0); BG SAMPLE SITE RIGHT RADIAL; BG TOTAL HEMOGLOBIN 13.4 g/dL (12.0-18.0); BG VENT MODE NASAL CANNULA
[2020-06-09] MEDS: LEVOFLOXACIN 500MG PREMIX 100 ML IV SCH (13:13)
[2020-06-10] VITALS (9 sets, daily range): BP systolic 101–169; BP diastolic 47–92
[2020-06-10] MEDS: IPRATROPIUM/ALBUTEROL 0.5-3(2.5)MG/3ML NEB HHN SCH ×4 (00:26→20:38)
[2020-06-10] MEDS: METRONIDAZOLE 500MG TABLET PO SCH ×3 (05:12→23:09)
[2020-06-10] MEDS: FUROSEMIDE 40MG/4ML VIAL IVP SCH ×2 (05:12→17:20)
[2020-06-10] MEDS: VANCOMYCIN HCL 1000 MG/20 ML ORAL PO SCH ×4 (05:12→23:10)
[2020-06-10] MEDS: HYDRALAZINE HCL 50MG TABLET PO SCH ×3 (05:12→23:09)
[2020-06-10] MEDS: NITROGLYCERIN OINT 1GM/INCH UDPKT TD SCH ×3 (05:12→23:09)
[2020-06-10] MEDS: BLOOD SUGAR DIAGNOSTIC STRIP TEST SCH ×4 (07:30→20:35)
[2020-06-10] MEDS: INSULIN LISPRO 100 UNITS/ML SUBCUT SCH ×4 (08:00→20:35)
[2020-06-10] MEDS: FAMOTIDINE 20MG/2ML VIAL IV SCH (08:21)
[2020-06-10] MEDS: METHYLPREDNISOLONE SOD SUCC 40 MG/ML VIAL IV SCH ×2 (08:21→20:34)
[2020-06-10] MEDS: AMLODIPINE 10MG TABLET PO SCH (08:21)
[2020-06-10] MEDS: LOSARTAN POTASSIUM 50 MG TABLET PO SCH (08:21)
[2020-06-10 08:23] LABS: HEMATOCRIT. 40.5 % (42.0-52.0); HEMOGLOBIN. 12.7 g/dL (14.0-18.0); MEAN CORPUSCULAR HEMOGLOBIN 27.8 pg (28.0-32.0); MEAN CORPUSCULAR VOLUME 88.4 fL (80.0-94.0); PLATELET 117 x1000/uL (130-400); RED BLOOD CELL COUNT 4.58 mill/uL (4.7-6.1); RED CELL DISTRIBUTION WIDTH 14.9 % (11.6-14.6)
[2020-06-10] MEDS: ENOXAPARIN 150MG/ML SYR SUBCUT SCH ×3 (08:23→20:35)
[2020-06-10 08:40] LABS: CHLORIDE 94 mEq/L (98-107)
[2020-06-10] MEDS: LEVOFLOXACIN 500MG PREMIX 100 ML IV SCH (14:22)
[2020-06-10 14:43] LABS: PLATELET ESTIMATE DECREASED
[2020-06-11] VITALS (12 sets, daily range): BP systolic 128–168; BP diastolic 46–81
[2020-06-11] MEDS: IPRATROPIUM/ALBUTEROL 0.5-3(2.5)MG/3ML NEB HHN SCH ×4 (04:17→22:30)
[2020-06-11] MEDS: FUROSEMIDE 40MG/4ML VIAL IVP SCH ×2 (06:32→18:53)
[2020-06-11] MEDS: HYDRALAZINE HCL 50MG TABLET PO SCH (06:33)
[2020-06-11] MEDS: NITROGLYCERIN OINT 1GM/INCH UDPKT TD SCH ×3 (06:33→21:53)
[2020-06-11] MEDS: VANCOMYCIN HCL 1000 MG/20 ML ORAL PO SCH ×4 (06:41→23:10)
[2020-06-11] MEDS: METRONIDAZOLE 500MG TABLET PO SCH ×3 (06:44→21:53)
[2020-06-11 06:57] LABS: HEMATOCRIT. 39.6 % (42.0-52.0); HEMOGLOBIN. 12.7 g/dL (14.0-18.0); MEAN CORPUSCULAR HEMOGLOBIN 28.3 pg (28.0-32.0); MEAN CORPUSCULAR VOLUME 88.3 fL (80.0-94.0); MEAN PLATELET VOLUME 10.8 fl (7.4-10.4); PLATELET 121 x1000/uL (130-400); RED BLOOD CELL COUNT 4.49 mill/uL (4.7-6.1); RED CELL DISTRIBUTION WIDTH 15.2 % (11.6-14.6)
[2020-06-11 07:00] LABS: CHLORIDE 94 mEq/L (98-107)
[2020-06-11] MEDS: INSULIN LISPRO 100 UNITS/ML SUBCUT SCH ×4 (08:00→21:00)
[2020-06-11] MEDS: BLOOD SUGAR DIAGNOSTIC STRIP TEST SCH ×4 (08:20→21:52)
[2020-06-11] MEDS: METHYLPREDNISOLONE SOD SUCC 40 MG/ML VIAL IV SCH ×2 (08:46→21:52)
[2020-06-11] MEDS: LOSARTAN POTASSIUM 50 MG TABLET PO SCH (08:46)
[2020-06-11] MEDS: AMLODIPINE 10MG TABLET PO SCH (08:46)
[2020-06-11] MEDS: FAMOTIDINE 20MG/2ML VIAL IV SCH (08:46)
[2020-06-11] MEDS: ENOXAPARIN 150MG/ML SYR SUBCUT SCH ×2 (08:47→21:53)
[2020-06-11 13:36] LABS: BG BASE EXCESS 18.7 mmol/L (-2.0-2.0); BG CARBOXYHEMOGLOBIN 0.4 % (0.5-1.5); BG DEOXYHEMOGLOBIN 5.4 % (0.0-5.0); BG FRACTION INSPIRED OXYGEN 36; BG HCO3 ACT 47.2 mmol/L (22.0-26.0); BG METHEMOGLOBIN 0.2 % (0.0-1.5); BG OXYGEN SATURATION 94.6 % (92.0-98.5); BG PCO2 71.7 mmHg (35.0-45.0); BG PH 7.436 (7.350-7.450); BG PO2 71.9 mmHg (75.0-100.0); BG SAMPLE SITE LEFT RADIAL; BG TOTAL HEMOGLOBIN 14.2 g/dL (12.0-18.0); BG VENT MODE NASAL CANNULA
[2020-06-11] MEDS: HYDRALAZINE HCL 100MG TABLET PO SCH ×2 (14:29→21:52)
[2020-06-11 20:46] LABS: PLATELET ESTIMATE DECREASED
[2020-06-12] VITALS (11 sets, daily range): BP systolic 123–183; BP diastolic 60–98
[2020-06-12] MEDS: HYDRALAZINE 20MG/ML VIAL IV PRN (02:15)
[2020-06-12] MEDS: IPRATROPIUM/ALBUTEROL 0.5-3(2.5)MG/3ML NEB HHN SCH ×4 (04:30→21:05)
[2020-06-12] MEDS: FUROSEMIDE 40MG/4ML VIAL IVP SCH ×2 (05:38→18:29)
[2020-06-12] MEDS: METRONIDAZOLE 500MG TABLET PO SCH ×3 (05:38→21:33)
[2020-06-12] MEDS: VANCOMYCIN HCL 1000 MG/20 ML ORAL PO SCH ×3 (05:39→18:29)
[2020-06-12] MEDS: HYDRALAZINE HCL 100MG TABLET PO SCH ×3 (05:39→21:32)
[2020-06-12] MEDS: NITROGLYCERIN OINT 1GM/INCH UDPKT TD SCH ×3 (05:39→21:32)
[2020-06-12 06:53] LABS: HEMATOCRIT. 42.6 % (42.0-52.0); HEMOGLOBIN. 13.4 g/dL (14.0-18.0); MEAN CORPUSCULAR HEMOGLOBIN 27.8 pg (28.0-32.0); MEAN CORPUSCULAR VOLUME 88.4 fL (80.0-94.0); MEAN PLATELET VOLUME 10.5 fl (7.4-10.4); PLATELET 132 x1000/uL (130-400); RED BLOOD CELL COUNT 4.82 mill/uL (4.7-6.1); RED CELL DISTRIBUTION WIDTH 15.2 % (11.6-14.6)
[2020-06-12 07:05] LABS: CHLORIDE 94 mEq/L (98-107)
[2020-06-12] MEDS: INSULIN LISPRO 100 UNITS/ML SUBCUT SCH ×4 (08:00→21:00)
[2020-06-12] MEDS: BLOOD SUGAR DIAGNOSTIC STRIP TEST SCH ×4 (08:28→21:16)
[2020-06-12] MEDS: METHYLPREDNISOLONE SOD SUCC 40 MG/ML VIAL IV SCH ×2 (09:59→21:30)
[2020-06-12] MEDS: LOSARTAN POTASSIUM 50 MG TABLET PO SCH (09:59)
[2020-06-12] MEDS: AMLODIPINE 10MG TABLET PO SCH (10:00)
[2020-06-12] MEDS: ENOXAPARIN 150MG/ML SYR SUBCUT SCH ×2 (10:00→21:29)
[2020-06-12] MEDS: FAMOTIDINE 20MG/2ML VIAL IV SCH (12:52)
[2020-06-12 22:00] LABS: PLATELET ESTIMATE NORMAL
[2020-06-13] VITALS (12 sets, daily range): BP systolic 105–155; BP diastolic 55–97
[2020-06-13] MEDS: VANCOMYCIN HCL 1000 MG/20 ML ORAL PO SCH ×4 (00:39→18:25)
[2020-06-13] MEDS: FUROSEMIDE 40MG/4ML VIAL IVP SCH ×2 (05:16→18:25)
[2020-06-13] MEDS: NITROGLYCERIN OINT 1GM/INCH UDPKT TD SCH ×3 (05:18→22:41)
[2020-06-13] MEDS: HYDRALAZINE HCL 100MG TABLET PO SCH ×3 (05:20→22:41)
[2020-06-13] MEDS: BLOOD SUGAR DIAGNOSTIC STRIP TEST SCH ×4 (05:47→20:21)
[2020-06-13 06:43] LABS: HEMATOCRIT. 41.1 % (42.0-52.0); HEMOGLOBIN. 12.9 g/dL (14.0-18.0); MEAN CORPUSCULAR HEMOGLOBIN 27.4 pg (28.0-32.0); MEAN CORPUSCULAR VOLUME 87.5 fL (80.0-94.0); MEAN PLATELET VOLUME 10.4 fl (7.4-10.4); PLATELET 146 x1000/uL (130-400)
[2020-06-13 07:09] LABS: CHLORIDE 94 mEq/L (98-107)
[2020-06-13] MEDS: INSULIN LISPRO 100 UNITS/ML SUBCUT SCH ×4 (08:00→21:00)
[2020-06-13] MEDS: IPRATROPIUM/ALBUTEROL 0.5-3(2.5)MG/3ML NEB HHN SCH ×3 (08:47→21:42)
[2020-06-13] MEDS: LOSARTAN POTASSIUM 50 MG TABLET PO SCH (09:05)
[2020-06-13] MEDS: AMLODIPINE 10MG TABLET PO SCH (09:05)
[2020-06-13] MEDS: FAMOTIDINE 20MG/2ML VIAL IV SCH (09:05)
[2020-06-13] MEDS: ENOXAPARIN 150MG/ML SYR SUBCUT SCH ×2 (09:06→20:20)
[2020-06-13] MEDS: METHYLPREDNISOLONE SOD SUCC 40 MG/ML VIAL IV SCH ×2 (09:06→20:21)
[2020-06-13 11:31] LABS: PLATELET ESTIMATE NORMAL
[2020-06-14] VITALS (12 sets, daily range): BP systolic 111–145; BP diastolic 45–70
[2020-06-14] MEDS: IPRATROPIUM/ALBUTEROL 0.5-3(2.5)MG/3ML NEB HHN SCH ×4 (03:07→21:55)
[2020-06-14] MEDS: FUROSEMIDE 40MG/4ML VIAL IVP SCH ×2 (05:40→17:46)
[2020-06-14] MEDS: NITROGLYCERIN OINT 1GM/INCH UDPKT TD SCH ×3 (05:40→21:10)
[2020-06-14] MEDS: HYDRALAZINE HCL 100MG TABLET PO SCH ×3 (05:40→21:10)
[2020-06-14] MEDS: INSULIN LISPRO 100 UNITS/ML SUBCUT SCH ×4 (07:51→21:00)
[2020-06-14] MEDS: BLOOD SUGAR DIAGNOSTIC STRIP TEST SCH ×4 (07:51→21:00)
[2020-06-14] MEDS: ENOXAPARIN 150MG/ML SYR SUBCUT SCH ×2 (09:28→21:11)
[2020-06-14] MEDS: FAMOTIDINE 20MG/2ML VIAL IV SCH (09:28)
[2020-06-14] MEDS: AMLODIPINE 10MG TABLET PO SCH (09:28)
[2020-06-14] MEDS: METHYLPREDNISOLONE SOD SUCC 40 MG/ML VIAL IV SCH (09:28)
[2020-06-14] MEDS: LOSARTAN POTASSIUM 50 MG TABLET PO SCH (09:28)
[2020-06-14] MEDS ORDERED: LIDOCAINE HCL/PF 1% 2ML VIAL ONE (11:00)
[2020-06-14 12:42] LABS: BG BASE EXCESS 14.4 mmol/L (-2.0-2.0); BG CARBOXYHEMOGLOBIN 0.3 % (0.5-1.5); BG DEOXYHEMOGLOBIN 3.3 % (0.0-5.0); BG FRACTION INSPIRED OXYGEN 44; BG HCO3 ACT 41.1 mmol/L (22.0-26.0); BG METHEMOGLOBIN 0.2 % (0.0-1.5); BG OXYGEN SATURATION 96.7 % (92.0-98.5); BG OXYHEMOGLOBIN 96.2 % (94.0-97.0); BG PCO2 59.2 mmHg (35.0-45.0); BG PH 7.459 (7.350-7.450); BG PO2 88.1 mmHg (75.0-100.0); BG SAMPLE SITE RIGHT RADIAL; BG TOTAL HEMOGLOBIN 14.2 g/dL (12.0-18.0); BG VENT MODE NASAL CANNULA
[2020-06-14] MEDS ORDERED: CARVEDILOL 3.125 MG TABLET PO NR (15:45)
[2020-06-14 16:15] LABS: CHLORIDE 95 mEq/L (98-107)
[2020-06-14] MEDS ORDERED: VANCOMYCIN HCL 1 GM/VIAL PO SCH (18:00)
[2020-06-14] MEDS: VANCOMYCIN HCL 1000 MG/20 ML ORAL PO SCH ×2 (18:09→23:25)
[2020-06-14] MEDS ORDERED: CARVEDILOL 3.125 MG TABLET PO SCH (21:00)
[2020-06-14] MEDS: METRONIDAZOLE 500MG TABLET PO SCH (21:10)
[2020-06-14] MEDS: CARVEDILOL 3.125 MG TABLET PO SCH (21:10)
[2020-06-15] VITALS (11 sets, daily range): BP systolic 116–146; BP diastolic 47–76
[2020-06-15] MEDS: NITROGLYCERIN OINT 1GM/INCH UDPKT TD SCH ×3 (05:49→21:31)
[2020-06-15] MEDS: METRONIDAZOLE 500MG TABLET PO SCH ×3 (05:49→21:31)
[2020-06-15] MEDS: HYDRALAZINE HCL 100MG TABLET PO SCH ×3 (05:50→21:31)
[2020-06-15] MEDS: VANCOMYCIN HCL 1000 MG/20 ML ORAL PO SCH ×4 (05:50→23:14)
[2020-06-15] MEDS: FUROSEMIDE 40MG/4ML VIAL IVP SCH ×2 (05:50→18:37)
[2020-06-15 07:19] LABS: HEMATOCRIT. 40.8 % (42.0-52.0); HEMOGLOBIN. 12.8 g/dL (14.0-18.0); MEAN CORPUSCULAR HEMOGLOBIN 27.3 pg (28.0-32.0); MEAN CORPUSCULAR VOLUME 86.9 fL (80.0-94.0); PLATELET 182 x1000/uL (130-400)
[2020-06-15 07:50] LABS: CHLORIDE 95 mEq/L (98-107)
[2020-06-15] MEDS: INSULIN LISPRO 100 UNITS/ML SUBCUT SCH ×4 (08:00→21:00)
[2020-06-15] MEDS: BLOOD SUGAR DIAGNOSTIC STRIP TEST SCH ×4 (08:07→20:52)
[2020-06-15] MEDS: IPRATROPIUM/ALBUTEROL 0.5-3(2.5)MG/3ML NEB HHN SCH ×2 (08:10→21:57)
[2020-06-15] MEDS: METHYLPREDNISOLONE SOD SUCC 40 MG/ML VIAL IV SCH (09:57)
[2020-06-15] MEDS: FAMOTIDINE 20MG/2ML VIAL IV SCH (09:58)
[2020-06-15] MEDS: AMLODIPINE 10MG TABLET PO SCH (09:58)
[2020-06-15] MEDS: ENOXAPARIN 150MG/ML SYR SUBCUT SCH ×2 (09:58→20:52)
[2020-06-15] MEDS: CARVEDILOL 3.125 MG TABLET PO SCH ×2 (09:58→20:51)
[2020-06-15] MEDS: LOSARTAN POTASSIUM 50 MG TABLET PO SCH (10:01)
[2020-06-15 14:53] LABS: PLATELET ESTIMATE NORMAL
[2020-06-16] VITALS (12 sets, daily range): BP systolic 103–143; BP diastolic 53–94
[2020-06-16] MEDS: IPRATROPIUM/ALBUTEROL 0.5-3(2.5)MG/3ML NEB HHN SCH ×4 (03:49→20:26)
[2020-06-16] MEDS: HYDRALAZINE HCL 100MG TABLET PO SCH ×3 (05:14→20:55)
[2020-06-16] MEDS: FUROSEMIDE 40MG/4ML VIAL IVP SCH ×2 (05:15→17:37)
[2020-06-16] MEDS: VANCOMYCIN HCL 1000 MG/20 ML ORAL PO SCH ×4 (05:15→22:50)
[2020-06-16] MEDS: METRONIDAZOLE 500MG TABLET PO SCH ×3 (05:15→20:55)
[2020-06-16] MEDS: NITROGLYCERIN OINT 1GM/INCH UDPKT TD SCH ×3 (05:16→20:56)
[2020-06-16 06:26] LABS: CHLORIDE 96 mEq/L (98-107)
[2020-06-16 06:30] LABS: HEMOGLOBIN. 12.7 g/dL (14.0-18.0); MEAN CORPUSCULAR HEMOGLOBIN 28.2 pg (28.0-32.0); MEAN CORPUSCULAR VOLUME 88.6 fL (80.0-94.0); MEAN PLATELET VOLUME 10.9 fl (7.4-10.4); PLATELET 156 x1000/uL (130-400); RED BLOOD CELL COUNT 4.51 mill/uL (4.7-6.1)
[2020-06-16] MEDS: INSULIN LISPRO 100 UNITS/ML SUBCUT SCH ×4 (07:52→20:59)
[2020-06-16] MEDS: BLOOD SUGAR DIAGNOSTIC STRIP TEST SCH ×4 (07:52→20:59)
[2020-06-16] MEDS: AMLODIPINE 10MG TABLET PO SCH (09:17)
[2020-06-16] MEDS: FAMOTIDINE 20MG/2ML VIAL IV SCH (09:17)
[2020-06-16] MEDS: METHYLPREDNISOLONE SOD SUCC 40 MG/ML VIAL IV SCH (09:17)
[2020-06-16] MEDS: CARVEDILOL 3.125 MG TABLET PO SCH (09:18)
[2020-06-16] MEDS: LOSARTAN POTASSIUM 50 MG TABLET PO SCH (09:18)
[2020-06-16] MEDS: ENOXAPARIN 150MG/ML SYR SUBCUT SCH ×2 (09:18→20:55)
[2020-06-16] MEDS: AMIODARONE HCL 200 MG TABLET PO SCH ×3 (09:57→22:51)
[2020-06-16 13:42] LABS: NUCLEATED RED BLOOD CELLS 1 /100 WBC; PLATELET ESTIMATE NORMAL
[2020-06-16] MEDS ORDERED: LIDOCAINE HCL/PF 1% 2ML VIAL ONE (16:00)
[2020-06-16 16:57] LABS: BG BASE EXCESS 10.4 mmol/L (-2.0-2.0); BG CARBOXYHEMOGLOBIN 0.6 % (0.5-1.5); BG DEOXYHEMOGLOBIN 9.6 % (0.0-5.0); BG FRACTION INSPIRED OXYGEN 21; BG HCO3 ACT 36.9 mmol/L (22.0-26.0); BG METHEMOGLOBIN 0.3 % (0.0-1.5); BG OXYGEN SATURATION 90.3 % (92.0-98.5); BG OXYHEMOGLOBIN 89.5 % (94.0-97.0); BG PCO2 57.2 mmHg (35.0-45.0); BG PH 7.428 (7.350-7.450); BG PO2 57.5 mmHg (75.0-100.0); BG SAMPLE SITE LEFT RADIAL; BG TOTAL HEMOGLOBIN 13.6 g/dL (12.0-18.0); BG VENT MODE ROOM AIR
[2020-06-17] VITALS (11 sets, daily range): BP systolic 117–158; BP diastolic 45–101
[2020-06-17] MEDS: IPRATROPIUM/ALBUTEROL 0.5-3(2.5)MG/3ML NEB HHN SCH ×4 (02:25→21:02)
[2020-06-17] MEDS: NITROGLYCERIN OINT 1GM/INCH UDPKT TD SCH ×3 (05:03→22:21)
[2020-06-17] MEDS: METRONIDAZOLE 500MG TABLET PO SCH ×3 (05:03→22:19)
[2020-06-17] MEDS: VANCOMYCIN HCL 1000 MG/20 ML ORAL PO SCH ×3 (05:04→18:27)
[2020-06-17] MEDS: AMIODARONE HCL 200 MG TABLET PO SCH ×3 (05:08→22:21)
[2020-06-17] MEDS: HYDRALAZINE HCL 100MG TABLET PO SCH ×3 (05:12→22:19)
[2020-06-17] MEDS: FAMOTIDINE 20MG TABLET PO SCH (05:50)
[2020-06-17] MEDS: BLOOD SUGAR DIAGNOSTIC STRIP TEST SCH ×4 (07:26→21:00)
[2020-06-17 07:31] LABS: HEMATOCRIT. 38.4 % (42.0-52.0); HEMOGLOBIN. 12.2 g/dL (14.0-18.0); MEAN CORPUSCULAR HEMOGLOBIN 27.7 pg (28.0-32.0); MEAN CORPUSCULAR VOLUME 87.3 fL (80.0-94.0); MEAN PLATELET VOLUME 9.9 fl (7.4-10.4); PLATELET 205 x1000/uL (130-400)
[2020-06-17] MEDS: INSULIN LISPRO 100 UNITS/ML SUBCUT SCH ×4 (08:00→21:00)
[2020-06-17 08:10] LABS: CHLORIDE 97 mEq/L (98-107)
[2020-06-17] MEDS: METHYLPREDNISOLONE SOD SUCC 40 MG/ML VIAL IV SCH (09:18)
[2020-06-17] MEDS: LOSARTAN POTASSIUM 50 MG TABLET PO SCH (09:18)
[2020-06-17] MEDS: AMLODIPINE 10MG TABLET PO SCH (09:18)
[2020-06-17] MEDS: ENOXAPARIN 150MG/ML SYR SUBCUT SCH (09:19)
[2020-06-17] MEDS ORDERED: FUROSEMIDE 20MG/2ML VIAL IVP SCH (11:15)
[2020-06-17] MEDS ORDERED: FUROSEMIDE 20MG/2ML VIAL IVP NR (14:45)
[2020-06-18] VITALS (7 sets, daily range): BP systolic 99–138; BP diastolic 45–103
[2020-06-18 00:53] LABS: PLATELET ESTIMATE NORMAL
[2020-06-18] MEDS ORDERED: AMIODARONE HCL 200 MG TABLET PO SCH (01:00)
[2020-06-18] MEDS: IPRATROPIUM/ALBUTEROL 0.5-3(2.5)MG/3ML NEB HHN SCH ×4 (03:16→20:37)
[2020-06-18] MEDS: VANCOMYCIN HCL 1000 MG/20 ML ORAL PO SCH ×4 (06:24→17:16)
[2020-06-18] MEDS: AMIODARONE HCL 200 MG TABLET PO SCH ×3 (06:26→21:36)
[2020-06-18] MEDS: HYDRALAZINE HCL 100MG TABLET PO SCH ×3 (06:26→21:37)
[2020-06-18] MEDS: METRONIDAZOLE 500MG TABLET PO SCH ×3 (06:26→21:38)
[2020-06-18] MEDS: BLOOD SUGAR DIAGNOSTIC STRIP TEST SCH ×4 (06:27→21:00)
[2020-06-18] MEDS: INSULIN LISPRO 100 UNITS/ML SUBCUT SCH ×4 (06:27→21:00)
[2020-06-18] MEDS: FAMOTIDINE 20MG TABLET PO SCH (06:27)
[2020-06-18] MEDS: NITROGLYCERIN OINT 1GM/INCH UDPKT TD SCH ×3 (06:27→21:36)
[2020-06-18 07:46] LABS: CHLORIDE 98 mEq/L (98-107)
[2020-06-18 07:50] LABS: HEMATOCRIT. 37.1 % (42.0-52.0); HEMOGLOBIN. 11.7 g/dL (14.0-18.0); MEAN CORPUSCULAR HEMOGLOBIN 27.5 pg (28.0-32.0); MEAN CORPUSCULAR VOLUME 87.3 fL (80.0-94.0); MEAN PLATELET VOLUME 9.6 fl (7.4-10.4); PLATELET 219 x1000/uL (130-400); RED BLOOD CELL COUNT 4.25 mill/uL (4.7-6.1); RED CELL DISTRIBUTION WIDTH 14.9 % (11.6-14.6)
[2020-06-18] MEDS: METHYLPREDNISOLONE SOD SUCC 40 MG/ML VIAL IV SCH (08:07)
[2020-06-18] MEDS: LOSARTAN POTASSIUM 50 MG TABLET PO SCH (08:08)
[2020-06-18] MEDS: FUROSEMIDE 40MG/4ML VIAL IVP SCH (08:08)
[2020-06-18] MEDS: APIXABAN 5 MG TABLET PO SCH ×2 (08:08→17:16)
[2020-06-18] MEDS: AMLODIPINE 10MG TABLET PO SCH (08:09)
[2020-06-18 23:06] LABS: PLATELET ESTIMATE NORMAL
[2020-06-19] VITALS: BP 132/60
[2020-06-19] MEDS: VANCOMYCIN HCL 1000 MG/20 ML ORAL PO SCH ×3 (00:10→12:52)
[2020-06-19] MEDS: IPRATROPIUM/ALBUTEROL 0.5-3(2.5)MG/3ML NEB HHN SCH ×3 (02:22→11:14)
[2020-06-19 04:00] VITALS: BP 124/60
[2020-06-19] MEDS: METRONIDAZOLE 500MG TABLET PO SCH ×3 (05:18→21:20)
[2020-06-19] MEDS: HYDRALAZINE HCL 100MG TABLET PO SCH ×3 (05:18→21:20)
[2020-06-19] MEDS: NITROGLYCERIN OINT 1GM/INCH UDPKT TD SCH ×3 (05:19→21:21)
[2020-06-19] MEDS: AMIODARONE HCL 200 MG TABLET PO SCH ×3 (05:22→21:21)
[2020-06-19 06:35] LABS: CHLORIDE 99 mEq/L (98-107)
[2020-06-19 06:54] LABS: HEMATOCRIT. 36.4 % (42.0-52.0); HEMOGLOBIN. 11.7 g/dL (14.0-18.0); MEAN CORPUSCULAR VOLUME 87.2 fL (80.0-94.0); MEAN PLATELET VOLUME 9.6 fl (7.4-10.4); PLATELET 226 x1000/uL (130-400); RED BLOOD CELL COUNT 4.18 mill/uL (4.7-6.1)
[2020-06-19] MEDS: BLOOD SUGAR DIAGNOSTIC STRIP TEST SCH ×4 (07:30→21:00)
[2020-06-19 08:00] VITALS: BP 140/59
[2020-06-19] MEDS: INSULIN LISPRO 100 UNITS/ML SUBCUT SCH ×4 (08:00→21:00)
[2020-06-19] MEDS: LOSARTAN POTASSIUM 50 MG TABLET PO SCH (08:06)
[2020-06-19] MEDS: FAMOTIDINE 20MG TABLET PO SCH (08:06)
[2020-06-19] MEDS: METHYLPREDNISOLONE SOD SUCC 40 MG/ML VIAL IV SCH (08:06)
[2020-06-19] MEDS: APIXABAN 5 MG TABLET PO SCH ×2 (08:06→17:55)
[2020-06-19] MEDS: FUROSEMIDE 40MG/4ML VIAL IVP SCH (08:06)
[2020-06-19] MEDS: AMLODIPINE 10MG TABLET PO SCH (08:07)
[2020-06-19 12:00] VITALS: BP 137/59
[2020-06-19 14:26] LABS: PLATELET ESTIMATE NORMAL
[2020-06-19 16:00] VITALS: BP 142/65
[2020-06-19 20:00] VITALS: BP 126/58
[2020-06-20] VITALS (11 sets, daily range): BP systolic 130–148; BP diastolic 58–87
[2020-06-20] MEDS: IPRATROPIUM/ALBUTEROL 0.5-3(2.5)MG/3ML NEB HHN SCH ×4 (03:22→20:20)
[2020-06-20] MEDS: AMIODARONE HCL 200 MG TABLET PO SCH ×3 (05:20→21:45)
[2020-06-20] MEDS: NITROGLYCERIN OINT 1GM/INCH UDPKT TD SCH ×3 (05:22→21:46)
[2020-06-20] MEDS: HYDRALAZINE HCL 100MG TABLET PO SCH ×3 (05:23→21:45)
[2020-06-20 06:24] LABS: HEMATOCRIT. 36.3 % (42.0-52.0); HEMOGLOBIN. 11.4 g/dL (14.0-18.0); MEAN CORPUSCULAR HEMOGLOBIN 27.6 pg (28.0-32.0); MEAN CORPUSCULAR VOLUME 87.6 fL (80.0-94.0); MEAN PLATELET VOLUME 9.9 fl (7.4-10.4); PLATELET 248 x1000/uL (130-400); RED BLOOD CELL COUNT 4.14 mill/uL (4.7-6.1); RED CELL DISTRIBUTION WIDTH 15.1 % (11.6-14.6)
[2020-06-20 06:48] LABS: CHLORIDE 100 mEq/L (98-107)
[2020-06-20] MEDS: BLOOD SUGAR DIAGNOSTIC STRIP TEST SCH ×4 (07:30→21:00)
[2020-06-20] MEDS: INSULIN LISPRO 100 UNITS/ML SUBCUT SCH ×4 (08:00→21:00)
[2020-06-20] MEDS: METHYLPREDNISOLONE SOD SUCC 40 MG/ML VIAL IV SCH (08:59)
[2020-06-20] MEDS: FUROSEMIDE 40MG/4ML VIAL IVP SCH (08:59)
[2020-06-20] MEDS: FAMOTIDINE 20MG TABLET PO SCH (09:00)
[2020-06-20] MEDS: APIXABAN 5 MG TABLET PO SCH ×2 (09:00→17:53)
[2020-06-20] MEDS: LOSARTAN POTASSIUM 50 MG TABLET PO SCH (09:00)
[2020-06-20] MEDS: AMLODIPINE 10MG TABLET PO SCH (09:00)
[2020-06-20 14:22] LABS: PLATELET ESTIMATE NORMAL
[2020-06-21] VITALS (7 sets, daily range): BP systolic 125–156; BP diastolic 54–77
[2020-06-21] MEDS: IPRATROPIUM/ALBUTEROL 0.5-3(2.5)MG/3ML NEB HHN SCH ×4 (02:10→21:01)
[2020-06-21] MEDS: HYDRALAZINE HCL 100MG TABLET PO SCH ×3 (05:37→22:13)
[2020-06-21] MEDS: NITROGLYCERIN OINT 1GM/INCH UDPKT TD SCH ×3 (05:37→22:13)
[2020-06-21] MEDS: AMIODARONE HCL 200 MG TABLET PO SCH ×3 (05:38→22:13)
[2020-06-21 06:56] LABS: HEMATOCRIT. 37.4 % (42.0-52.0); HEMOGLOBIN. 11.8 g/dL (14.0-18.0); MEAN CORPUSCULAR HEMOGLOBIN 27.1 pg (28.0-32.0); MEAN CORPUSCULAR VOLUME 86.4 fL (80.0-94.0); MEAN PLATELET VOLUME 9.5 fl (7.4-10.4); PLATELET 251 x1000/uL (130-400); RED BLOOD CELL COUNT 4.33 mill/uL (4.7-6.1); RED CELL DISTRIBUTION WIDTH 14.9 % (11.6-14.6)
[2020-06-21 07:24] LABS: CHLORIDE 99 mEq/L (98-107)
[2020-06-21] MEDS: BLOOD SUGAR DIAGNOSTIC STRIP TEST SCH ×4 (07:30→21:00)
[2020-06-21] MEDS: INSULIN LISPRO 100 UNITS/ML SUBCUT SCH ×4 (08:00→21:00)
[2020-06-21] MEDS: LOSARTAN POTASSIUM 50 MG TABLET PO SCH (08:31)
[2020-06-21] MEDS: FAMOTIDINE 20MG TABLET PO SCH (08:31)
[2020-06-21] MEDS: FUROSEMIDE 40MG/4ML VIAL IVP SCH (08:31)
[2020-06-21] MEDS: APIXABAN 5 MG TABLET PO SCH ×2 (08:32→17:39)
[2020-06-21] MEDS: AMLODIPINE 10MG TABLET PO SCH (08:32)
[2020-06-21] MEDS: PREDNISONE 20MG TABLET PO SCH (08:44)
[2020-06-21] MEDS ORDERED: FUROSEMIDE 100MG/10ML VIAL IVP ONE (09:30)
[2020-06-21 13:59] LABS: PLATELET ESTIMATE NORMAL
[2020-06-22] VITALS (9 sets, daily range): BP systolic 126–152; BP diastolic 53–88
[2020-06-22] MEDS: IPRATROPIUM/ALBUTEROL 0.5-3(2.5)MG/3ML NEB HHN SCH ×4 (02:26→22:18)
[2020-06-22] MEDS: AMIODARONE HCL 200 MG TABLET PO SCH ×3 (05:29→22:42)
[2020-06-22] MEDS: HYDRALAZINE HCL 100MG TABLET PO SCH ×3 (05:29→22:41)
[2020-06-22] MEDS: NITROGLYCERIN OINT 1GM/INCH UDPKT TD SCH ×3 (05:29→22:42)
[2020-06-22] MEDS: BLOOD SUGAR DIAGNOSTIC STRIP TEST SCH ×4 (07:30→21:00)
[2020-06-22] MEDS: INSULIN LISPRO 100 UNITS/ML SUBCUT SCH ×4 (08:00→21:00)
[2020-06-22] MEDS: APIXABAN 5 MG TABLET PO SCH ×2 (09:19→18:09)
[2020-06-22] MEDS: AMLODIPINE 10MG TABLET PO SCH (09:19)
[2020-06-22] MEDS: LOSARTAN POTASSIUM 50 MG TABLET PO SCH (09:20)
[2020-06-22] MEDS: FAMOTIDINE 20MG TABLET PO SCH (09:20)
[2020-06-22] MEDS: PREDNISONE 20MG TABLET PO SCH (09:20)
[2020-06-22] MEDS: FUROSEMIDE 40MG/4ML VIAL IVP SCH (09:20)
[2020-06-23] VITALS (9 sets, daily range): BP systolic 126–170; BP diastolic 43–80
[2020-06-23] MEDS: IPRATROPIUM/ALBUTEROL 0.5-3(2.5)MG/3ML NEB HHN SCH ×4 (02:40→20:42)
[2020-06-23] MEDS: HYDRALAZINE HCL 100MG TABLET PO SCH ×3 (05:47→21:13)
[2020-06-23] MEDS: NITROGLYCERIN OINT 1GM/INCH UDPKT TD SCH ×3 (05:48→21:14)
[2020-06-23] MEDS: AMIODARONE HCL 200 MG TABLET PO SCH ×3 (05:48→21:13)
[2020-06-23 07:02] LABS: HEMATOCRIT 38.9 % (42.0-52.0); HEMOGLOBIN 12.3 g/dL (14.0-18.0); MEAN CORPUSCULAR HEMOGLOBIN 27.3 pg (28.0-32.0); MEAN CORPUSCULAR VOLUME 86.8 fL (80.0-94.0); PLATELET 223 x1000/uL (130-400); RED BLOOD CELL COUNT 4.48 mill/uL (4.7-6.1)
[2020-06-23 07:24] LABS: CHLORIDE 100 mEq/L (98-107)
[2020-06-23] MEDS: BLOOD SUGAR DIAGNOSTIC STRIP TEST SCH ×4 (07:30→21:13)
[2020-06-23] MEDS: INSULIN LISPRO 100 UNITS/ML SUBCUT SCH ×4 (08:00→21:00)
[2020-06-23] MEDS: LOSARTAN POTASSIUM 50 MG TABLET PO SCH (08:59)
[2020-06-23] MEDS: APIXABAN 5 MG TABLET PO SCH ×2 (08:59→17:45)
[2020-06-23] MEDS: FUROSEMIDE 40MG/4ML VIAL IVP SCH (08:59)
[2020-06-23] MEDS: AMLODIPINE 10MG TABLET PO SCH (08:59)
[2020-06-23] MEDS: FAMOTIDINE 20MG TABLET PO SCH (08:59)
[2020-06-23] MEDS: PREDNISONE 20MG TABLET PO SCH (08:59)
[2020-06-24] VITALS: BP 135/60
[2020-06-24] MEDS: IPRATROPIUM/ALBUTEROL 0.5-3(2.5)MG/3ML NEB HHN SCH ×4 (01:07→20:41)
[2020-06-24 04:00] VITALS: BP 132/59
[2020-06-24] MEDS: NITROGLYCERIN OINT 1GM/INCH UDPKT TD SCH ×3 (05:02→21:33)
[2020-06-24] MEDS: ONDANSETRON HCL 4MG/2ML INJ IV PRN (05:02)
[2020-06-24] MEDS: AMIODARONE HCL 200 MG TABLET PO SCH ×3 (05:02→21:33)
[2020-06-24] MEDS: HYDRALAZINE HCL 100MG TABLET PO SCH ×3 (05:02→21:34)
[2020-06-24] MEDS: BLOOD SUGAR DIAGNOSTIC STRIP TEST SCH ×4 (07:28→21:00)
[2020-06-24 08:00] VITALS: BP 131/66
[2020-06-24] MEDS: INSULIN LISPRO 100 UNITS/ML SUBCUT SCH ×4 (08:00→21:00)
[2020-06-24] MEDS: AMLODIPINE 10MG TABLET PO SCH (08:23)
[2020-06-24] MEDS: FAMOTIDINE 20MG TABLET PO SCH (08:23)
[2020-06-24] MEDS: LOSARTAN POTASSIUM 50 MG TABLET PO SCH (08:23)
[2020-06-24] MEDS: PREDNISONE 20MG TABLET PO SCH (08:24)
[2020-06-24] MEDS: APIXABAN 5 MG TABLET PO SCH ×2 (08:24→17:33)
[2020-06-24] MEDS: FUROSEMIDE 40MG/4ML VIAL IVP SCH (08:24)
[2020-06-24 12:00] VITALS: BP 109/50
[2020-06-24 15:47] VITALS: BP 105/47
[2020-06-24 20:00] VITALS: BP 151/72
[2020-06-25] VITALS (7 sets, daily range): BP systolic 104–145; BP diastolic 50–81
[2020-06-25] MEDS: ONDANSETRON HCL 4MG/2ML INJ IV PRN (02:01)
[2020-06-25] MEDS: IPRATROPIUM/ALBUTEROL 0.5-3(2.5)MG/3ML NEB HHN SCH ×4 (02:43→20:47)
[2020-06-25] MEDS: FAMOTIDINE 20MG TABLET PO SCH (05:14)
[2020-06-25] MEDS: NITROGLYCERIN OINT 1GM/INCH UDPKT TD SCH ×3 (05:15→21:50)
[2020-06-25] MEDS: AMIODARONE HCL 200 MG TABLET PO SCH (05:15)
[2020-06-25] MEDS: HYDRALAZINE HCL 100MG TABLET PO SCH ×3 (05:16→21:50)
[2020-06-25] MEDS: INSULIN LISPRO 100 UNITS/ML SUBCUT SCH ×4 (07:25→20:42)
[2020-06-25] MEDS: BLOOD SUGAR DIAGNOSTIC STRIP TEST SCH ×4 (07:25→20:42)
[2020-06-25] MEDS: AMLODIPINE 10MG TABLET PO SCH (10:10)
[2020-06-25] MEDS: APIXABAN 5 MG TABLET PO SCH ×2 (10:10→17:00)
[2020-06-25] MEDS: PREDNISONE 20MG TABLET PO SCH (10:11)
[2020-06-25] MEDS: FUROSEMIDE 40MG/4ML VIAL IVP SCH (10:11)
[2020-06-25] MEDS: LOSARTAN POTASSIUM 50 MG TABLET PO SCH (10:11)
[2020-06-25] MEDS ORDERED: AMIODARONE HCL 200 MG TABLET PO SCH (13:00)
[2020-06-26] VITALS (12 sets, daily range): BP systolic 116–147; BP diastolic 5–69
[2020-06-26] MEDS: IPRATROPIUM/ALBUTEROL 0.5-3(2.5)MG/3ML NEB HHN SCH ×4 (02:14→20:51)
[2020-06-26] MEDS: NITROGLYCERIN OINT 1GM/INCH UDPKT TD SCH ×3 (06:19→21:39)
[2020-06-26] MEDS: HYDRALAZINE HCL 100MG TABLET PO SCH ×3 (06:19→21:39)
[2020-06-26] MEDS: BLOOD SUGAR DIAGNOSTIC STRIP TEST SCH ×4 (07:30→21:00)
[2020-06-26] MEDS: INSULIN LISPRO 100 UNITS/ML SUBCUT SCH ×4 (08:00→21:00)
[2020-06-26] MEDS: FAMOTIDINE 20MG TABLET PO SCH (08:15)
[2020-06-26] MEDS: AMLODIPINE 10MG TABLET PO SCH (08:15)
[2020-06-26] MEDS: LOSARTAN POTASSIUM 50 MG TABLET PO SCH (08:16)
[2020-06-26] MEDS: PREDNISONE 20MG TABLET PO SCH (08:16)
[2020-06-26] MEDS: FUROSEMIDE 40MG TABLET PO SCH (08:16)
[2020-06-26] MEDS: APIXABAN 5 MG TABLET PO SCH ×3 (08:36→17:00)
[2020-06-26] MEDS: ONDANSETRON HCL 4MG/2ML INJ IV PRN (23:42)
[2020-06-27] VITALS (8 sets, daily range): BP systolic 126–147; BP diastolic 60–73
[2020-06-27] MEDS ORDERED: DEXT 5%/0.9% NACL 1,000 ML IV SCH
[2020-06-27] MEDS: IPRATROPIUM/ALBUTEROL 0.5-3(2.5)MG/3ML NEB HHN SCH ×3 (00:37→13:31)
[2020-06-27] MEDS: HYDRALAZINE HCL 100MG TABLET PO SCH ×3 (05:38→21:49)
[2020-06-27] MEDS: NITROGLYCERIN OINT 1GM/INCH UDPKT TD SCH ×3 (05:39→21:49)
[2020-06-27 07:05] LABS: CHLORIDE 102 mEq/L (98-107)
[2020-06-27 07:15] LABS: HEMATOCRIT. 38.5 % (42.0-52.0); HEMOGLOBIN. 12.1 g/dL (14.0-18.0); MEAN CORPUSCULAR HEMOGLOBIN 27.5 pg (28.0-32.0); MEAN CORPUSCULAR VOLUME 87.5 fL (80.0-94.0); MEAN PLATELET VOLUME 9.2 fl (7.4-10.4); PLATELET 148 x1000/uL (130-400); RED CELL DISTRIBUTION WIDTH 15.3 % (11.6-14.6)
[2020-06-27] MEDS: BLOOD SUGAR DIAGNOSTIC STRIP TEST SCH ×4 (07:17→21:00)
[2020-06-27 07:24] LABS: PROTHROMBIN TIME 10.6 sec (9.6-11.0)
[2020-06-27] MEDS: INSULIN LISPRO 100 UNITS/ML SUBCUT SCH ×4 (08:00→21:00)
[2020-06-27] MEDS: PREDNISONE 20MG TABLET PO SCH (08:26)
[2020-06-27] MEDS: FAMOTIDINE 20MG TABLET PO SCH (08:26)
[2020-06-27] MEDS: LOSARTAN POTASSIUM 50 MG TABLET PO SCH (08:26)
[2020-06-27] MEDS: FUROSEMIDE 40MG TABLET PO SCH (08:26)
[2020-06-27] MEDS: APIXABAN 5 MG TABLET PO SCH ×2 (08:27→09:31)
[2020-06-27] MEDS: AMLODIPINE 10MG TABLET PO SCH (08:27)
[2020-06-27] MEDS: AMIODARONE HCL 200 MG TABLET PO SCH (09:31)
[2020-06-27 14:23] LABS: PLATELET ESTIMATE NORMAL
[2020-06-28] VITALS (10 sets, daily range): BP systolic 102–159; BP diastolic 38–102
[2020-06-28] MEDS: IPRATROPIUM/ALBUTEROL 0.5-3(2.5)MG/3ML NEB HHN SCH ×4 (03:57→21:22)
[2020-06-28] MEDS: HYDRALAZINE HCL 100MG TABLET PO SCH ×3 (05:28→20:54)
[2020-06-28] MEDS: NITROGLYCERIN OINT 1GM/INCH UDPKT TD SCH ×3 (05:28→20:54)
[2020-06-28 06:16] LABS: CHLORIDE 103 mEq/L (98-107)
[2020-06-28 06:39] LABS: BASOPHILS % 0.6 % (0.0-2.0); EOSINOPHILS % 1.4 % (0.0-5.0); HEMATOCRIT. 37.7 % (42.0-52.0); HEMOGLOBIN. 12.1 g/dL (14.0-18.0); LYMPHOCYTES % 11.7 % (20.0-50.0); MEAN CORPUSCULAR HEMOGLOBIN 28.1 pg (28.0-32.0); MEAN CORPUSCULAR VOLUME 87.6 fL (80.0-94.0); MEAN PLATELET VOLUME 9.4 fl (7.4-10.4); MONOCYTES % 8.2 % (2.0-8.0); NEUTROPHILS % 78.1 % (40.0-76.0); PLATELET 140 x1000/uL (130-400); RED BLOOD CELL COUNT 4.31 mill/uL (4.7-6.1); RED CELL DISTRIBUTION WIDTH 15.1 % (11.6-14.6)
[2020-06-28] MEDS: BLOOD SUGAR DIAGNOSTIC STRIP TEST SCH ×4 (07:30→21:00)
[2020-06-28] MEDS: INSULIN LISPRO 100 UNITS/ML SUBCUT SCH ×4 (08:00→21:00)
[2020-06-28] MEDS: FAMOTIDINE 20MG TABLET PO SCH (08:54)
[2020-06-28] MEDS: AMIODARONE HCL 200 MG TABLET PO SCH (08:54)
[2020-06-28] MEDS: LOSARTAN POTASSIUM 50 MG TABLET PO SCH (08:54)
[2020-06-28] MEDS: FUROSEMIDE 40MG TABLET PO SCH (08:55)
[2020-06-28] MEDS: APIXABAN 5 MG TABLET PO SCH ×2 (08:55→18:02)
[2020-06-28] MEDS: PREDNISONE 20MG TABLET PO SCH (08:55)
[2020-06-28] MEDS: AMLODIPINE 10MG TABLET PO SCH (08:55)
[2020-06-29] VITALS (11 sets, daily range): BP systolic 114–166; BP diastolic 40–77
[2020-06-29] MEDS: IPRATROPIUM/ALBUTEROL 0.5-3(2.5)MG/3ML NEB HHN SCH ×3 (03:14→16:55)
[2020-06-29] MEDS: HYDRALAZINE HCL 100MG TABLET PO SCH ×2 (05:56→13:28)
[2020-06-29] MEDS: NITROGLYCERIN OINT 1GM/INCH UDPKT TD SCH ×2 (05:56→13:27)
[2020-06-29] MEDS: BLOOD SUGAR DIAGNOSTIC STRIP TEST SCH ×3 (07:30→16:32)
[2020-06-29] MEDS: INSULIN LISPRO 100 UNITS/ML SUBCUT SCH ×3 (07:58→18:00)
[2020-06-29] MEDS: LOSARTAN POTASSIUM 50 MG TABLET PO SCH (09:19)
[2020-06-29] MEDS: FUROSEMIDE 40MG TABLET PO SCH (09:19)
[2020-06-29] MEDS: FAMOTIDINE 20MG TABLET PO SCH (09:19)
[2020-06-29] MEDS: PREDNISONE 20MG TABLET PO SCH (09:20)
[2020-06-29] MEDS: AMLODIPINE 10MG TABLET PO SCH (09:20)
[2020-06-29] MEDS: AMIODARONE HCL 200 MG TABLET PO SCH (09:21)
[2020-06-29] MEDS: APIXABAN 5 MG TABLET PO SCH ×2 (09:21→16:30)
[2020-07-02] MEDS ORDERED: AMIODARONE HCL 200 MG TABLET PO SCH (09:00)
== END 2020-06-29 20:20 | DRG 189 ==
LOC: ER 22:40 → MICUSO 06-05 03:20 → EDBEDREQSVC 06-06 11:35 → 5EST 06-07 00:04
PROVIDERS: ADMIT Internal Medicine; ATTEND Internal Medicine
PROC: 5A09457 Assistance with Respiratory Ventilation, 24-96 Consecutive Hours, Continuous Positive Airway Pressure (ICD-10-PCS; principal; 2020-06-05)
PROC: 5A09357 Assistance with Respiratory Ventilation, Less than 24 Consecutive Hours, Continuous Positive Airway Pressure (ICD-10-PCS; 2020-06-06)
PROC: 5A09457 Assistance with Respiratory Ventilation, 24-96 Consecutive Hours, Continuous Positive Airway Pressure (ICD-10-PCS; 2020-06-07)
PROC: 5A09357 Assistance with Respiratory Ventilation, Less than 24 Consecutive Hours, Continuous Positive Airway Pressure (ICD-10-PCS; 2020-06-10)
PROC: 5A09357 Assistance with Respiratory Ventilation, Less than 24 Consecutive Hours, Continuous Positive Airway Pressure (ICD-10-PCS; 2020-06-11)
PROC: 5A09357 Assistance with Respiratory Ventilation, Less than 24 Consecutive Hours, Continuous Positive Airway Pressure (ICD-10-PCS; 2020-06-13)
PROC: 5A09357 Assistance with Respiratory Ventilation, Less than 24 Consecutive Hours, Continuous Positive Airway Pressure (ICD-10-PCS; 2020-06-15)
PROC: 5A09357 Assistance with Respiratory Ventilation, Less than 24 Consecutive Hours, Continuous Positive Airway Pressure (ICD-10-PCS; 2020-06-16)
PROC: 5A09357 Assistance with Respiratory Ventilation, Less than 24 Consecutive Hours, Continuous Positive Airway Pressure (ICD-10-PCS; 2020-06-17)
PROC: 5A09357 Assistance with Respiratory Ventilation, Less than 24 Consecutive Hours, Continuous Positive Airway Pressure (ICD-10-PCS; 2020-06-18)
PROC: 5A09357 Assistance with Respiratory Ventilation, Less than 24 Consecutive Hours, Continuous Positive Airway Pressure (ICD-10-PCS; 2020-06-19)
PROC: 5A09357 Assistance with Respiratory Ventilation, Less than 24 Consecutive Hours, Continuous Positive Airway Pressure (ICD-10-PCS; 2020-06-21)
PROC: 5A09357 Assistance with Respiratory Ventilation, Less than 24 Consecutive Hours, Continuous Positive Airway Pressure (ICD-10-PCS; 2020-06-22)
PROC: 5A09357 Assistance with Respiratory Ventilation, Less than 24 Consecutive Hours, Continuous Positive Airway Pressure (ICD-10-PCS; 2020-06-24)
PROC: 5A09357 Assistance with Respiratory Ventilation, Less than 24 Consecutive Hours, Continuous Positive Airway Pressure (ICD-10-PCS; 2020-06-25)
PROC: 5A09357 Assistance with Respiratory Ventilation, Less than 24 Consecutive Hours, Continuous Positive Airway Pressure (ICD-10-PCS; 2020-06-28)
DX: J96.02 Acute respiratory failure with hypercapnia (principal); J18.9 Pneumonia, unspecified organism; G92 Toxic encephalopathy; I50.43 Acute on chronic combined systolic (congestive) and diastolic (congestive) heart failure; J44.1 Chronic obstructive pulmonary disease with (acute) exacerbation; E66.2 Morbid (severe) obesity with alveolar hypoventilation; J44.0 Chronic obstructive pulmonary disease with (acute) lower respiratory infection; Z68.41 Body mass index [BMI] 40.0-44.9, adult; E87.2 Acidosis; I47.1 Supraventricular tachycardia; A04.72 Enterocolitis due to Clostridium difficile, not specified as recurrent; L03.115 Cellulitis of right lower limb; I42.0 Dilated cardiomyopathy; J96.01 Acute respiratory failure with hypoxia; I11.0 Hypertensive heart disease with heart failure; E11.9 Type 2 diabetes mellitus without complications; D69.6 Thrombocytopenia, unspecified; E87.6 Hypokalemia; F17.200 Nicotine dependence, unspecified, uncomplicated; I25.10 Atherosclerotic heart disease of native coronary artery without angina pectoris; I27.21 Secondary pulmonary arterial hypertension; I44.1 Atrioventricular block, second degree; I44.7 Left bundle-branch block, unspecified; I48.0 Paroxysmal atrial fibrillation; I87.2 Venous insufficiency (chronic) (peripheral); I89.0 Lymphedema, not elsewhere classified; J98.4 Other disorders of lung; K59.00 Constipation, unspecified; L30.9 Dermatitis, unspecified; L60.3 Nail dystrophy; R00.1 Bradycardia, unspecified; Z20.822 Contact with and (suspected) exposure to COVID-19; Z75.1 Person awaiting admission to adequate facility elsewhere; Z79.01 Long term (current) use of anticoagulants; Z79.4 Long term (current) use of insulin; Z86.718 Personal history of other venous thrombosis and embolism; Z91.19 Patient's noncompliance with other medical treatment and regimen; Z88.0 Allergy status to penicillin; Z79.891 Long term (current) use of opiate analgesic; Z79.899 Other long term (current) drug therapy; Z95.0 Presence of cardiac pacemaker
CPT/HCPCS: 36415; 36600; 71045; 80048; 80053; 80061; 81003; 82270; 82375; 82550; 82553; 82728; 82805; 82962; 83036; 83605; 83735; 83880; 84145; 84439; 84443; 84484; 85025; 85027; 85379; 87015; 87045; 87427; 87449; 87493; 89055; 93005; 93306; 93970; 94003; 94640; 94660; 97110; 97162; 97166; 97530; 99291; A6261; A9560; C9803; J0360; J0456; J0696; J1650; J1815; J1940; J1956; J2405; J2920; J3010; J3370; J3490; J7042; J7050; J7060; J7512; U0003; A4315